=== PATIENT | female | born 1990 | race American Indian/Alaskan Native ===

== ENCOUNTER 2017-11-06 14:40 | Inpatient (IN) | payer OTHER ==
[2017-11-06 16:11] LABS: Hematocrit 41.1 % (30.3-42.9); Hemoglobin 13.6 gm/dl (10.1-14.3); Mean Corpuscular HGB Conc 33 % (30-34); Mean Corpuscular Hemoglobin 31 pg (28-32); Mean Corpuscular Volume 92 fl (79-97); Platelet Count 218 K/mm3 (140-440); Red Blood Count 4.45 M/mm3 (3.65-5.03); Red Cell Distribution Width 13.8 % (13.2-15.2)
[2017-11-06] MEDS ORDERED: MINERAL OIL PO PRN (16:30)
[2017-11-06] MEDS ORDERED: NARCAN 0.4 MG/1 ML IV PRN (16:30)
[2017-11-06] MEDS ORDERED: BRETHINE SUB-Q PRN (16:30)
[2017-11-06] MEDS ORDERED: XYLOCAINE 2% INFILTRATI ONE (16:30)
[2017-11-06] MEDS ORDERED: STADOL IV PRN (16:30)
[2017-11-06] MEDS ORDERED: ePHEDrine SULFATE IV PRN (16:30)
[2017-11-06] MEDS ORDERED: BRETHINE IVP PRN (16:30)
--- NOTE | 2017-11-06 16:38 | History and Physical Report ---
History of Present Illness Date of examination: 11/06/17 Date of admission: 11/06/17 14:40 Chief complaint: IOL secondary to elevated BP History of present illness: This is a 26 yo at 40+1 weeks admitted to labor and delivery with known BP 140-150/90s. patient was sent in by Dr. Lowe. She is late to care with hx of trich treated in this . 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 denies: smoking, alcohol abuse, prescription drug abuse - Obstetrical History Expected Date of Delivery: 11/05/17 Actual Gestation: 40 Week(s) 1 Day(s) : 3 Para: 2 Hx # Term Pregnancies: 2 Number of Pregnancies: 0 Spontaneous Abortions: 0 Induced : 0 Number of Living Children: 2 Medications and Allergies Allergies Allergy/AdvReac Type Severity Reaction Status Date / Time No Known Allergies Allergy Unverified 11/06/17 15:33 Active Meds: Active Medications Butorphanol Tartrate (Stadol) 2 mg IV Q2H PRN PRN Reason: Pain , Severe (7-10) Ephedrine Sulfate (Ephedrine Sulfate) 10 mg IV Q2M PRN PRN Reason: Hypotension Fentanyl (Sublimaze) 100 mcg IV Q2H PRN PRN Reason: Labor Pain Lactated Ringer's (Lactated Ringers) 1,000 mls @ 125 mls/hr IV DIRECT GERRY Lidocaine (Xylocaine 2%) 20 ml INFILTRATI ONCE ONE Stop: 11/06/17 16:31 Review of Systems All systems: negative - Vital Signs Vital signs: Vital Signs Temp Pulse Resp BP 98.1 F 103 H 16 122/66 11/06/17 15:31 11/06/17 15:31 11/06/17 15:31 11/06/17 15:31 Temp Pulse Resp BP Pulse Ox 98.1 F 103 H 16 122/66 11/06/17 15:31 11/06/17 15:31 11/06/17 15:31 11/06/17 15:31 - Physical Exam Breasts: Positive: normal Cardiovascular: Regular rate, Normal S1 Lungs: Positive: Clear to auscultation, Normal air movement Abdomen: Positive: normal appearance, soft, normal bowel sounds. Negative: distention, tenderness, guarding Genitourinary (Female): Positive: normal external genitalia, normal perenium Vulva: both: normal Uterus: Positive: normal size Anus/Rectum: Positive: normal perianal skin Deep Tendon Reflex Grade: Normal +2 - Obstetrical FHR: category 1 Cervical Dilatation: 1 Cervical Effacement Percentage: 60 station: -3 Uterine Contraction Pattern: Irregular Uterine Tone Measurement Phase: Contraction Results Result Diagrams: 11/06/17 16:00 All other labs normal. Assessment and Plan A/P IUP 40+1 weeks Gestational HTN Term elevated BP will add hydralazine BP>160/110 initiate with cervidil for ripening expect vaginal delivery
[2017-11-06 16:54] LABS: Alanine Aminotransferase 8 units/L (7-56); Uric Acid 4.2 mg/dL (3.5-7.6)
[2017-11-06] MEDS ORDERED: CERVIDIL VG PRN (17:00)
[2017-11-06] MEDS ORDERED: PITOCin/NS 30 UNIT/500ML 30 UNITS/500 ML BAG IV SCH (17:00)
[2017-11-06] MEDS ORDERED: PITOCin/NS 20 UNIT/1000ML DRIP 20 UNITS/1,000 ML BAG IV SCH (17:00)
[2017-11-06 19:24] LABS: Bilirubin,Urine NEG (Negative); Blood,Urine NEG (Negative); Color,Urine Yellow (Yellow); Mucus,Urine 3+ /HPF; Protein,Urine <15 mg/dL mg/dL (Negative)
[2017-11-06] MEDS ORDERED: TUCKS PAD TP PRN (19:48)
[2017-11-06] MEDS ORDERED: AMBIEN PO PRN (19:48)
[2017-11-07] MEDS: LACTATED RINGERS 1,000 ML IV SCH ×2 (05:51→07:57)
[2017-11-07] MEDS: SUBLIMAZE IV PRN ×2 (05:52→08:05)
[2017-11-07] MEDS: PITOCin/NS 30 UNIT/500ML 30 UNITS/500 ML BAG IV SCH ×3 (07:57→13:00)
--- NOTE | 2017-11-07 07:58 | Progress Note ---
Assessment and Plan O: VSS AF A: IUP at 40.3 weeks Induction Day 1.5 Latent Labor P: Active Guille't Pain guille't Subjective - Subjective Date of service: 11/07/17 Patient reports: new complaints (Pain with contractions), movement normal , contractions, other (Denies PIH S&S), no loss of fluid, no vaginal bleeding Objective - Vital Signs Vital Signs: Vital Signs - 12hr 11/07/17 11/07/17 11/07/17 00:24 04:00 05:52 Temperature 97.5 F L 97.6 F Pulse Rate 68 81 Respiratory 16 16 18 Rate Blood Pressure 117/60 110/72 [Left] O2 Sat by Pulse 98 98 Oximetry - Exam Abdomen: Present: normal appearance FHR: category 2 FHR comments: minimal variability Uterine Contraction Monitor Mode: External Cervical Dilatation: 2.5 Cervical Effacement Percentage: 90 station: -2 Uterine Contraction Frequency (min): 2 Uterine Contraction Duration: 60-90 Uterine Contraction Pattern: Regular Uterine Tone Measurement Phase: Resting Uterine Contraction Intensity: Strong/Firm - Labs Labs: Abnormal Labs 11/06/17 16:00 Creatinine 0.4 L Lactate Dehydrogenase 192 H Laboratory Results - last 24 hr 11/06/17 11/06/17 11/06/17 16:00 16:00 16:00 WBC 7.8 RBC 4.45 Hgb 13.6 Hct 41.1 MCV 92 MCH 31 MCHC 33 RDW 13.8 Plt Count 218 Creatinine 0.4 L Estimated GFR > 60 Uric Acid 4.2 AST 13 ALT 8 Lactate Dehydrogenase 192 H Urine Color Urine Turbidity Urine pH Ur Specific [place] Urine Protein Urine Glucose (UA) Urine Ketones Urine Blood Urine Nitrite Urine Bilirubin Urine Urobilinogen Ur Leukocyte Esterase Urine WBC (Auto) Urine RBC (Auto) U Epithel Cells (Auto) Urine Mucus Blood Type AB POSITIVE Antibody Screen Negative 11/06/17 Unknown WBC RBC Hgb Hct MCV MCH MCHC RDW Plt Count Creatinine Estimated GFR Uric Acid AST ALT Lactate Dehydrogenase Urine Color Yellow Urine Turbidity Clear Urine pH 5.0 Ur Specific [place] 1.027 Urine Protein <15 mg/dl Urine Glucose (UA) Neg Urine Ketones Neg Urine Blood Neg Urine Nitrite Neg Urine Bilirubin Neg Urine Urobilinogen 4.0 Ur Leukocyte Esterase Neg Urine WBC (Auto) 1.0 Urine RBC (Auto) 1.0 U Epithel Cells (Auto) 1.0 Urine Mucus 3+ Blood Type Antibody Screen
[2017-11-07] MEDS ORDERED: ePHEDrine SULFATE IV PRN (09:06)
[2017-11-07] MEDS ORDERED: NARCAN 2 MG/2 ML IV PRN (09:06)
--- NOTE | 2017-11-07 09:06 | Anesthesia Consultation ---
Anesthesia Consult and Med Hx Date of service: 11/07/17 - Airway Anesthetic Teeth Evaluation: Good ROM Head & Neck: Adequate Mental/Hyoid Distance: Adequate Mallampati Class: Class II Intubation Access Assessment: Probably Good - Pre-Operative Health Status ASA Pre-Surgery Classification: ASA2 Proposed Anesthetic Plan: Epidural, Spinal - Pulmonary Hx Asthma: No COPD: No Hx Pneumonia: No - Cardiovascular System Hx Hypertension: No - Central Nervous System Hx Seizures: No Hx Psychiatric Problems: No - Endocrine Hx Renal Disease: No Hx End Stage Renal Disease: No Hx Hypothyroidism: No Hx Hyperthyroidism: No - Hematic Hx Anemia: No Hx Sickle Cell Disease: No - Other Systems Hx Alcohol Use: No
[2017-11-07] MEDS ORDERED: fentaNYL-BUPIV 2 MCG/ML-0.125% 200 MCG/100 ML BAG EPIDURAL SCH (10:00)
[2017-11-07] MEDS ORDERED: XYLOCAINE 2% INFILTRATI ONE (12:04)
[2017-11-07] MEDS ORDERED: ZOFRAN ONE (13:04)
[2017-11-07] MEDS ORDERED: ZOFRAN IM ONE (13:11)
[2017-11-07] MEDS ORDERED: NACL 0.9% 1000 ML 1,000 ML ONE ×7 (14:19→17:38)
[2017-11-07] MEDS ORDERED: CYTOTEC ONE (14:42)
--- NOTE | 2017-11-07 14:47 | Consultation ---
History of Present Illness Consult date: 11/07/17 Requesting physician: AMIRA VELASQUEZ Reason for consult: other (Shock, hypoxia) History of present illness: This is a 26 yo at 40+1 weeks admitted to labor and delivery with known BP 140-150/90s. She was induced for hypertension and had anormal vaginal delivery. I was called for stat consult for desaturations, tachycardia and hypotension. The initial thought was that this could be a pulmonary embolism. On arrival to the ICU she was hypotensive, hypoxic with vaginal bleeding that was uncontrollable. She was seen and examined. Vitals, labs, medications, chart were reviewed. 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 denies: smoking, alcohol abuse, prescription drug abuse - Obstetrical History Expected Date of Delivery: 11/05/17 Actual Gestation: 40 Week(s) 1 Day(s) : 3 Para: 2 Hx # Term Pregnancies: 2 Number of Pregnancies: 0 Spontaneous Abortions: 0 Induced : 0 Number of Living Children: 2 Past History Social history: no significant social history, single. denies: smoking, alcohol abuse, prescription drug abuse Medications and Allergies Allergies Allergy/AdvReac Type Severity Reaction Status Date / Time No Known Allergies Allergy Unverified 11/06/17 15:33 Home Medications Medication Instructions Recorded Confirmed Last Taken Type Pnv No.95/Ferrous Fum/Folic AC 1 tab PO QDAY 11/06/17 11/06/17 11/05/17 History [ Vitamins Tablet] Active Meds: Active Medications Butorphanol Tartrate (Stadol) 2 mg IV Q2H PRN PRN Reason: Pain , Severe (7-10) Dinoprostone (Cervidil) 10 mg VG Q6H PRN PRN Reason: Cervical Ripening Last Admin: 11/06/17 18:15 Dose: 10 mg Ephedrine Sulfate (Ephedrine Sulfate) 10 mg IV Q2M PRN PRN Reason: Hypotension Ephedrine Sulfate (Ephedrine Sulfate) 10 mg IV Q2M PRN PRN Reason: Hypotension Fentanyl (Sublimaze) 100 mcg IV Q2H PRN PRN Reason: Labor Pain Last Admin: 11/07/17 08:05 Dose: 100 mcg Lactated Ringer's (Lactated Ringers) 1,000 mls @ 125 mls/hr IV DIRECT GERRY Last Admin: 11/07/17 07:57 Dose: 125 mls/hr Oxytocin/Sodium Chloride (Pitocin/Ns 20 Unit/1000ml Drip) 20 units in 1,000 mls @ 125 mls/hr IV DIRECT GERRY Oxytocin/Sodium Chloride (Pitocin/Ns 30 Unit/500ml) 30 units in 500 mls @ 0 mls /hr IV TITR GERRY; Protocol Last Admin: 11/07/17 13:00 Dose: 8 ml/hr, 8 mls/hr Oxytocin/Sodium Chloride (Pitocin/Ns 30 Unit/500ml) 30 units in 500 mls @ 1 mls /hr IV TITR GERRY; Protocol Fentanyl/Bupivacaine/Sodium Chlor (Fentanyl-Bupiv 2 Mcg/Ml-0.125%) 200 mcg in 100 mls @ 12 mls/hr EPIDURAL TITR GERRY; Protocol Last Admin: 11/07/17 09:37 Dose: 12 mls/hr Mineral Oil (Mineral Oil) 30 ml PO QHS PRN PRN Reason: Constipation Naloxone HCl (Narcan 0.4 Mg/1 Ml) 0.1 mg IV Q2MIN PRN PRN Reason: Res Rate </= 8 or 02 SAT < 92% Naloxone HCl (Narcan 2 Mg/2 Ml) 0.2 mg IV Q5M PRN PRN Reason: Respiratory sedation Terbutaline Sulfate (Brethine) 0.25 mg SUB-Q ONCE PRN PRN Reason: Hyperstimulation/Hypertonicity Terbutaline Sulfate (Brethine) 0.25 mg IVP ONCE PRN PRN Reason: Hyperstimulation/Hypertonicity Witch Yudelka/Glycerin (Tucks Pad) 1 each TP PRN PRN PRN Reason: Hemorrhoids Zolpidem Tartrate (Ambien) 10 mg PO QHS PRN PRN Reason: Insomnia Last Admin: 11/07/17 00:22 Dose: 10 mg Review of Systems All systems: negative (feeling cold) Constitutional: chills, fatigue, weakness, no weight loss, no weight gain, no fever Ears, nose, mouth and throat: deferred Breasts: normal Cardiovascular: lightheadedness, shortness of breath, no chest pain, no orthopnea, no palpitations Respiratory: shortness of breath, no cough, no hemoptysis Gastrointestinal: abdominal pain Genitourinary Female: other (vaginal bleeding) Integumentary: deferred Neurological: no paralysis, no weakness, no parathesias, no numbness Psychiatric: anxiety Hematologic/Lymphatic: no easy bruising, no easy bleeding Allergic/Immunologic: no urticaria, no allergic rhinitis Physical Examination Vital signs: Vital Signs Temp Pulse Resp BP 98.1 F 103 H 16 122/66 11/06/17 15:31 11/06/17 15:31 11/06/17 15:31 11/06/17 15:31 General appearance: other (tachypnic, ) Eyes: non-icteric ENT: oropharynx dry Neck: supple, no lymphadenopathy, no JVD Effort: mildly labored Ascultation: Bilateral: diminished breath sounds Cardiovascular: other (tachycardia, no murmurs, no gallops or rubs) Gastrointestinal: normoactive bowel sounds, soft, non-tender, other (uterus about 20 weeks , appears well contracted) Integumentary: normal Extremities: no cyanosis, no edema, pulses normal, no ischemia or petechiae, cool Musculoskeletal: no deformities non-focal exam, pupils equal and round anxious Results - Laboratory Findings CBC and BMP: 11/07/17 15:30 11/07/17 15:30 Abnormal lab findings: Abnormal Labs 11/06/17 16:00 Creatinine 0.4 L Lactate Dehydrogenase 192 H Assessment and Plan -Hemorrhagic shock -Post hemorrhage -IV access..femoral CVC placed -NIPPV for increased work of breathing -Volume resuscitate -Albumin -Massive transfusion protocol -Get stat CBC, PTT,INR, Fibrinogen, CMP -Place brewer catheter -Vasopressin IV, vasopressor support to keep MAP>65 -Electrolyte replacement for massive blood transfusion--replete calcium, monitor for hyperkalemia -Get IR for possible pelvic artery embolization Discussed with OBGYN..needs to go back to OR for examination under anesthesia to evacuate any retained products. She continues to bleed excessively -If we are unable to control the bleeding she may need a hysterectomy as a life saving measure. Critical care time in (mins) excluding proc time.: 65 Critical care attestation.: If time is entered above; I have spent that time in minutes in the direct care of this critically ill patient, excluding procedure time. Critical Care Time: Patient is critically ill with risk of from hemorrhagic shock, DIC and possible acute renal injury form prolonged hypotension
[2017-11-07] MEDS ORDERED: NACL 0.9% 500 ML 500 ML IV NR ×3 (14:49→15:00)
[2017-11-07] MEDS ORDERED: ALBUTEIN IV ONE (14:49)
[2017-11-07] MEDS ORDERED: Vasostrict 20 UNIT in NACL 0.9% 100 ML IV SCH (15:00)
--- NOTE | 2017-11-07 15:29 | Procedure Note ---
OB Delivery Note - Delivery Date of Delivery: 11/07/17 Surgeon: AMIRA VELASQUEZ Estimated blood loss: 1000cc - Vaginal Delivery presentation: vertex Delivery position: OA Intrapartum events: none Delivery induction: none Delivery augmentation: rupture of membranes, pitocin Delivery monitor: external FHT, external uterine Route of delivery: Indicators for instrumentation: nonreassuring FHR tracing Delivery placenta: spontaneous Delivery cord: 3 umbilical vessels Episiotomy: none Delivery laceration: none Anesthesia: none Delivery comments: I was contacted by the nurse for patient experiencing decels to the 90s. I came to room and noted anterior lip which i was easily able to reduce. patient commenced to pushing and vaccuum applied secondary to NRFHT. Patient delivered after pop off 2 x on her last push. She delivered a viable female in OA presentation at 1358. [facility] team present and clamped and cut cord and handed to peds staff. Cord blood sent and cord pH sent The placenta delivered intact with 3 vessel cord. EBL 400 cc. After placenta removed intact , patient began rolling eyes in head and havingdifficulty bleeding in which we called a code. Patient was evaluated and transferred to the ICU. At ICU patient was noted to be bleeding profusely and at that time I decided to proceed to OR for examination under anesthesia and any procedure that needed to be performed. Bleeding noted in the ICU 500cc and in OR 1000cc. Please see note for OR hysterectomy - Infant A Gender: Female (1,3,7 Apgars)
[2017-11-07] MEDS ORDERED: QUELICIN ONE (16:00)
[2017-11-07] MEDS ORDERED: CYTOTEC PR ONE (16:00)
[2017-11-07 16:02] LABS: Hemoglobin 6.1 gm/dl (10.1-14.3); Mean Corpuscular HGB Conc 34 % (30-34); Mean Corpuscular Hemoglobin 31 pg (28-32); Mean Corpuscular Volume 92 fl (79-97); Platelet Count 125 K/mm3 (140-440); Red Blood Count 1.96 M/mm3 (3.65-5.03)
--- NOTE | 2017-11-07 16:08 | Procedure Note ---
Date of procedure: 11/07/17 Pre-op diagnosis: Hemorrhagic shock Post-op diagnosis: same Procedure: Right femoral central venous catheter Consent obtained from the mother Patient was cleaned and draped in sterile fashion. [place] precautions addressed. Time out. Using ultrasound scan the femoral artery was identified. However it was difficult to visualize the vein. Femoral artery was palpated and the finder needle used to puncture and aspirate the femoral vein. Dark red blood was aspirated. Guidewire was passed without difficulty, a stab wound created and the vein dilated. A triple lumen 16cm CVC was passed.( no 20cm available) Guidewire was removed. Blood aspirated from all [address], sterile dressing placed. Patient tolerated the procedure and there was no immediate complications Anesthesia: local (had an epidural for delivery) Estimated blood loss: none Condition: critical
[2017-11-07 16:14] LABS: Alanine Aminotransferase 6 units/L (7-56); Albumin 1.9 g/dL (3.9-5); BUN/Creatinine Ratio 18; Blood Urea Nitrogen 11 mg/dL (7-17); Calcium 6.5 mg/dL (8.4-10.2); Hemolysis Index 68
[2017-11-07] MEDS ORDERED: GELFOAM TP ONE ×2 (16:15)
[2017-11-07 16:24] LABS: INR 7.01 (0.87-1.13); Partial Thromboplastin Time 126.6 Sec. (24.2-36.6)
[2017-11-07 16:47] LABS: Fibrinogen > 1500 mg/dl (211-480)
[2017-11-07] MEDS ORDERED: AMIDATE IV ONE (17:11)
[2017-11-07] MEDS ORDERED: ANCEF ONE ×2 (17:11)
[2017-11-07] MEDS ORDERED: ACD-A 500 ML IV ONE (17:13)
[2017-11-07] MEDS ORDERED: NEO SYNEPHRINE ONE (17:36)
[2017-11-07] MEDS ORDERED: NACL 0.9% 100 ML ONE ×2 (17:36→17:38)
[2017-11-07] MEDS ORDERED: CALCIUM GLUCONATE 1,000 MG in NACL 0.9% 100 ML IV ONE (18:00)
[2017-11-07] MEDS ORDERED: ARTIFICIAL TEARS OPHTH OINT OU PRN ×2 (18:49→19:25)
[2017-11-07] MEDS ORDERED: VASELINE LIP THERAPY TP PRN ×2 (18:49→19:25)
[2017-11-07] MEDS ORDERED: NACL 0.9% IR ONE (18:54)
[2017-11-07] MEDS ORDERED: ACD-A IV ONE (18:54)
[2017-11-07] MEDS ORDERED: fentaNYL DRIP Premix 2,000 MCG/100 ML BAG IV SCH (19:00)
[2017-11-07] MEDS ORDERED: DIPRIVAN 10 MG/ML 1,000 MG/100 ML BOTTLE IV SCH (19:00)
[2017-11-07] MEDS ORDERED: PHENERGAN PR PRN (19:05)
[2017-11-07] MEDS ORDERED: TYLENOL PO PRN (19:05)
[2017-11-07] MEDS ORDERED: BENADRYL PO PRN (19:05)
[2017-11-07] MEDS ORDERED: NORCO 5/325 PO PRN (19:05)
[2017-11-07] MEDS ORDERED: DULCOLAX PR PRN (19:05)
[2017-11-07] MEDS ORDERED: TORADOL IV PRN (19:05)
[2017-11-07] MEDS ORDERED: ZOFRAN IV PRN (19:05)
[2017-11-07] MEDS ORDERED: LANSINOH TP PRN (19:05)
[2017-11-07] MEDS ORDERED: TUCKS PAD TP PRN (19:05)
[2017-11-07] MEDS ORDERED: PERCOCET 5/325 PO PRN (19:05)
[2017-11-07] MEDS ORDERED: MILK OF MAGNESIA PO PRN (19:05)
[2017-11-07] MEDS ORDERED: PHENERGAN PO PRN (19:05)
--- NOTE | 2017-11-07 19:30 | Event Note ---
Date: 11/07/17 Back from OR, intubated. On vasopressor support Apparently had hysterectomy for control of bleeding VAP bundle addressed ABG Adjust minute ventilation once ABGs are available. Get CXR Agitation/Analgesia management
[2017-11-07 19:44] LABS: Eosinophils % (Auto) 0.2 % (0.0-4.3); Hemoglobin 6.5 gm/dl (10.1-14.3); Mean Corpuscular HGB Conc 33 % (30-34); Mean Corpuscular Hemoglobin 31 pg (28-32); Mean Corpuscular Volume 95 fl (79-97); Monocytes # (Auto) 2.5 K/mm3 (0.0-0.8); Monocytes % (Auto) 10.3 % (0.0-7.3); Platelet Count 112 K/mm3 (140-440); Red Cell Distribution Width 14.4 % (13.2-15.2)
[2017-11-07 19:45] LABS: INR 1.88 (0.87-1.13)
[2017-11-07 19:46] LABS: Partial Thromboplastin Time 52.9 Sec. (24.2-36.6)
[2017-11-07] MEDS ORDERED: [UNRECOGNIZED DRUG - REMARK] PO SCH (19:53)
[2017-11-07 19:57] LABS: BUN/Creatinine Ratio 13; Blood Urea Nitrogen 12 mg/dL (7-17); Hemolysis Index 12
[2017-11-07] MEDS ORDERED: SODIUM CHLORIDE FLUSH SYRINGE 10 ML IV SCH (20:00)
[2017-11-07] MEDS ORDERED: MOTRIN PO SCH (20:00)
[2017-11-07 20:01] LABS: Hematocrit 19.9 % (30.3-42.9)
[2017-11-07 20:03] LABS: Basophils % (Auto) 0.1 % (0.0-1.8); Lymphocytes % (Auto) 6.8 % (13.4-35.0)
[2017-11-07 20:04] LABS: Lymphocytes # (Auto) 1.6 K/mm3 (1.2-5.4)
[2017-11-07 20:06] LABS: Alanine Aminotransferase 7 units/L (7-56); Uric Acid 3.6 mg/dL (3.5-7.6)
[2017-11-07 20:10] LABS: Calcium 5.4 mg/dL (8.4-10.2)
[2017-11-07] MEDS ORDERED: CALCIUM GLUCONATE 2,000 MG in NACL 0.9% 100 ML IV ONE (20:22)
[2017-11-07] MEDS: LEVOPHED DRIP 4 MG/NS 250 ML 4 MG/250 ML BAG IV SCH ×2 (20:38→23:45)
--- NOTE | 2017-11-07 20:39 | Operative Report ---
Operative Report Operative Report: 11/07/17 PREOPERATIVE DIAGNOSES: 1. Uterine atony 2. hemorrhage 3. s/p 4.hypovolemic shock POSTOPERATIVE DIAGNOSES: 1-4 KVNG 5. Hematoma on the right posterior 6. Cervical laceration OPERATION: Supracervical hysterectomy and repair of cervical laceration ESTIMATED BLOOD LOSS: 2000ml URINE OUTPUT: 125 mL, red color OPERATION: Supracervical hysterectomy. OPERATION IN DETAIL: The patient was placed in the dorsal supine position after an adequate level of general anesthesia was obtained. The [place] was draining red bloody urine from the bladder. After the patient was prepped and draped in the usual sterile manner, a Pfannenstiel incision was made. Subcutaneous tissue was incised until the level of the rectus fascia was reached. A placido was made in the fascia. This was extended the length of the incision using Villa scissors. The recti muscles were . The peritoneum entered bluntly with fingers. The incision extended vertically up and down taking care to avoid the bladder at the lower pole. The uterus was globular and uniformly enlarged and very boggy. The ovaries were normal for age and so were the tubes. The fundus was delivered out of the incision. The right round ligament was clamped with two Xiomara clamps, cut with Metzenbaum scissors and suture ligated with #0 Vicryl. The anterior leaf of the broad ligament was cut using Metzenbaum scissors. The bladder that was adherent to the anterior aspect of the uterus was gently dissected using sharp and blunt dissection and it was gently pushed down with the sponge on a stick. Two fingers were inserted through the posterior leaf of the right broad ligament. The tissue was cut with Metzenbaum scissors and it was clamped using a straight Ambrocio clamp. Another clamp was placed medial to this. It was cut with Metzenbaum scissors. Sutures transfixed x2 using #0 Vicryl. The right uterine artery was then skeletonized, clamped at the level of the cervical os using a curved Ambrocio clamp. Another clamp was placed medial to this. It was cut with the Metzenbaum scissors and suture transfixed x2 using #0 Vicryl. Similar procedure was done on the opposite side. A superficial incision was made on the anterior pubovesical cervical fascia using the knife and using the sponge on the stick, the tissue was further advanced, trying to avoid trauma to the bladder and ureters. On the right cardinal ligament, a small bite of tissue was taken using straight Ambrocio clamp. It was cut with the knife and suture transfixed using #0 Vicryl. The cervix was preserved. A knife was taken and the fundus was amputated from the cervix and handed over to the scrub nurse to be sent to the lab. The cervix was approximated using interrupted sutures of #0 Vicryl . Adequate hemostasis was assured. Once appropriate hemostasis had been achieved and the lap and instruments counts were reported as correct, restocin and surgicell applied to area of oozing. I evaluated the cervix and noted that on the left lacceration noted with figure of 8 of pop off 0 vicryl used to repair and restocin and surgicel placed. The cervix was approximated using interrupted sutures of #0 Vicryl . A holland drain placed on the right of the patient. Adequate hemostasis was assured. Approximation of fascia using PDS #1 continuous stitch . The skin was approximated [place]. The patient tolerated the procedure well and returned to the ICU in stable condition. A vaginal packing placed in the cervix.
[2017-11-07] MEDS ORDERED: NACL 0.9% 500 ML 500 ML IV ONE ×2 (20:53→21:26)
--- NOTE | 2017-11-07 20:53 | XRay Report ---
FINAL REPORT PROCEDURE: XR CHEST 1V AP TECHNIQUE: Chest radiograph anteroposterior view. CPT 90603 HISTORY: ETT placement COMPARISON: No prior studies are available for comparison. FINDINGS: Heart: Normal. Mediastinum/Vessels: Normal. Lungs/Pleural space: Lungs are clear and expanded. There are no infiltrates.. Bony thorax: No acute osseous abnormality. Life support devices: ET tube is in the mid trachea is 2 centimeters above the wilner.. IMPRESSION: Heart size is normal.. Lungs are clear and expanded. There are no infiltrates.. ET tube is in the mid trachea is 2 centimeters above the wilner..
[2017-11-07] MEDS ORDERED: NACL 0.9% 1000 ML 1,000 ML IV ONE (21:10)
[2017-11-07] MEDS ORDERED: COLACE PO SCH (22:00)
[2017-11-07] MEDS ORDERED: NACL 0.9% 1000 ML 1,000 ML IV SCH (22:00)
[2017-11-07] MEDS ORDERED: ALBURX 25% (ALBUMIN) IV ONE (22:12)
[2017-11-07 22:33] LABS: Anisocytosis 1+; Basophils % (Manual) 0 % (0.0-1.8); Eosinophils % (Manual) 0.5 % (0.0-4.3); Monocytes % (Manual) 2.5 % (0.0-7.3); Platelet Estimate Consistent w Auto; Total Cells Counted 200
[2017-11-07] MEDS: ZOSYN/NS 4.5GM/100ML 4.5 GM/100 ML VIAL IV SCH ×2 (22:54→23:40)
[2017-11-07 23:32] LABS: Band Neutrophils # (Manual) 3.3 K/mm3; Basophils % (Manual) 0 % (0.0-1.8); Eosinophils % (Manual) 0 % (0.0-4.3); Total Cells Counted 200
[2017-11-07 23:33] LABS: Platelet Estimate Consistent w Auto
[2017-11-08] MEDS: LEVOPHED DRIP 4 MG/NS 250 ML 4 MG/250 ML BAG IV SCH (02:39)
--- NOTE | 2017-11-08 03:05 | XRay Report ---
FINAL REPORT PROCEDURE: XR CHEST 1V AP TECHNIQUE: Chest radiograph anteroposterior view. CPT 82920 HISTORY: follow up respiratory failure COMPARISON: No prior studies are available for comparison. FINDINGS: Heart: Normal. Mediastinum/Vessels: Normal. Lungs/Pleural space: Normal. Bony thorax: No acute osseous abnormality. Life support devices: The endotracheal tube is approximately 1 centimeter from the wilner.. IMPRESSION: No acute cardiopulmonary abnormality. The endotracheal tube is approximately 1 centimeter from the wilner..
[2017-11-08] MEDS ORDERED: NACL 0.9% 500 ML 500 ML ONE (05:17)
[2017-11-08] MEDS ORDERED: BOOSTRIX IM ONE (06:00)
[2017-11-08 07:01] LABS: Hematocrit 21.2 % (30.3-42.9); Mean Corpuscular HGB Conc 33 % (30-34); Mean Corpuscular Hemoglobin 31 pg (28-32); Mean Corpuscular Volume 94 fl (79-97); Red Blood Count 2.27 M/mm3 (3.65-5.03); Red Cell Distribution Width 14.3 % (13.2-15.2)
[2017-11-08 07:06] LABS: Platelet Count 73 K/mm3 (140-440)
[2017-11-08 07:21] LABS: Calcium 5.6 mg/dL (8.4-10.2)
[2017-11-08] MEDS: ZOSYN/NS 4.5GM/100ML 4.5 GM/100 ML VIAL IV SCH ×3 (07:40→22:27)
[2017-11-08] MEDS ORDERED: SODIUM BICARBONATE IV ONE (09:32)
--- NOTE | 2017-11-08 09:42 | Consultation ---
History of Present Illness - Reason for Consult Consult date: 11/08/17 acute renal failure, hyperkalemia, metabolic acidosis Requesting physician: BOO MCKEON - History of Present Illness This is a 26 yo AAF without significant PMhx, with at 40+1 weeks initially admitted to labor and delivery. Pt had anormal vaginal delivery. post-delivery course was complicated by heavy, uncontrollable bleeding secondary to cervical laceration, pt underwent emergent hysterectomy/repair of cervical laceration. Course was complicated by hemorrahgic shock, requring vasopressor support incl. vasopressin, levophed. pt was intubated, transferred to the ICU. labs showed worsening metabolic acidosis and hyperkalemia with K of 7 in the setting of renal failure. BUN/Cr elevated at 24/1.9mg/dl from 12/0.9mg/dl, pt is oliguric. Renal consult is requested for management of ELÍAS/hyperkalemia. Pt seen and examined at bedside, intubated, however not sedated, awake, alert, following commands. at bedside. Past History Past Medical History: No medical history Social history: no significant social history, single. denies: smoking, alcohol abuse, prescription drug abuse Family history: no significant family history Medications and Allergies Allergies Allergy/AdvReac Type Severity Reaction Status Date / Time No Known Allergies Allergy Unverified 11/06/17 15:33 Home Medications Medication Instructions Recorded Confirmed Last Taken Type Pnv No.95/Ferrous Fum/Folic AC 1 tab PO QDAY 11/06/17 11/06/17 11/05/17 History [ Vitamins Tablet] Active Meds: Active Medications Acetaminophen (Tylenol) 650 mg PO Q4H PRN PRN Reason: Pain MILD(1-3)/Fever >100.5/TANG Bisacodyl (Dulcolax) 10 mg MD BID PRN PRN Reason: Constipation Dextrose (D50w (25gm) Syringe) 50 ml IV ONCE ONE Stop: 11/08/17 10:01 Famotidine (Pepcid) 20 mg IV DAILY GERRY Hydrophilic Ointment (Vaseline Lip Therapy) 1 applic TP Q2HR PRN PRN Reason: Dry Lips Vasopressin 20 unit/ Sodium (Chloride) 101 mls @ 9.09 mls/hr IV TITR GERRY; Protocol Piperacillin Sod/Tazobactam Sod (Zosyn/Ns 4.5gm/100ml) 4.5 gm in 100 mls @ 200 mls/hr IV Q8HR GERRY; Protocol Last Admin: 11/08/17 07:40 Dose: 200 mls/hr Fentanyl Citrate (Fentanyl Drip Premix) 2,000 mcg in 100 mls @ 3.243 mls/hr IV TITR GERRY; Protocol Last Titration: 11/08/17 08:15 Dose: 0 mcg/kg/hr, 0 mls/hr Propofol (Diprivan 10 Mg/Ml) 1,000 mg in 100 mls @ 1.946 mls/hr IV TITR GERRY; Protocol Norepinephrine (Levophed Drip 4 Mg/Ns 250 Ml) 4 mg in 250 mls @ 7.5 mls/hr IV TITR GERRY; Protocol Last Titration: 11/08/17 07:02 Dose: Infused Sodium Chloride (Nacl 0.9% 1000 Ml) 1,000 mls @ 100 mls/hr IV DIRECT GERRY Last Admin: 11/07/17 22:43 Dose: 100 mls/hr Calcium Gluconate 2,000 mg/ (Sodium Chloride) 120 mls @ 660 mls/hr IV ONCE ONE Stop: 11/08/17 10:10 Sodium Bicarbonate 50 meq/ (Sodium Chloride) 1,050 mls @ 100 mls/hr IV DIRECT GERRY Insulin Human Regular (Humulin R) 5 units IV ONCE ONE Stop: 11/08/17 10:01 Multivitamins (Centrum Liq) 5 ml PO QDAY GERRY Ondansetron HCl (Zofran) 4 mg IV Q8H PRN PRN Reason: Nausea And Vomiting Sodium Chloride (Sodium Chloride Flush Syringe 10 Ml) 10 ml IV PRN GERRY Sodium Polystyrene Sulfonate (Kionex) 30 gm MD ONCE ONE Stop: 11/08/17 10:01 Review of Systems ROS unobtainable: due to endotracheal tube Exam - Vital Signs Vital signs: Vital Signs Temp Pulse Resp BP 98.1 F 103 H 16 122/66 11/06/17 15:31 11/06/17 15:31 11/06/17 15:31 11/06/17 15:31 - General Appearance General appearance: well-developed, well-nourished, appears stated age, intubated EENT: ATNC, PERRL, mucous membranes moist Neck: Present: neck supple Respiratory: Clear to Ascultation Heart: regular, S1S2 Gastrointestinal: Present: normoactive bowel sounds, tenderness Integumentary: no rash, other (no edema b/l LE ) Neurologic: no focal deficit, alert and oriented x3, strength 5/5, CN 3-12 intact Psychiatric: mood/affect appropriate, cooperative Results - Lab Results 11/08/17 06:30 11/08/17 06:30 Most recent lab results Calcium 5.6 mg/dL (8.4-10.2) L* 11/08/17 06:30 Laboratory Tests 11/06/17 11/06/17 11/07/17 17:30 Unknown 14:27 POC ABG pH 7.067 L POC ABG pCO2 70.3 H POC ABG pO2 24 L POC ABG HCO3 20.2 POC ABG Total CO2 22 POC ABG O2 Sat 24 POC ABG Base Excess -10 FiO2 21 Glucose Lactic Acid Uric Acid Calcium Total Bilirubin AST ALT Alkaline Phosphatase Lactate Dehydrogenase Total Protein Albumin Albumin/Globulin Ratio Urine Color Yellow Urine Turbidity Clear Urine pH 5.0 Ur Specific Alfred 1.027 Urine Protein <15 mg/dl Urine Glucose (UA) Neg Urine Ketones Neg Urine Blood Neg Urine Nitrite Neg Urine Bilirubin Neg Urine Urobilinogen 4.0 Ur Leukocyte Esterase Neg Urine WBC (Auto) 1.0 Urine RBC (Auto) 1.0 U Epithel Cells (Auto) 1.0 Urine Mucus 3+ RPR Nonreactive 11/07/17 11/07/17 11/07/17 15:30 19:23 19:23 POC ABG pH POC ABG pCO2 POC ABG pO2 POC ABG HCO3 POC ABG Total CO2 POC ABG O2 Sat POC ABG Base Excess FiO2 Glucose 106 H Lactic Acid 7.40 H* Uric Acid 3.6 Calcium 6.5 L Total Bilirubin 1.50 H AST 18 ALT 6 L Alkaline Phosphatase 93 Lactate Dehydrogenase 235 H Total Protein 3.2 L Albumin 1.9 L Albumin/Globulin Ratio 1.5 Urine Color Urine Turbidity Urine pH Ur Specific Alfred Urine Protein Urine Glucose (UA) Urine Ketones Urine Blood Urine Nitrite Urine Bilirubin Urine Urobilinogen Ur Leukocyte Esterase Urine WBC (Auto) Urine RBC (Auto) U Epithel Cells (Auto) Urine Mucus RPR 11/08/17 11/08/17 05:39 06:30 POC ABG pH 7.372 POC ABG pCO2 23.4 L POC ABG pO2 246 H POC ABG HCO3 13.6 POC ABG Total CO2 14 POC ABG O2 Sat 100 POC ABG Base Excess -12 FiO2 50 Glucose Lactic Acid Uric Acid Calcium 5.6 L* Total Bilirubin AST ALT Alkaline Phosphatase Lactate Dehydrogenase Total Protein Albumin Albumin/Globulin Ratio Urine Color Urine Turbidity Urine pH Ur Specific Alfred Urine Protein Urine Glucose (UA) Urine Ketones Urine Blood Urine Nitrite Urine Bilirubin Urine Urobilinogen Ur Leukocyte Esterase Urine WBC (Auto) Urine RBC (Auto) U Epithel Cells (Auto) Urine Mucus RPR Assessment and Plan - Patient Problems (1) Acute kidney failure with tubular necrosis Current Visit: Yes Status: Acute Plan to address problem: secondary to hemorrhagic shock. pt is currently oliguric, however BP is now stabilized s/p multiple blood products, on vasopressin/levophed, which is currently being titrated down. Will treat hyperkalemia/met acidosis medically as below, if refractory to medical treatment with worsening renal function will consider renal replacement therapy. cont supportive care for ELÍAS/ATN, avoid nephrotoxins, NSAIDs, cont vasopressor support to keep MAP < 65mmhg. D/w RN, ICU team, Dr Mckeon, pt's at bedside regarding renal care plan. Total CCM time spent 46min. (2) Hyperkalemia Current Visit: Yes Status: Acute Plan to address problem: medical treatment with D50, IV insulin, Sodium bicarb 50meq IVP, start bicarb gtt. once NGT placed will give kayexelate. if hyperkalemia is refractory to medical treatment will consider renal replacement therapy. (3) Metabolic acidosis Current Visit: Yes Status: Acute Plan to address problem: 1 amp of na bicarb 50meq, start bicarb gtt. (4) Hemorrhagic shock Current Visit: Yes Status: Acute Plan to address problem: s/p emergent hysterectomy (5) Acute blood loss anemia Current Visit: Yes Status: Acute Plan to address problem: s/p multiple blood porducts incl. 6PRBC, 4 FFPs. transfuse prn for Hb <7 (6) Acute respiratory failure with hypoxia Current Visit: Yes Status: Acute Plan to address problem: vent management as per Dr Mckeon
[2017-11-08] MEDS: PEPCID IV SCH (09:55)
[2017-11-08] MEDS ORDERED: PRENATAL VITAMIN PO SCH (10:00)
[2017-11-08] MEDS ORDERED: CALCIUM GLUCONATE 2,000 MG in NACL 0.9% 100 ML IV ONE (10:00)
[2017-11-08] MEDS ORDERED: HumuLIN R IV ONE (10:00)
[2017-11-08] MEDS ORDERED: KIONEX PR ONE (10:00)
[2017-11-08] MEDS ORDERED: D50W (25GM) Syringe IV ONE (10:00)
[2017-11-08] MEDS ORDERED: SODIUM BICARBONATE 50 MEQ in NACL 0.9% 1000 ML 1,000 ML IV SCH (10:00)
[2017-11-08] MEDS: SUBLIMAZE IV PRN ×4 (11:53→22:01)
[2017-11-08] MEDS ORDERED: FLAGYL 500 MG/100 ML 500 MG/100 ML BAG IV ONE (12:00)
[2017-11-08] MEDS ORDERED: SODIUM BICARBONATE 150 MEQ in D5W 1,000 ML IV ONE (12:00)
[2017-11-08] MEDS: FLAGYL 500 MG/100 ML 500 MG/100 ML BAG IV SCH ×2 (12:18→22:11)
[2017-11-08 12:22] LABS: INR 1.4 (0.87-1.13); Partial Thromboplastin Time 37.7 Sec. (24.2-36.6)
[2017-11-08 12:35] LABS: Albumin 1.8 g/dL (3.9-5); Calcium 6.4 mg/dL (8.4-10.2)
[2017-11-08] MEDS: Centrum Liq PO SCH (14:09)
--- NOTE | 2017-11-08 14:25 | Progress Note ---
Assessment and Plan Post operative hypoxemic resppiratory failure on MVS -Hemorrhagic shock -Massive blood transfusion -Metabolic acidosis -Acute kidney failure secondary to ATN -Sepsis -post hysterectomy -Post hemorrhage -DIC -Hyperkalemia -VAP bundle addresed -Plan to get SBT today and liberate from mechanical ventilatory support- -IV access..femoral CVC -Renal consult placed, discussed with cuffing machine operator -Give one dose of bicarbonate, medically treat hyperkalemia -Avoid nephrotoxics and adjust all medication dosing for GFR/CrCL -SCDs for VTE prophylaxis -Empiric antibiotics..Zosyn -Metronidazole for 24 hours only. No data to suggest double anaerobic coverage is needed. Follow up all cultures and monitor WCC -No further transfusions of blood products, get CBC and renal panel in 12 hours -Monitor epidural site for further bleeding -Supportive care -Electrolyte replacement for massive blood transfusion--replete calcium, monitor for hyperkalemia Discussed with OBGYN( Dr. Mai) Subjective Date of service: 11/08/17 Principal diagnosis: Hemrrohagic shock, DIC, Septic shock, DIC, post hemorrhage Interval history: Follow up for acute hypoxic respiratory failure( post operatively), hemorrhagic shock, DIC, septic shock Seen and examined. Vitals, labs, medications, chart reviewed. Events overnight noted Off vasopresor support Discussed in IDT rounds Objective Vital Signs - 12hr 11/08/17 11/08/17 11/08/17 02:24 02:31 02:45 Temperature 98.4 F Pulse Rate 111 H 106 H Respiratory 17 18 Rate Blood Pressure 108/73 131/85 O2 Sat by Pulse 100 100 Oximetry 11/08/17 11/08/17 11/08/17 03:00 03:15 03:30 Temperature Pulse Rate 100 H 102 H 101 H Respiratory 17 19 18 Rate Blood Pressure 121/92 121/73 119/83 O2 Sat by Pulse 100 100 100 Oximetry 11/08/17 11/08/17 11/08/17 03:45 04:00 04:01 Temperature 98.4 F Pulse Rate 100 H 101 H 108 H Respiratory 18 10 L Rate Blood Pressure 118/70 127/86 108/81 O2 Sat by Pulse 100 100 100 Oximetry 11/08/17 11/08/17 11/08/17 04:03 04:15 04:30 Temperature 98.4 F Pulse Rate 114 H 113 H Respiratory 15 16 Rate Blood Pressure 108/81 127/86 O2 Sat by Pulse 100 100 Oximetry 11/08/17 11/08/17 11/08/17 04:45 05:01 05:15 Temperature Pulse Rate 107 H 104 H 105 H Respiratory 17 17 17 Rate Blood Pressure 127/86 131/80 136/78 O2 Sat by Pulse 100 100 100 Oximetry 11/08/17 11/08/17 11/08/17 05:31 05:35 05:45 Temperature 98.5 F Pulse Rate 109 H 110 H Respiratory 16 13 Rate Blood Pressure 133/41 126/72 O2 Sat by Pulse 100 100 Oximetry 11/08/17 11/08/17 11/08/17 06:00 06:08 06:15 Temperature 98.5 F Pulse Rate 101 H 96 H Respiratory 18 19 Rate Blood Pressure 132/61 134/71 O2 Sat by Pulse 100 100 Oximetry 11/08/17 11/08/17 11/08/17 06:30 06:45 07:00 Temperature Pulse Rate 101 H 105 H 99 H Respiratory 20 17 17 Rate Blood Pressure 135/70 136/64 128/71 O2 Sat by Pulse 100 100 100 Oximetry 11/08/17 11/08/17 11/08/17 07:15 07:30 07:45 Temperature Pulse Rate 107 H 109 H 97 H Respiratory 15 13 19 Rate Blood Pressure 122/81 129/74 O2 Sat by Pulse 100 100 100 Oximetry 11/08/17 11/08/17 11/08/17 08:00 08:01 08:02 Temperature 98.7 F Pulse Rate 101 H 106 H Respiratory 17 Rate Blood Pressure 139/64 139/64 O2 Sat by Pulse 100 100 Oximetry 11/08/17 11/08/17 11/08/17 08:05 08:15 08:30 Temperature Pulse Rate 100 H 95 H 116 H Respiratory 10 L 9 L 11 L Rate Blood Pressure 139/94 127/69 116/55 O2 Sat by Pulse 100 100 100 Oximetry 11/08/17 11/08/17 11/08/17 08:45 09:00 09:14 Temperature 98.1 F Pulse Rate 120 H 114 H 114 H Respiratory 10 L 12 11 L Rate Blood Pressure 116/64 116/68 116/68 O2 Sat by Pulse 100 100 100 Oximetry 05/02/18 05/02/18 05/02/18 09:15 09:29 09:30 Temperature 97.9 F Pulse Rate 109 H 123 H 116 H Respiratory 10 L 13 10 L Rate Blood Pressure 118/62 118/62 120/68 O2 Sat by Pulse 100 100 100 Oximetry 11/08/17 11/08/17 11/08/17 09:45 09:59 10:00 Temperature 98.4 F Pulse Rate 115 H 113 H 115 H Respiratory 12 13 12 Rate Blood Pressure 109/60 108/67 108/67 O2 Sat by Pulse 100 100 100 Oximetry 11/08/17 11/08/17 11/08/17 10:15 10:30 10:45 Temperature Pulse Rate 152 H 133 H 134 H Respiratory 16 14 13 Rate Blood Pressure 103/72 124/64 128/68 O2 Sat by Pulse 100 100 100 Oximetry 11/08/17 11/08/17 11/08/17 11:00 11:15 11:30 Temperature Pulse Rate 118 H 114 H 141 H Respiratory 12 13 17 Rate Blood Pressure 123/62 119/66 129/75 O2 Sat by Pulse 100 100 100 Oximetry 11/08/17 11/08/17 11/08/17 11:31 11:46 11:53 Temperature Pulse Rate 155 H Respiratory 25 H 20 Rate Blood Pressure 129/75 O2 Sat by Pulse 100 100 Oximetry 11/08/17 11/08/17 11/08/17 12:00 12:01 12:16 Temperature 100.9 F H Pulse Rate 143 H 155 H Respiratory 14 21 Rate Blood Pressure 124/69 124/69 O2 Sat by Pulse 100 100 Oximetry 11/08/17 11/08/17 11/08/17 12:30 12:45 13:00 Temperature Pulse Rate 140 H 137 H 133 H Respiratory 20 18 19 Rate Blood Pressure 125/78 122/69 122/69 O2 Sat by Pulse 100 100 100 Oximetry 11/08/17 11/08/17 13:15 13:30 Temperature Pulse Rate 133 H 138 H Respiratory 13 20 Rate Blood Pressure 115/72 122/69 O2 Sat by Pulse 100 100 Oximetry Constitutional: other (orally intubated to mechanical ventilatory support) Eyes: non-icteric ENT: oropharynx dry Neck: supple, no lymphadenopathy, no JVD Effort: normal, mildly labored Ascultation: Bilateral: clear, diminished breath sounds Cardiovascular: other (tachycardia, no murmurs, no gallops or rubs) Gastrointestinal: normoactive bowel sounds, soft, non-tender, tender, other (ADRIEN drain in place, clean dry abdominal dressing) Integumentary: normal Extremities: no cyanosis, no edema, pulses normal, no ischemia or petechiae, cool Neurologic: non-focal exam, pupils equal and round Psychiatric: mood appropriate, affect normal, anxious CBC and BMP: 11/08/17 06:30 11/08/17 12:01 ABG, PT/INR, D-dimer: ABG POC ABG pH 7.372 (7.35-7.45) 11/08/17 05:39 POC ABG pCO2 23.4 (35-45) L 11/08/17 05:39 POC ABG pO2 246 (80-105) H 11/08/17 05:39 POC ABG HCO3 13.6 11/08/17 05:39 POC ABG Total CO2 14 11/08/17 05:39 POC ABG O2 Sat 100 11/08/17 05:39 PT/INR, D-dimer PT 18.0 Sec. (12.2-14.9) H 11/08/17 12:01 INR 1.40 (0.87-1.13) H 11/08/17 12:01 D-Dimer > 50409 ng/mlDDU (0-234) H 11/07/17 15:30 Abnormal lab findings: Abnormal Labs 11/06/17 11/06/17 11/07/17 16:00 16:00 14:27 WBC RBC Hgb Hct Plt Count Lymph % (Auto) Schleicher % (Auto) Schleicher # Seg Neutrophils % Seg Neuts % (Manual) Lymphocytes % (Manual) Seg Neutrophils # Seg Neutrophils # Man Lymphocytes # (Manual) PT INR APTT Fibrinogen D-Dimer POC ABG pH 7.067 L POC ABG pCO2 70.3 H POC ABG pO2 24 L Sodium Potassium Chloride Carbon Dioxide BUN Creatinine 0.4 L Glucose Lactic Acid Calcium Total Bilirubin AST ALT Lactate Dehydrogenase 192 H Total Protein Albumin Crossmatch See Detail 11/07/17 11/07/17 11/07/17 15:30 15:30 15:30 WBC 21.7 H RBC 1.96 L Hgb 6.1 L D Hct 18.0 L* D Plt Count 125 L Lymph % (Auto) Schleicher % (Auto) Schleicher # Seg Neutrophils % Seg Neuts % (Manual) 95.5 H Lymphocytes % (Manual) 1.5 L Seg Neutrophils # Seg Neutrophils # Man 20.7 H Lymphocytes # (Manual) 0.3 L PT 65.9 H INR 7.01 H* APTT 126.6 H* Fibrinogen > 1500 H D-Dimer > 53550 H POC ABG pH POC ABG pCO2 POC ABG pO2 Sodium Potassium Chloride 107.1 H Carbon Dioxide 18 L BUN Creatinine 0.6 L Glucose 106 H Lactic Acid Calcium 6.5 L Total Bilirubin 1.50 H AST ALT 6 L Lactate Dehydrogenase Total Protein 3.2 L Albumin 1.9 L Crossmatch 11/07/17 11/07/17 11/07/17 18:35 19:23 19:23 WBC 23.9 H RBC 2.10 L Hgb 6.5 L Hct 19.9 L* Plt Count 112 L Lymph % (Auto) 6.8 L Schleicher % (Auto) 10.3 H Schleicher # 2.5 H Seg Neutrophils % 82.0 H Seg Neuts % (Manual) 81.5 H Lymphocytes % (Manual) 2.5 L Seg Neutrophils # 19.6 H Seg Neutrophils # Man 19.5 H Lymphocytes # (Manual) 0.6 L PT 22.8 H INR 1.88 H APTT 52.9 H Fibrinogen D-Dimer POC ABG pH POC ABG pCO2 POC ABG pO2 Sodium Potassium Chloride Carbon Dioxide BUN Creatinine Glucose Lactic Acid Calcium Total Bilirubin AST ALT Lactate Dehydrogenase Total Protein Albumin Crossmatch See Detail 11/07/17 11/07/17 11/07/17 19:23 19:23 19:23 WBC RBC Hgb Hct Plt Count Lymph % (Auto) Schleicher % (Auto) Schleicher # Seg Neutrophils % Seg Neuts % (Manual) Lymphocytes % (Manual) Seg Neutrophils # Seg Neutrophils # Man Lymphocytes # (Manual) PT INR APTT Fibrinogen D-Dimer POC ABG pH POC ABG pCO2 POC ABG pO2 Sodium Potassium Chloride 109.3 H Carbon Dioxide 16 L BUN Creatinine Glucose 151 H Lactic Acid 7.40 H* Calcium 5.4 L* D Total Bilirubin AST ALT Lactate Dehydrogenase 235 H Total Protein Albumin Crossmatch 11/08/17 11/08/17 11/08/17 05:39 06:30 06:30 WBC 24.0 H RBC 2.27 L Hgb 7.0 L Hct 21.2 L Plt Count 73 L Lymph % (Auto) Schleicher % (Auto) Schleicher # Seg Neutrophils % Seg Neuts % (Manual) Lymphocytes % (Manual) Seg Neutrophils # Seg Neutrophils # Man Lymphocytes # (Manual) PT INR APTT Fibrinogen D-Dimer POC ABG pH POC ABG pCO2 23.4 L POC ABG pO2 246 H Sodium Potassium 7.0 H* D Chloride 113.5 H Carbon Dioxide 14 L BUN 24 H Creatinine 1.9 H D Glucose 139 H Lactic Acid Calcium 5.6 L* Total Bilirubin AST ALT Lactate Dehydrogenase Total Protein Albumin Crossmatch 11/08/17 11/08/17 12:01 12:01 WBC RBC Hgb Hct Plt Count Lymph % (Auto) Schleicher % (Auto) Schleicher # Seg Neutrophils % Seg Neuts % (Manual) Lymphocytes % (Manual) Seg Neutrophils # Seg Neutrophils # Man Lymphocytes # (Manual) PT 18.0 H INR 1.40 H APTT 37.7 H Fibrinogen D-Dimer POC ABG pH POC ABG pCO2 POC ABG pO2 Sodium 146 H Potassium Chloride 115.2 H Carbon Dioxide 16 L BUN 27 H Creatinine 2.2 H Glucose 101 H Lactic Acid Calcium 6.4 L Total Bilirubin AST 88 H ALT Lactate Dehydrogenase Total Protein 3.1 L Albumin 1.8 L Crossmatch Chest x-ray: image reviewed (ETT in place, low, no acute pulmonary infiltrates) Allied health notes reviewed: RT Critical care time in (mins) excluding proc time.: 35 Critical care attestation.: If time is entered above; I have spent that time in minutes in the direct care of this critically ill patient, excluding procedure time.
--- NOTE | 2017-11-08 17:07 | Progress Note ---
<ESTEFANIA LOWE - Last Filed: 11/09/17 08:49> Subjective - Subjective Date of service: 11/09/17 Interval history: Pt feels well this morning since being extubated. She reports some incisional pain. She has had two bowel movements yesterday. Patient reports: flatus, bowel movement, other (tolerating clear ) : doing well, in NICU Objective - Vital Signs Latest vital signs: Vital Signs Temp Pulse Resp BP Pulse Ox 11/09/17 08:15 102 H 21 108/67 97 11/09/17 08:00 98.0 F 104 H 23 108/65 97 11/09/17 07:46 109 H 16 97/63 96 11/09/17 07:44 95 11/09/17 07:30 98.4 F 105 H 20 97/63 97 11/09/17 07:15 113 H 21 107/64 95 11/09/17 07:00 110 H 21 106/59 95 11/09/17 06:45 115 H 17 104/61 94 11/09/17 06:30 117 H 17 98/60 96 11/09/17 06:15 117 H 18 102/61 94 11/09/17 06:09 98.7 F 11/09/17 06:00 117 H 19 107/56 96 11/09/17 05:45 116 H 19 97/55 96 11/09/17 05:39 98.7 F 11/09/17 05:30 116 H 17 101/58 94 11/09/17 05:16 127 H 14 100/57 99 11/09/17 05:00 98.5 F 118 H 16 100/57 99 11/09/17 04:45 120 H 18 102/59 100 11/09/17 04:30 99 F 122 H 18 100/56 99 11/09/17 04:15 122 H 19 102/58 98 11/09/17 04:00 122 H 18 99/60 93 11/09/17 03:45 132 H 14 116/63 94 11/09/17 03:30 130 H 21 107/62 95 11/09/17 03:15 130 H 16 109/54 94 11/09/17 03:10 97.7 F 11/09/17 03:00 123 H 16 100/61 92 11/09/17 02:45 123 H 18 98/58 93 11/09/17 02:30 126 H 16 102/59 98 050318 02:20 98.5 F 11/09/17 02:15 126 H 21 97/52 97 11/09/17 02:00 142 H 30 H 85/61 93 18 01:45 134 H 22 85/61 93 11/09/17 01:30 137 H 18 92/51 98 11/09/17 01:15 140 H 22 101/61 98 11/09/17 01:00 137 H 21 100/58 99 03 00:53 100.4 F H 11/09/17 00:45 140 H 22 99/55 99 11/09/17 00:36 19 99 11/09/17 00:30 131 H 19 92/49 99 11/09/17 00:23 100.2 F H 11/09/17 00:15 128 H 19 92/46 91 11/09/17 00:08 99.8 F H 11/09/17 00:06 131 H 20 95/48 90 11/09/17 00:00 128 H 19 95/48 92 02 23:46 100 F H 11/08/17 23:45 127 H 18 94/48 95 11/08/17 23:30 136 H 19 101/57 98 11/08/17 23:15 137 H 19 105/56 98 11/08/17 23:00 136 H 17 104/63 98 11/08/17 22:46 140 H 19 104/63 100 18 22:30 133 H 19 107/57 100 0218 22:15 135 H 18 98/58 100 0218 22:00 134 H 19 105/55 100 18 21:45 137 H 19 105/55 100 0502/18 21:30 133 H 20 97/54 100 0218 21:15 140 H 17 105/55 100 0218 21:00 133 H 16 96/54 100 0218 20:45 147 H 26 H 95/59 100 0218 20:30 135 H 18 100/53 100 0502/18 20:15 133 H 19 95/51 100 050218 20:00 131 H 22 101/46 100 05 19:45 135 H 20 98/52 100 0518 19:37 99.8 F H 05 19:30 140 H 20 104/61 100 11/08/17 19:16 148 H 26 H 104/64 95 0518 19:04 20 11/08/17 19:00 134 H 20 103/53 97 0518 18:45 144 H 25 H 102/45 94 050218 18:36 134 H 22 97/47 96 11/08/17 17:45 144 H 24 117/64 98 11/08/17 17:30 145 H 28 H 110/56 97 11/08/17 17:16 150 H 27 H 110/56 96 11/08/17 17:00 131 H 22 106/61 99 11/08/17 16:45 131 H 19 123/57 97 18 16:36 17 11/08/17 16:30 133 H 18 114/58 99 11/08/17 16:15 128 H 19 117/56 100 11/08/17 16:00 98.7 F 125 H 21 109/53 100 18 15:45 123 H 19 101/53 100 0218 15:30 125 H 19 103/53 100 11/08/17 15:15 133 H 18 108/61 99 11/08/17 15:00 130 H 17 112/61 100 18 14:45 128 H 20 115/50 100 0218 14:30 128 H 16 109/52 100 18 14:15 127 H 17 104/51 100 11/08/17 14:00 128 H 18 109/57 100 18 13:45 133 H 19 118/58 100 0218 13:30 138 H 20 122/69 100 05/02/18 13:15 133 H 13 115/72 100 05/0218 13:00 133 H 19 122/69 100 050218 12:45 137 H 18 122/69 100 050218 12:30 140 H 20 125/78 100 05/02/18 12:23 15 050218 12:16 155 H 21 124/69 100 05/0218 12:01 100.9 F H 02 12:00 143 H 14 124/69 100 11/08/17 11:53 20 11/08/17 11:46 155 H 25 H 129/75 100 11/08/17 11:31 100 11/08/17 11:30 141 H 17 129/75 100 11/08/17 11:15 114 H 13 119/66 100 11/08/17 11:00 118 H 12 123/62 100 11/08/17 10:45 134 H 13 128/68 100 11/08/17 10:30 133 H 14 124/64 100 11/08/17 10:15 152 H 16 103/72 100 11/08/17 10:00 115 H 12 108/67 100 11/08/17 09:59 98.4 F 113 H 13 108/67 100 11/08/17 09:45 115 H 12 109/60 100 11/08/17 09:30 116 H 10 L 120/68 100 11/08/17 09:29 97.9 F 123 H 13 118/62 100 11/08/17 09:15 109 H 10 L 118/62 100 11/08/17 09:14 98.1 F 114 H 11 L 116/68 100 11/08/17 09:00 114 H 12 116/68 100 Intake and Output 11/08/17 11/09/17 11/09/17 22:59 06:59 14:59 Intake Total 1022 840 250 Output Total 530 100 Balance 492 740 250 Intake: IV 300 100 FLAGYL 500 MG/100 ML 500 100 100 mg In 100 ml @ 100 mls/hr IV Q8H [facility]Y Rx#:[id number] ZOSYN/NS 4.5GM/100ML 4.5 200 gm In 100 ml @ 200 mls/hr IV Q8HR GERRY Rx#: [id number] Oral 482 240 Intake, Free Water 240 Blood Product 500 250 Leukoreduced Red Blood 250 Cells Unit [id number] Leukoreduced Red Blood 250 Cells Unit [id number] Leukoreduced Red Blood 0 250 Cells Unit [id number] Output: Drainage 100 50 Abdomen 100 50 Urine 430 50 Indwelling Catheter 330 50 Uretheral ([place]) 100 Other: Total, Intake Amount 482 240 Total, Output Amount 110 0 Voiding Method Indwelling Catheter # Bowel Movements 0 - Exam Breasts: Present: deferred Cardiovascular: Present: Regular rate (tachycardic) Lungs: Present: Clear to auscultation Abdomen: Present: soft, normal bowel sounds Extremities: Present: normal Incision: Present: dressed - Labs Labs: Abnormal lab results 11/06/17 11/07/17 11/08/17 Range/Units 16:00 18:35 12:01 WBC (4.5-11.0) K/mm3 RBC (3.65-5.03) M/mm3 Hgb (10.1-14.3) gm/dl Hct (30.3-42.9) % Plt Count (140-440) K/mm3 PT (12.2-14.9) Sec. INR (0.87-1.13) APTT (24.2-36.6) Sec. Sodium 146 H (137-145) mmol/L Chloride 115.2 H (98-107) mmol/L Carbon Dioxide 16 L (22-30) mmol/L BUN 27 H (7-17) mg/dL Creatinine 2.2 H (0.7-1.2) mg/dL Glucose 101 H (65-100) mg/dL Calcium 6.4 L (8.4-10.2) mg/dL AST 88 H (5-40) units/L Total Protein 3.1 L (6.3-8.2) g/dL Albumin 1.8 L (3.9-5) g/dL Crossmatch See Detail See Detail 11/08/17 11/08/17 Range/Units 12:01 21:09 WBC 15.9 H (4.5-11.0) K/mm3 RBC 1.26 L (3.65-5.03) M/mm3 Hgb 3.9 L* D (10.1-14.3) gm/dl Hct 11.6 L* D (30.3-42.9) % Plt Count 64 L (140-440) K/mm3 PT 18.0 H (12.2-14.9) Sec. INR 1.40 H (0.87-1.13) APTT 37.7 H (24.2-36.6) Sec. Sodium (137-145) mmol/L Chloride (98-107) mmol/L Carbon Dioxide (22-30) mmol/L BUN (7-17) mg/dL Creatinine (0.7-1.2) mg/dL Glucose (65-100) mg/dL Calcium (8.4-10.2) mg/dL AST (5-40) units/L Total Protein (6.3-8.2) g/dL Albumin (3.9-5) g/dL Crossmatch <AMIRA VLEASQUEZ M - Last Filed: 11/09/17 18:48> Assessment and Plan A/P PPD1 POD 1 /supracervical hysterectomy Post operative hypoxemic resppiratory failure on MVS -Hemorrhagic shock -Massive blood transfusion -Metabolic acidosis -Acute kidney failure secondary to ATN -Sepsis -post hysterectomy -Post hemorrhage -DIC -Hyperkalemia prbc cryo dressing change platelets <50 advance diet as tolerated await recommendations from renal , cook boat CT scan of brain possible ct angiogram Subjective - Subjective Date of service: 11/08/17 Principal diagnosis: Hemrrohagic shock, DIC, Septic shock, DIC, post hemorrhage Interval history: This is a 26 yo at 40+1 weeks admitted to labor and delivery with known BP 140-150/90s. patient was sent in by Dr. Lowe. She is late to care with hx of trich treated in this . Patient reports: appetite normal, pain well controlled [place]: doing well, in NICU Objective - Vital Signs Latest vital signs: Vital Signs Temp Pulse Resp BP Pulse Ox 11/08/17 16:36 17 11/08/17 16:15 128 H 19 117/56 100 11/08/17 16:00 125 H 20 109/53 100 11/08/17 15:45 123 H 19 101/53 100 11/08/17 15:30 125 H 19 103/53 100 11/08/17 15:15 133 H 18 108/61 99 11/08/17 15:00 130 H 17 112/61 100 11/08/17 14:45 128 H 20 115/50 100 11/08/17 14:30 128 H 16 109/52 100 11/08/17 14:15 127 H 17 104/51 100 11/08/17 14:00 128 H 18 109/57 100 11/08/17 13:45 133 H 19 118/58 100 11/08/17 13:30 138 H 20 122/69 100 11/08/17 13:15 133 H 13 115/72 100 05/08/27 13:00 133 H 19 122/69 100 /0218 12:45 137 H 18 122/69 100 /02 12:30 140 H 20 125/78 100 050218 12:23 15 05/0218 12:16 155 H 21 124/69 100 /0218 12:01 100.9 F H 02 12:00 143 H 14 124/69 100 /0218 11:53 20 11/08/17 11:46 155 H 25 H 129/75 100 05/02/18 11:31 100 02 11:30 141 H 17 129/75 100 02 11:15 114 H 13 119/66 100 11/08/17 11:00 118 H 12 123/62 100 11/08/17 10:45 134 H 13 128/68 100 /08/27 10:30 133 H 14 124/64 100 11/08/17 10:15 152 H 16 103/72 100 11/08/17 10:00 115 H 12 108/67 100 02 09:59 98.4 F 113 H 13 108/67 100 /02/18 09:45 115 H 12 109/60 100 02 09:30 116 H 10 L 120/68 100 /02 09:29 97.9 F 123 H 13 118/62 100 /02/18 09:15 109 H 10 L 118/62 100 /02/18 09:14 98.1 F 114 H 11 L 116/68 100 /02/18 09:00 114 H 12 116/68 100 05/02/18 08:45 120 H 10 L 116/64 100 /02/18 08:30 116 H 11 L 116/55 100 05/02/18 08:15 95 H 9 L 127/69 100 05/02/18 08:05 100 H 10 L 139/94 100 05/0218 08:02 106 H 139/64 100 05/02/18 08:01 98.7 F 11/08/17 08:00 101 H 17 139/64 100 05/02/18 07:45 97 H 19 129/74 100 05/02/18 07:30 109 H 13 100 0502/18 07:15 107 H 15 122/81 100 05/0218 07:00 99 H 17 128/71 100 0502/18 06:45 105 H 17 136/64 100 050218 06:30 101 H 20 135/70 100 050218 06:15 96 H 19 134/71 100 /0218 06:08 98.5 F 02 06:00 101 H 18 132/61 100 0502/18 05:45 110 H 13 126/72 100 050218 05:35 98.5 F 0502 05:31 109 H 16 133/41 100 05/02/18 05:15 105 H 17 136/78 100 02 05:01 104 H 17 131/80 100 02 04:45 107 H 17 127/86 100 0218 04:30 113 H 16 127/86 100 02 04:15 114 H 15 108/81 100 02 04:03 98.4 F 11/08/17 04:01 108 H 10 L 108/81 100 0218 04:00 98.4 F 101 H 127/86 100 02/18 03:45 100 H 18 118/70 100 /02/18 03:30 101 H 18 119/83 100 02/18 03:15 102 H 19 121/73 100 0502/18 03:00 100 H 17 121/92 100 02/18 02:45 106 H 18 131/85 100 0218 02:31 111 H 17 108/73 100 02/18 02:24 98.4 F 050218 02:15 115 H 17 121/77 100 05/02/18 02:01 98.4 F 0502/18 02:00 98.2 F 109 H 18 121/77 100 05/02/18 01:45 118 H 15 121/72 100 0502/18 01:30 110 H 17 119/68 100 05/02/18 01:15 107 H 17 123/67 100 /02/18 01:00 105 H 18 116/58 100 05/02/18 00:56 98.4 F 050218 00:45 119 H 16 106/59 100 0502/18 00:30 121 H 17 113/56 100 11/08/17 00:15 110 H 18 115/48 100 11/08/17 00:02 98.1 F 11/08/17 00:01 114 H 16 131/50 100 11/07/17 23:50 98.5 F 11/07/17 23:45 116 H 16 103/56 100 11/07/17 23:37 98.2 F 11/07/17 23:30 114 H 14 99/49 100 11/07/17 23:28 98.4 F 11/07/17 23:15 117 H 17 117/60 100 11/07/17 23:01 135 H 17 143/75 100 11/07/17 22:45 120 H 18 120/75 100 11/07/17 22:31 121 H 14 116/76 100 11/07/17 22:15 119 H 21 102/52 100 11/07/17 22:00 113 H 21 94/47 100 11/07/17 21:45 131 H 21 92/40 99 11/07/17 21:39 131 H 20 73/36 86 11/07/17 21:31 133 H 28 H 88/40 100 11/07/17 21:15 131 H 22 88/40 100 11/07/17 21:11 128 H 22 74/33 100 11/07/17 21:00 127 H 19 69/40 100 11/07/17 20:51 124 H 19 74/33 100 11/07/17 20:41 123 H 20 77/40 100 11/07/17 20:30 122 H 20 77/40 98 11/07/17 20:21 123 H 20 73/42 97 11/07/17 20:11 121 H 20 132/81 100 11/07/17 20:09 97.3 F L 11/07/17 20:01 149 H 17 120/57 100 11/07/17 20:00 152 H 148/116 100 11/07/17 19:51 158 H 26 H 132/81 100 11/07/17 19:41 153 H 19 118/80 100 11/07/17 19:31 154 H 26 H 118/80 100 11/07/17 19:21 157 H 25 H 114/99 11/07/17 19:11 155 H 25 H 120/91 100 11/07/17 19:00 143 H 22 114/47 100 11/07/17 18:50 157 H 24 138/58 100 11/07/17 18:40 154 H 21 71/33 100 11/07/17 18:38 71/33 100 Intake and Output 11/08/17 11/08/17 11/08/17 07:59 15:59 23:59 Intake Total 1050 526.486 Output Total 335 220 Balance 715 306.486 Intake: IV 500 104.486 LEVOPHED DRIP 4 MG/NS 250 500 ML 4 mg In 250 ml @ 2 MCG/MIN 7.5 mls/hr IV TITR [facility]Y Rx#:[id number] ZOSYN/NS 4.5GM/100ML 4.5 100 gm In 100 ml @ 200 mls/hr IV Q8HR [facility] Rx#: [id number] fentaNYL DRIP Premix 2, 0 4.486 000 mcg In 100 ml @ 1 MCG /KG/HR 3.243 mls/hr IV TITR GERRY Rx#:[id number] Blood Product 550 422 Cryoprecipitate Pooled 50 Unit [id number] Fresh Frozen Plasma 0 208 Thawed Unit [id number] Fresh Frozen Plasma 214 Thawed Unit [id number] Leukoreduced Red Blood 250 Cells Unit [id number] Leukoreduced Red Blood 250 Cells Unit [id number] Output: Drainage 160 50 Abdomen 160 50 Urine 175 170 Indwelling Catheter 175 170 Other: Total, Output Amount 335 80 Voiding Method Indwelling Catheter Indwelling Catheter Weight 64.864 kg Patient Weight 11/08/17 23:59 Weight 64.864 kg - Exam Breasts: Present: normal Cardiovascular: Present: Regular rate, Normal S1 Lungs: Present: Clear to auscultation, Normal air movement Abdomen: Present: normal appearance, soft, normal bowel sounds. Absent: distention, tenderness, guarding Vulva: both: normal Uterus: Present: firm Extremities: Present: normal Deep Tendon Reflex Grade: Normal +2 Incision: Present: normal - Labs Labs: Abnormal lab results 11/06/17 11/07/17 11/07/17 Range/Units 16:00 15:30 18:35 WBC (4.5-11.0) K/mm3 RBC (3.65-5.03) M/mm3 Hgb (10.1-14.3) gm/dl Hct (30.3-42.9) % Plt Count (140-440) K/mm3 Lymph % (Auto) (13.4-35.0) % [place] % (Auto) (0.0-7.3) % [place] # (0.0-0.8) K/mm3 Seg Neutrophils % (40.0-70.0) % Seg Neuts % (Manual) 95.5 H (40.0-70.0) % Lymphocytes % (Manual) 1.5 L (13.4-35.0) % Seg Neutrophils # (1.8-7.7) K/mm3 Seg Neutrophils # Man 20.7 H (1.8-7.7) K/mm3 Lymphocytes # (Manual) 0.3 L (1.2-5.4) K/mm3 PT (12.2-14.9) Sec. INR (0.87-1.13) APTT (24.2-36.6) Sec. POC ABG pCO2 (35-45) POC ABG pO2 (80-105) Sodium (137-145) mmol/L Potassium (3.6-5.0) mmol/L Chloride (98-107) mmol/L Carbon Dioxide (22-30) mmol/L BUN (7-17) mg/dL Creatinine (0.7-1.2) mg/dL Glucose (65-100) mg/dL Lactic Acid (0.7-2.0) mmol/L Calcium (8.4-10.2) mg/dL AST (5-40) units/L Lactate Dehydrogenase (91-180) units/L Total Protein (6.3-8.2) g/dL Albumin (3.9-5) g/dL Crossmatch See Detail See Detail 11/07/17 11/07/17 11/07/17 Range/Units 19:23 19:23 19:23 WBC 23.9 H (4.5-11.0) K/mm3 RBC 2.10 L (3.65-5.03) M/mm3 Hgb 6.5 L (10.1-14.3) gm/dl Hct 19.9 L* (30.3-42.9) % Plt Count 112 L (140-440) K/mm3 Lymph % (Auto) 6.8 L (13.4-35.0) % [place] % (Auto) 10.3 H (0.0-7.3) % [place] # 2.5 H (0.0-0.8) K/mm3 Seg Neutrophils % 82.0 H (40.0-70.0) % Seg Neuts % (Manual) 81.5 H (40.0-70.0) % Lymphocytes % (Manual) 2.5 L (13.4-35.0) % Seg Neutrophils # 19.6 H (1.8-7.7) K/mm3 Seg Neutrophils # Man 19.5 H (1.8-7.7) K/mm3 Lymphocytes # (Manual) 0.6 L (1.2-5.4) K/mm3 PT 22.8 H (12.2-14.9) Sec. INR 1.88 H (0.87-1.13) APTT 52.9 H (24.2-36.6) Sec. POC ABG pCO2 (35-45) POC ABG pO2 (80-105) Sodium (137-145) mmol/L Potassium (3.6-5.0) mmol/L Chloride 109.3 H (98-107) mmol/L Carbon Dioxide 16 L (22-30) mmol/L BUN (7-17) mg/dL Creatinine (0.7-1.2) mg/dL Glucose 151 H (65-100) mg/dL Lactic Acid (0.7-2.0) mmol/L Calcium 5.4 L* D (8.4-10.2) mg/dL AST (5-40) units/L Lactate Dehydrogenase (91-180) units/L Total Protein (6.3-8.2) g/dL Albumin (3.9-5) g/dL Crossmatch 11/07/17 11/07/17 11/08/17 Range/Units 19:23 19:23 05:39 WBC (4.5-11.0) K/mm3 RBC (3.65-5.03) M/mm3 Hgb (10.1-14.3) gm/dl Hct (30.3-42.9) % Plt Count (140-440) K/mm3 Lymph % (Auto) (13.4-35.0) % [place] % (Auto) (0.0-7.3) % [place] # (0.0-0.8) K/mm3 Seg Neutrophils % (40.0-70.0) % Seg Neuts % (Manual) (40.0-70.0) % Lymphocytes % (Manual) (13.4-35.0) % Seg Neutrophils # (1.8-7.7) K/mm3 Seg Neutrophils # Man (1.8-7.7) K/mm3 Lymphocytes # (Manual) (1.2-5.4) K/mm3 PT (12.2-14.9) Sec. INR (0.87-1.13) APTT (24.2-36.6) Sec. POC ABG pCO2 23.4 L (35-45) POC ABG pO2 246 H (80-105) Sodium (137-145) mmol/L Potassium (3.6-5.0) mmol/L Chloride (98-107) mmol/L Carbon Dioxide (22-30) mmol/L BUN (7-17) mg/dL Creatinine (0.7-1.2) mg/dL Glucose (65-100) mg/dL Lactic Acid 7.40 H* (0.7-2.0) mmol/L Calcium (8.4-10.2) mg/dL AST (5-40) units/L Lactate Dehydrogenase 235 H (91-180) units/L Total Protein (6.3-8.2) g/dL Albumin (3.9-5) g/dL Crossmatch 11/08/17 11/08/17 11/08/17 Range/Units 06:30 06:30 12:01 WBC 24.0 H (4.5-11.0) K/mm3 RBC 2.27 L (3.65-5.03) M/mm3 Hgb 7.0 L (10.1-14.3) gm/dl Hct 21.2 L (30.3-42.9) % Plt Count 73 L (140-440) K/mm3 Lymph % (Auto) (13.4-35.0) % [place] % (Auto) (0.0-7.3) % [place] # (0.0-0.8) K/mm3 Seg Neutrophils % (40.0-70.0) % Seg Neuts % (Manual) (40.0-70.0) % Lymphocytes % (Manual) (13.4-35.0) % Seg Neutrophils # (1.8-7.7) K/mm3 Seg Neutrophils # Man (1.8-7.7) K/mm3 Lymphocytes # (Manual) (1.2-5.4) K/mm3 PT (12.2-14.9) Sec. INR (0.87-1.13) APTT (24.2-36.6) Sec. POC ABG pCO2 (35-45) POC ABG pO2 (80-105) Sodium 146 H (137-145) mmol/L Potassium 7.0 H* D (3.6-5.0) mmol/L Chloride 113.5 H 115.2 H (98-107) mmol/L Carbon Dioxide 14 L 16 L (22-30) mmol/L BUN 24 H 27 H (7-17) mg/dL Creatinine 1.9 H D 2.2 H (0.7-1.2) mg/dL Glucose 139 H 101 H (65-100) mg/dL Lactic Acid (0.7-2.0) mmol/L Calcium 5.6 L* 6.4 L (8.4-10.2) mg/dL AST 88 H (5-40) units/L Lactate Dehydrogenase (91-180) units/L Total Protein 3.1 L (6.3-8.2) g/dL Albumin 1.8 L (3.9-5) g/dL Crossmatch 11/08/17 Range/Units 12:01 WBC (4.5-11.0) K/mm3 RBC (3.65-5.03) M/mm3 Hgb (10.1-14.3) gm/dl Hct (30.3-42.9) % Plt Count (140-440) K/mm3 Lymph % (Auto) (13.4-35.0) % [place] % (Auto) (0.0-7.3) % [place] # (0.0-0.8) K/mm3 Seg Neutrophils % (40.0-70.0) % Seg Neuts % (Manual) (40.0-70.0) % Lymphocytes % (Manual) (13.4-35.0) % Seg Neutrophils # (1.8-7.7) K/mm3 Seg Neutrophils # Man (1.8-7.7) K/mm3 Lymphocytes # (Manual) (1.2-5.4) K/mm3 PT 18.0 H (12.2-14.9) Sec. INR 1.40 H (0.87-1.13) APTT 37.7 H (24.2-36.6) Sec. POC ABG pCO2 (35-45) POC ABG pO2 (80-105) Sodium (137-145) mmol/L Potassium (3.6-5.0) mmol/L Chloride (98-107) mmol/L Carbon Dioxide (22-30) mmol/L BUN (7-17) mg/dL Creatinine (0.7-1.2) mg/dL Glucose (65-100) mg/dL Lactic Acid (0.7-2.0) mmol/L Calcium (8.4-10.2) mg/dL AST (5-40) units/L Lactate Dehydrogenase (91-180) units/L Total Protein (6.3-8.2) g/dL Albumin (3.9-5) g/dL Crossmatch
[2017-11-08] MEDS ORDERED: M-M-R II VACCINE SUB-Q ONE (19:05)
--- NOTE | 2017-11-08 19:09 | Cat Scan Report ---
FINAL REPORT PROCEDURE: CT head without contrast. TECHNIQUE: Computerized tomography of the head was performed without contrast material. HISTORY: Possible intracranial hemorrhage. COMPARISON: No prior studies are available for comparison. FINDINGS: The ventricles are normal in size. The garnett matter and white matter appear normal. There are no mass lesions. There is no intracranial hemorrhage. The calvarium appears intact. The mastoid air cells and visualized paranasal sinuses are well aerated. IMPRESSION: Normal study.
[2017-11-08 19:46] LABS: Hematocrit TNR % (30.3-42.9); Hemoglobin TNR gm/dl (10.1-14.3); Mean Corpuscular HGB Conc TNR % (30-34); Mean Corpuscular Hemoglobin TNR pg (28-32); Mean Corpuscular Volume TNR fl (79-97); Platelet Count TNR K/mm3 (140-440); Red Blood Count TNR M/mm3 (3.65-5.03); Red Cell Distribution Width TNR % (13.2-15.2)
[2017-11-08 21:47] LABS: Mean Corpuscular HGB Conc 33 % (30-34); Mean Corpuscular Hemoglobin 31 pg (28-32); Mean Corpuscular Volume 92 fl (79-97); Red Blood Count 1.26 M/mm3 (3.65-5.03); Red Cell Distribution Width 14.7 % (13.2-15.2)
[2017-11-08 21:51] LABS: Hematocrit 11.6 % (30.3-42.9); Hemoglobin 3.9 gm/dl (10.1-14.3); Platelet Count 64 K/mm3 (140-440)
[2017-11-08] MEDS ORDERED: NACL 0.9% 500 ML 500 ML IV ONE ×2 (22:44→22:48)
[2017-11-08] MEDS ORDERED: CALCIUM GLUCONATE 1,000 MG in NACL 0.9% 100 ML IV ONE (23:11)
[2017-11-09] MEDS: SUBLIMAZE IV PRN ×7 (01:36→22:12)
--- NOTE | 2017-11-09 04:05 | XRay Report ---
FINAL REPORT EXAM: XR CHEST 1V AP HISTORY: Follow-up respiratory failure. TECHNIQUE: A single frontal portable radiograph of the chest was obtained. Comparison is made with prior study 11/07/2017. FINDINGS: The cardiac silhouette and mediastinum are probably unchanged in appearance, accounting for patient rotation and semi-recumbent positioning. The endotracheal tube seen on prior exam has been removed in the interval. There are new moderate left perihilar and left basilar infiltrates, new compared to prior exam. There is a small left pleural effusion. Minimal patchy opacities are seen at the right lung base, which may represent additional infiltrate and/or atelectasis. There is no pneumothorax. There is a slight thoracic levoscoliosis. IMPRESSION: 1. New left perihilar and left basilar infiltrates. New small left pleural effusion. 2. Minimal patchy opacities at the right lung base, representing atelectasis and/or additional infiltrate.
[2017-11-09] MEDS: FLAGYL 500 MG/100 ML 500 MG/100 ML BAG IV SCH ×2 (05:04→12:30)
[2017-11-09] MEDS: ZOSYN/NS 4.5GM/100ML 4.5 GM/100 ML VIAL IV SCH (06:17)
--- NOTE | 2017-11-09 08:57 | Progress Note ---
Assessment and Plan A/P PPD2 POD 2 /supracervical hysterectomy Post operative hypoxemic resppiratory failure on MVS -Hemorrhagic shock -Massive blood transfusion -Metabolic acidosis -Acute kidney failure secondary to ATN -Sepsis -post hysterectomy -Post hemorrhage -DIC -Hyperkalemia P: Continue supportive care CTA angiogram per Dr Vickers Consult Hematology All consults much appreciated. Subjective - Subjective Date of service: 11/09/17 Principal diagnosis: Hemrrohagic shock, DIC, Septic shock, DIC, post hemorrhage Interval history: Pt feels well this morning since being extubated. She reports some incisional pain. She has had two bowel movements yesterday. Patient reports: appetite normal, pain well controlled, bowel movement, no voiding normally (brewer in place ) : in NICU Objective - Vital Signs Latest vital signs: Vital Signs Temp Pulse Resp BP Pulse Ox 11/09/17 08:15 102 H 21 108/67 97 11/09/17 08:00 98.0 F 104 H 23 108/65 97 11/09/17 07:46 109 H 16 97/63 96 11/09/17 07:44 95 11/09/17 07:30 98.4 F 105 H 20 97/63 97 11/09/17 07:15 113 H 21 107/64 95 11/09/17 07:00 110 H 21 106/59 95 11/09/17 06:45 115 H 17 104/61 94 11/09/17 06:30 117 H 17 98/60 96 11/09/17 06:15 117 H 18 102/61 94 11/09/17 06:09 98.7 F 11/09/17 06:00 117 H 19 107/56 96 11/09/17 05:45 116 H 19 97/55 96 11/09/17 05:39 98.7 F 11/09/17 05:30 116 H 17 101/58 94 11/09/17 05:16 127 H 14 100/57 99 11/09/17 05:00 98.5 F 118 H 16 100/57 99 11/09/17 04:45 120 H 18 102/59 100 11/09/17 04:30 99 F 122 H 18 100/56 99 11/09/17 04:15 122 H 19 102/58 98 11/09/17 04:00 122 H 18 99/60 93 11/09/17 03:45 132 H 14 116/63 94 [id number] 03:30 130 H 21 107/62 95 0518 03:15 130 H 16 109/54 94 11/09/17 03:10 97.7 F 11/09/17 03:00 123 H 16 100/61 92 18 02:45 123 H 18 98/58 93 11/09/17 02:30 126 H 16 102/59 98 11/09/17 02:20 98.5 F 11/09/17 02:15 126 H 21 97/52 97 11/09/17 02:00 142 H 30 H 85/61 93 11/09/17 01:45 134 H 22 85/61 93 11/09/17 01:30 137 H 18 92/51 98 11/09/17 01:15 140 H 22 101/61 98 11/09/17 01:00 137 H 21 100/58 99 11/09/17 00:53 100.4 F H 11/09/17 00:45 140 H 22 99/55 99 03 00:36 19 99 11/09/17 00:30 131 H 19 92/49 99 03/18 00:23 100.2 F H 11/09/17 00:15 128 H 19 92/46 91 11/09/17 00:08 99.8 F H 11/09/17 00:06 131 H 20 95/48 90 11/09/17 00:00 128 H 19 95/48 92 11/08/17 23:46 100 F H 11/08/17 23:45 127 H 18 94/48 95 02 23:30 136 H 19 101/57 98 0218 23:15 137 H 19 105/56 98 0502/18 23:00 136 H 17 104/63 98 0218 22:46 140 H 19 104/63 100 18 22:30 133 H 19 107/57 100 050218 22:15 135 H 18 98/58 100 18 22:00 134 H 19 105/55 100 0502/18 21:45 137 H 19 105/55 100 050218 21:30 133 H 20 97/54 100 02/18 21:15 140 H 17 105/55 100 11/08/17 21:00 133 H 16 96/54 100 11/08/17 20:45 147 H 26 H 95/59 100 11/08/17 20:30 135 H 18 100/53 100 11/08/17 20:15 133 H 19 95/51 100 11/08/17 20:00 131 H 22 101/46 100 11/08/17 19:45 135 H 20 98/52 100 11/08/17 19:37 99.8 F H 11/08/17 19:30 140 H 20 104/61 100 11/08/17 19:16 148 H 26 H 104/64 95 11/08/17 19:04 20 11/08/17 19:00 134 H 20 103/53 97 11/08/17 18:45 144 H 25 H 102/45 94 11/08/17 18:36 134 H 22 97/47 96 11/08/17 17:45 144 H 24 117/64 98 11/08/17 17:30 145 H 28 H 110/56 97 11/08/17 17:16 150 H 27 H 110/56 96 11/08/17 17:00 131 H 22 106/61 99 11/08/17 16:45 131 H 19 123/57 97 11/08/17 16:36 17 11/08/17 16:30 133 H 18 114/58 99 11/08/17 16:15 128 H 19 117/56 100 11/08/17 16:00 98.7 F 125 H 21 109/53 100 11/08/17 15:45 123 H 19 101/53 100 11/08/17 15:30 125 H 19 103/53 100 18 15:15 133 H 18 108/61 99 11/08/17 15:00 130 H 17 112/61 100 18 14:45 128 H 20 115/50 100 18 14:30 128 H 16 109/52 100 11/08/17 14:15 127 H 17 104/51 100 18 14:00 128 H 18 109/57 100 11/08/17 13:45 133 H 19 118/58 100 11/08/17 13:30 138 H 20 122/69 100 11/08/17 13:15 133 H 13 115/72 100 11/08/17 13:00 133 H 19 122/69 100 11/08/17 12:45 137 H 18 122/69 100 11/08/17 12:30 140 H 20 125/78 100 11/08/17 12:23 15 11/08/17 12:16 155 H 21 124/69 100 11/08/17 12:01 100.9 F H 11/08/17 12:00 143 H 14 124/69 100 11/08/17 11:53 20 11/08/17 11:46 155 H 25 H 129/75 100 11/08/17 11:31 100 11/08/17 11:30 141 H 17 129/75 100 11/08/17 11:15 114 H 13 119/66 100 11/08/17 11:00 118 H 12 123/62 100 11/08/17 10:45 134 H 13 128/68 100 11/08/17 10:30 133 H 14 124/64 100 11/08/17 10:15 152 H 16 103/72 100 11/08/17 10:00 115 H 12 108/67 100 11/08/17 09:59 98.4 F 113 H 13 108/67 100 11/08/17 09:45 115 H 12 109/60 100 11/08/17 09:30 116 H 10 L 120/68 100 11/08/17 09:29 97.9 F 123 H 13 118/62 100 11/08/17 09:15 109 H 10 L 118/62 100 11/08/17 09:14 98.1 F 114 H 11 L 116/68 100 11/08/17 09:00 114 H 12 116/68 100 Intake and Output 11/08/17 11/09/17 11/09/17 22:59 06:59 14:59 Intake Total 1022 840 250 Output Total 530 100 Balance 492 740 250 Intake: IV 300 100 FLAGYL 500 MG/100 ML 500 100 100 mg In 100 ml @ 100 mls/hr IV Q8H GERRY Rx#:[id number] ZOSYN/NS 4.5GM/100ML 4.5 200 gm In 100 ml @ 200 mls/hr IV Q8HR GERRY Rx#: [id number] Oral 482 240 Intake, Free Water 240 Blood Product 500 250 Leukoreduced Red Blood 250 Cells Unit [id number] Leukoreduced Red Blood 250 Cells Unit [id number] Leukoreduced Red Blood 0 250 Cells Unit [id number] Output: Drainage 100 50 Abdomen 100 50 Urine 430 50 Indwelling Catheter 330 50 Uretheral (Brewer) 100 Other: Total, Intake Amount 482 240 Total, Output Amount 110 0 Voiding Method Indwelling Catheter # Bowel Movements 0 - Exam Breasts: Present: deferred Cardiovascular: Present: Regular rate Lungs: Present: Clear to auscultation Abdomen: Present: soft, normal bowel sounds, other (SCDs in place ) Extremities: Present: normal (SCDs ) Incision: Present: dressed - Labs Labs: Abnormal lab results 11/06/17 11/07/17 11/08/17 Range/Units 16:00 18:35 12:01 WBC (4.5-11.0) K/mm3 RBC (3.65-5.03) M/mm3 Hgb (10.1-14.3) gm/dl Hct (30.3-42.9) % Plt Count (140-440) K/mm3 PT (12.2-14.9) Sec. INR (0.87-1.13) APTT (24.2-36.6) Sec. Sodium 146 H (137-145) mmol/L Chloride 115.2 H (98-107) mmol/L Carbon Dioxide 16 L (22-30) mmol/L BUN 27 H (7-17) mg/dL Creatinine 2.2 H (0.7-1.2) mg/dL Glucose 101 H (65-100) mg/dL Calcium 6.4 L (8.4-10.2) mg/dL AST 88 H (5-40) units/L Total Protein 3.1 L (6.3-8.2) g/dL Albumin 1.8 L (3.9-5) g/dL Crossmatch See Detail See Detail 11/08/17 11/08/17 Range/Units 12:01 21:09 WBC 15.9 H (4.5-11.0) K/mm3 RBC 1.26 L (3.65-5.03) M/mm3 Hgb 3.9 L* D (10.1-14.3) gm/dl Hct 11.6 L* D (30.3-42.9) % Plt Count 64 L (140-440) K/mm3 PT 18.0 H (12.2-14.9) Sec. INR 1.40 H (0.87-1.13) APTT 37.7 H (24.2-36.6) Sec. Sodium (137-145) mmol/L Chloride (98-107) mmol/L Carbon Dioxide (22-30) mmol/L BUN (7-17) mg/dL Creatinine (0.7-1.2) mg/dL Glucose (65-100) mg/dL Calcium (8.4-10.2) mg/dL AST (5-40) units/L Total Protein (6.3-8.2) g/dL Albumin (3.9-5) g/dL Crossmatch
[2017-11-09 09:49] LABS: Basophils % (Auto) 0.1 % (0.0-1.8); Eosinophils % (Auto) 0.1 % (0.0-4.3); Hematocrit 20.3 % (30.3-42.9); Hemoglobin 6.8 gm/dl (10.1-14.3); Lymphocytes # (Auto) 1.2 K/mm3 (1.2-5.4); Lymphocytes % (Auto) 7.7 % (13.4-35.0); Mean Corpuscular HGB Conc 33 % (30-34); Mean Corpuscular Hemoglobin 30 pg (28-32); Mean Corpuscular Volume 91 fl (79-97); Monocytes % (Auto) 6.6 % (0.0-7.3); Red Blood Count 2.24 M/mm3 (3.65-5.03); Red Cell Distribution Width 14.4 % (13.2-15.2)
--- NOTE | 2017-11-09 09:55 | Progress Note ---
Assessment and Plan Acute Hypoxemic Respiratory Failure s/p MVS < 96 hours Aspiration Pneumonia (HCAP) vs Pulmonary Edema Hemorrhagic shock Post hemorrhage - repeat PT/INR and fibrinogen then address - transfuse 2 units PRBC's for Hb of 6.8 due to persistent bleeding - NIPPV for increased work of breathing - reduce volume resuscitation re: developing infiltrates - get 2D ECHO re; infiltrates (? chris-opartum CMOP) - Massive transfusion protocol followed (repleted calcium, monitor for hyperkalemia) - continue brewer catheter and address daily - place PICC line vs 2 large bore peripherals and pull femoral CVL - vasopressors for MAP < 60 mmHg - consider IR for possible pelvic artery embolization if bleeding persist's s/p hysterectomy - continue to watch closely in the ICU ..... 30' CCT Subjective Date of service: 11/09/17 Principal diagnosis: Hemrrohagic shock; DIC; post hemorrhage Interval history: Patient is seen today for: Hemrrohagic shock; DIC; post hemorrhage Seen and examined at bedside; 24hour events reviewed; nursing and respiratory care staff consulted; no adverse overnight events reported to me; doing better; more hemodynamically stable; A&C X 3; family visiting; denies acute chest pains or increased SOB; still with some bleeding from ADRIEN drains Objective Vital Signs - 12hr 11/08/17 11/08/17 11/08/17 22:00 22:15 22:30 Temperature Pulse Rate 134 H 135 H 133 H Respiratory 19 18 19 Rate Blood Pressure 105/55 98/58 107/57 O2 Sat by Pulse 100 100 100 Oximetry 11/08/17 11/08/17 11/08/17 22:46 23:00 23:15 Temperature Pulse Rate 140 H 136 H 137 H Respiratory 19 17 19 Rate Blood Pressure 104/63 104/63 105/56 O2 Sat by Pulse 100 98 98 Oximetry 11/08/17 11/08/17 11/08/17 23:30 23:45 23:46 Temperature 100 F H Pulse Rate 136 H 127 H Respiratory 19 18 Rate Blood Pressure 101/57 94/48 O2 Sat by Pulse 98 95 Oximetry 11/09/17 11/09/17 11/09/17 00:00 00:06 00:08 Temperature 99.8 F H Pulse Rate 128 H 131 H Respiratory 22 20 Rate Blood Pressure 95/48 95/48 O2 Sat by Pulse 92 90 Oximetry 11/09/17 11/09/17 11/09/17 00:15 00:23 00:30 Temperature 100.2 F H Pulse Rate 128 H 131 H Respiratory 19 19 Rate Blood Pressure 92/46 92/49 O2 Sat by Pulse 91 99 Oximetry 11/09/17 11/09/17 11/09/17 00:36 00:45 00:53 Temperature 100.4 F H Pulse Rate 140 H Respiratory 19 22 Rate Blood Pressure 99/55 O2 Sat by Pulse 99 99 Oximetry 11/09/17 11/09/17 11/09/17 01:00 01:15 01:30 Temperature Pulse Rate 137 H 140 H 137 H Respiratory 21 22 18 Rate Blood Pressure 100/58 101/61 92/51 O2 Sat by Pulse 99 98 98 Oximetry 11/09/17 11/09/17 11/09/17 01:45 02:00 02:15 Temperature Pulse Rate 134 H 142 H 126 H Respiratory 22 30 H 21 Rate Blood Pressure 85/61 85/61 97/52 O2 Sat by Pulse 93 93 97 Oximetry 11/09/17 11/09/17 11/09/17 02:20 02:30 02:45 Temperature 98.5 F Pulse Rate 126 H 123 H Respiratory 16 18 Rate Blood Pressure 102/59 98/58 O2 Sat by Pulse 98 93 Oximetry 11/09/17 11/09/17 11/09/17 03:00 03:10 03:15 Temperature 97.7 F Pulse Rate 123 H 130 H Respiratory 16 16 Rate Blood Pressure 100/61 109/54 O2 Sat by Pulse 92 94 Oximetry 11/09/17 11/09/17 11/09/17 03:30 03:45 04:00 Temperature Pulse Rate 130 H 132 H 122 H Respiratory 21 14 22 Rate Blood Pressure 107/62 116/63 99/60 O2 Sat by Pulse 95 94 93 Oximetry 11/09/17 11/09/17 11/09/17 04:15 04:30 04:45 Temperature 99 F Pulse Rate 122 H 122 H 120 H Respiratory 19 18 18 Rate Blood Pressure 102/58 100/56 102/59 O2 Sat by Pulse 98 99 100 Oximetry 11/09/17 11/09/17 11/09/17 05:00 05:16 05:30 Temperature 98.5 F Pulse Rate 118 H 127 H 116 H Respiratory 16 14 17 Rate Blood Pressure 100/57 100/57 101/58 O2 Sat by Pulse 99 99 94 Oximetry 11/09/17 11/09/17 11/09/17 05:39 05:45 06:00 Temperature 98.7 F Pulse Rate 116 H 117 H Respiratory 19 19 Rate Blood Pressure 97/55 107/56 O2 Sat by Pulse 96 96 Oximetry 11/09/17 11/09/17 11/09/17 06:09 06:15 06:30 Temperature 98.7 F Pulse Rate 117 H 117 H Respiratory 18 17 Rate Blood Pressure 102/61 98/60 O2 Sat by Pulse 94 96 Oximetry 11/09/17 11/09/17 11/09/17 06:45 07:00 07:15 Temperature Pulse Rate 115 H 110 H 113 H Respiratory 17 21 21 Rate Blood Pressure 104/61 106/59 107/64 O2 Sat by Pulse 94 95 95 Oximetry 11/09/17 11/09/17 11/09/17 07:30 07:44 07:46 Temperature 98.4 F Pulse Rate 105 H 109 H Respiratory 20 16 Rate Blood Pressure 97/63 97/63 O2 Sat by Pulse 97 95 96 Oximetry 11/09/17 11/09/17 11/09/17 08:00 08:15 08:30 Temperature 98.0 F Pulse Rate 104 H 102 H 113 H Respiratory 23 21 20 Rate Blood Pressure 108/65 108/67 108/67 O2 Sat by Pulse 97 97 96 Oximetry 11/09/17 08:46 Temperature Pulse Rate 112 H Respiratory 17 Rate Blood Pressure 108/67 O2 Sat by Pulse 98 Oximetry Constitutional: no acute distress, alert Eyes: non-icteric ENT: oropharynx moist, other (extubated) Neck: supple, no lymphadenopathy, no JVD, other (no thyromegaly) Effort: mildly labored Ascultation: Bilateral: clear, diminished breath sounds Percussion: Bilateral: not dull Cardiovascular: regular rate and rhythm, other (no murmurs, no gallops or rubs) Gastrointestinal: normoactive bowel sounds, soft, non-tender, tender, other (ADRIEN drain in place, clean dry abdominal dressing) Integumentary: normal Extremities: no cyanosis, no edema, pulses normal, no ischemia or petechiae Neurologic: normal mental status, non-focal exam, pupils equal and round, motor strength normal and Psychiatric: mood appropriate, affect normal CBC and BMP: 11/10/17 05:23 11/10/17 05:23 ABG, PT/INR, D-dimer: ABG POC ABG pH 7.372 (7.35-7.45) 11/08/17 05:39 POC ABG pCO2 23.4 (35-45) L 11/08/17 05:39 POC ABG pO2 246 (80-105) H 11/08/17 05:39 POC ABG HCO3 13.6 11/08/17 05:39 POC ABG Total CO2 14 11/08/17 05:39 POC ABG O2 Sat 100 11/08/17 05:39 PT/INR, D-dimer PT 18.0 Sec. (12.2-14.9) H 11/08/17 12:01 INR 1.40 (0.87-1.13) H 11/08/17 12:01 D-Dimer > 04084 ng/mlDDU (0-234) H 11/07/17 15:30 Abnormal lab findings: Abnormal Labs 11/06/17 11/06/17 11/07/17 16:00 16:00 14:27 WBC RBC Hgb Hct Plt Count Lymph % (Auto) [place] % (Auto) [place] # Seg Neutrophils % Seg Neuts % (Manual) Lymphocytes % (Manual) Seg Neutrophils # Seg Neutrophils # Man Lymphocytes # (Manual) PT INR APTT Fibrinogen D-Dimer POC ABG pH 7.067 L POC ABG pCO2 70.3 H POC ABG pO2 24 L Sodium Potassium Chloride Carbon Dioxide BUN Creatinine 0.4 L Glucose Lactic Acid Calcium Total Bilirubin AST ALT Lactate Dehydrogenase 192 H Total Protein Albumin Crossmatch See Detail 11/07/17 11/07/17 11/07/17 15:30 15:30 15:30 WBC 21.7 H RBC 1.96 L Hgb 6.1 L D Hct 18.0 L* D Plt Count 125 L Lymph % (Auto) [place] % (Auto) [place] # Seg Neutrophils % Seg Neuts % (Manual) 95.5 H Lymphocytes % (Manual) 1.5 L Seg Neutrophils # Seg Neutrophils # Man 20.7 H Lymphocytes # (Manual) 0.3 L PT 65.9 H INR 7.01 H* APTT 126.6 H* Fibrinogen > 1500 H D-Dimer > 24732 H POC ABG pH POC ABG pCO2 POC ABG pO2 Sodium Potassium Chloride 107.1 H Carbon Dioxide 18 L BUN Creatinine 0.6 L Glucose 106 H Lactic Acid Calcium 6.5 L Total Bilirubin 1.50 H AST ALT 6 L Lactate Dehydrogenase Total Protein 3.2 L Albumin 1.9 L Crossmatch 11/07/17 11/07/17 11/07/17 18:35 19:23 19:23 WBC 23.9 H RBC 2.10 L Hgb 6.5 L Hct 19.9 L* Plt Count 112 L Lymph % (Auto) 6.8 L [place] % (Auto) 10.3 H [place] # 2.5 H Seg Neutrophils % 82.0 H Seg Neuts % (Manual) 81.5 H Lymphocytes % (Manual) 2.5 L Seg Neutrophils # 19.6 H Seg Neutrophils # Man 19.5 H Lymphocytes # (Manual) 0.6 L PT 22.8 H INR 1.88 H APTT 52.9 H Fibrinogen D-Dimer POC ABG pH POC ABG pCO2 POC ABG pO2 Sodium Potassium Chloride Carbon Dioxide BUN Creatinine Glucose Lactic Acid Calcium Total Bilirubin AST ALT Lactate Dehydrogenase Total Protein Albumin Crossmatch See Detail 11/07/17 11/07/17 11/07/17 19:23 19:23 19:23 WBC RBC Hgb Hct Plt Count Lymph % (Auto) [place] % (Auto) [place] # Seg Neutrophils % Seg Neuts % (Manual) Lymphocytes % (Manual) Seg Neutrophils # Seg Neutrophils # Man Lymphocytes # (Manual) PT INR APTT Fibrinogen D-Dimer POC ABG pH POC ABG pCO2 POC ABG pO2 Sodium Potassium Chloride 109.3 H Carbon Dioxide 16 L BUN Creatinine Glucose 151 H Lactic Acid 7.40 H* Calcium 5.4 L* D Total Bilirubin AST ALT Lactate Dehydrogenase 235 H Total Protein Albumin Crossmatch 11/08/17 11/08/17 11/08/17 05:39 06:30 06:30 WBC 24.0 H RBC 2.27 L Hgb 7.0 L Hct 21.2 L Plt Count 73 L Lymph % (Auto) [place] % (Auto) [place] # Seg Neutrophils % Seg Neuts % (Manual) Lymphocytes % (Manual) Seg Neutrophils # Seg Neutrophils # Man Lymphocytes # (Manual) PT INR APTT Fibrinogen D-Dimer POC ABG pH POC ABG pCO2 23.4 L POC ABG pO2 246 H Sodium Potassium 7.0 H* D Chloride 113.5 H Carbon Dioxide 14 L BUN 24 H Creatinine 1.9 H D Glucose 139 H Lactic Acid Calcium 5.6 L* Total Bilirubin AST ALT Lactate Dehydrogenase Total Protein Albumin Crossmatch 11/08/17 11/08/17 11/08/17 12:01 12:01 21:09 WBC 15.9 H RBC 1.26 L Hgb 3.9 L* D Hct 11.6 L* D Plt Count 64 L Lymph % (Auto) [place] % (Auto) [place] # Seg Neutrophils % Seg Neuts % (Manual) Lymphocytes % (Manual) Seg Neutrophils # Seg Neutrophils # Man Lymphocytes # (Manual) PT 18.0 H INR 1.40 H APTT 37.7 H Fibrinogen D-Dimer POC ABG pH POC ABG pCO2 POC ABG pO2 Sodium 146 H Potassium Chloride 115.2 H Carbon Dioxide 16 L BUN 27 H Creatinine 2.2 H Glucose 101 H Lactic Acid Calcium 6.4 L Total Bilirubin AST 88 H ALT Lactate Dehydrogenase Total Protein 3.1 L Albumin 1.8 L Crossmatch Chest x-ray: image reviewed (developing chris-hilar infiltrates and small left effusion) Allied health notes reviewed: nursing
[2017-11-09 10:03] LABS: Platelet Count 57 K/mm3 (140-440)
[2017-11-09 10:06] LABS: Calcium 6.2 mg/dL (8.4-10.2)
[2017-11-09] MEDS: Centrum Liq PO SCH (11:21)
[2017-11-09] MEDS: PEPCID IV SCH (11:21)
[2017-11-09 11:26] LABS: INR 1.22 (0.87-1.13)
[2017-11-09] MEDS: ZOSYN/NS 2.25 GM/50ML 2.25 GM/50 ML BAG IV SCH (12:35)
--- NOTE | 2017-11-09 13:08 | Progress Note ---
Assessment and Plan - Patient Problems (1) Acute kidney failure with tubular necrosis Current Visit: Yes Status: Acute Plan to address problem: secondary to hemorrhagic shock, BP is now stabilized s/p multiple blood products , off vasopressors currently. Azotemia worsening, however pt with increased urine output. hyperkalemia/met acidosis improved with medical treatment. cont supportive care for ELÍAS/ATN, avoid nephrotoxins, NSAIDs, cont vasopressor support to keep MAP < 65mmhg. D/w RN, ICU team, and family at bedside. (2) Hyperkalemia Current Visit: Yes Status: Acute Plan to address problem: resolved (3) Metabolic acidosis Current Visit: Yes Status: Acute Plan to address problem: improved, will d/c D5W and switch IVF to IV NS (4) Hemorrhagic shock Current Visit: Yes Status: Acute Plan to address problem: s/p emergent hysterectomy, blood transfusion with PRBC ongoing for hb < 7 (5) Acute blood loss anemia Current Visit: Yes Status: Acute Plan to address problem: s/p multiple blood porducts incl. transfuse prn for Hb <7 (6) Acute respiratory failure with hypoxia Current Visit: Yes Status: Acute Plan to address problem: s/p extubation Subjective Date of service: 11/09/17 Principal diagnosis: Hemrrohagic shock, DIC, Septic shock, DIC, post hemorrhage Interval history: Pt awake alert, s/p extubation, in no acute respiratory distress. Remains non- oliguric. Objective - Vital Signs Vital signs: Vital Signs - 12hr 11/09/17 11/09/17 11/09/17 01:15 01:30 01:45 Temperature Pulse Rate 140 H 137 H 134 H Respiratory 22 18 22 Rate Blood Pressure 101/61 92/51 85/61 O2 Sat by Pulse 98 98 93 Oximetry 11/09/17 11/09/17 11/09/17 02:00 02:15 02:20 Temperature 98.5 F Pulse Rate 142 H 126 H Respiratory 30 H 21 Rate Blood Pressure 85/61 97/52 O2 Sat by Pulse 93 97 Oximetry 11/09/17 11/09/17 11/09/17 02:30 02:45 03:00 Temperature Pulse Rate 126 H 123 H 123 H Respiratory 16 18 16 Rate Blood Pressure 102/59 98/58 100/61 O2 Sat by Pulse 98 93 92 Oximetry 11/09/17 11/09/17 11/09/17 03:10 03:15 03:30 Temperature 97.7 F Pulse Rate 130 H 130 H Respiratory 16 21 Rate Blood Pressure 109/54 107/62 O2 Sat by Pulse 94 95 Oximetry 11/09/17 11/09/17 11/09/17 03:45 04:00 04:15 Temperature Pulse Rate 132 H 122 H 122 H Respiratory 14 22 19 Rate Blood Pressure 116/63 99/60 102/58 O2 Sat by Pulse 94 93 98 Oximetry 11/09/17 11/09/17 11/09/17 04:30 04:45 05:00 Temperature 99 F 98.5 F Pulse Rate 122 H 120 H 118 H Respiratory 18 18 16 Rate Blood Pressure 100/56 102/59 100/57 O2 Sat by Pulse 99 100 99 Oximetry 11/09/17 11/09/17 11/09/17 05:16 05:30 05:39 Temperature 98.7 F Pulse Rate 127 H 116 H Respiratory 14 17 Rate Blood Pressure 100/57 101/58 O2 Sat by Pulse 99 94 Oximetry 11/09/17 11/09/17 11/09/17 05:45 06:00 06:09 Temperature 98.7 F Pulse Rate 116 H 117 H Respiratory 19 19 Rate Blood Pressure 97/55 107/56 O2 Sat by Pulse 96 96 Oximetry 11/09/17 11/09/17 11/09/17 06:15 06:30 06:45 Temperature Pulse Rate 117 H 117 H 115 H Respiratory 18 17 17 Rate Blood Pressure 102/61 98/60 104/61 O2 Sat by Pulse 94 96 94 Oximetry 11/09/17 11/09/17 11/09/17 07:00 07:15 07:30 Temperature 98.4 F Pulse Rate 110 H 113 H 105 H Respiratory 21 21 20 Rate Blood Pressure 106/59 107/64 97/63 O2 Sat by Pulse 95 95 97 Oximetry 11/09/17 11/09/17 11/09/17 07:44 07:46 08:00 Temperature 98.0 F Pulse Rate 109 H 104 H Respiratory 16 23 Rate Blood Pressure 97/63 108/65 O2 Sat by Pulse 95 96 97 Oximetry 11/09/17 11/09/17 11/09/17 08:15 08:30 08:46 Temperature Pulse Rate 102 H 113 H 112 H Respiratory 21 20 17 Rate Blood Pressure 108/67 108/67 108/67 O2 Sat by Pulse 97 96 98 Oximetry 11/09/17 11/09/17 11/09/17 12:00 12:11 12:26 Temperature 98.1 F 98.1 F 98.8 F Pulse Rate 99 H 98 H Respiratory 18 19 Rate Blood Pressure 109/71 105/73 O2 Sat by Pulse 98 99 Oximetry - General Appearance General appearance: well-developed, well-nourished, appears stated age EENT: ATNC, PERRL, mucous membranes moist Neck: no JVD Respiratory: Present: Clear to Ascultation Cardiology: regular, S1S2 Gastrointestinal: normoactive bowel sounds Integumentary: no rash, other (+ edema b/l LE ) Neurologic: no focal deficit, alert and oriented x3, strength 5/5, CN 3-12 intact Psychiatric: mood/affect appropriate, cooperative - Lab 11/09/17 09:36 11/09/17 09:36 Most recent lab results Calcium 6.2 mg/dL (8.4-10.2) L 11/09/17 09:36
[2017-11-09] MEDS ORDERED: NACL 0.9% 500 ML 500 ML IV ONE (14:50)
--- NOTE | 2017-11-09 14:54 | Hem/Onc Consultation ---
History of Present Illness - Reason for Consult Consult date: 11/09/17 - History of Present Illness Patient admitted with post bleeding and day 2 agter surgery to stop bleeding. Awake today. States feels better overall. Met with mother. Past History Past Medical History: No medical history Social history: no significant social history, single. denies: smoking, alcohol abuse, prescription drug abuse Family history: no significant family history Medications and Allergies Allergies Allergy/AdvReac Type Severity Reaction Status Date / Time No Known Allergies Allergy Unverified 11/06/17 15:33 Home Medications Medication Instructions Recorded Confirmed Last Taken Type Pnv No.95/Ferrous Fum/Folic AC 1 tab PO QDAY 11/06/17 11/06/17 11/05/17 History [ Vitamins Tablet] Active Meds: Active Medications Acetaminophen (Tylenol) 650 mg PO Q4H PRN PRN Reason: Pain MILD(1-3)/Fever >100.5/TANG Last Admin: 11/08/17 22:01 Dose: 650 mg Bisacodyl (Dulcolax) 10 mg CO BID PRN PRN Reason: Constipation Famotidine (Pepcid) 20 mg IV DAILY GERRY Last Admin: 11/09/17 11:21 Dose: 20 mg Fentanyl (Sublimaze) 50 mcg IV Q2H PRN PRN Reason: Pain , Severe (7-10) Last Admin: 11/09/17 14:29 Dose: 50 mcg Hydrophilic Ointment (Vaseline Lip Therapy) 1 applic TP Q2HR PRN PRN Reason: Dry Lips Vasopressin 20 unit/ Sodium (Chloride) 101 mls @ 9.09 mls/hr IV TITR GERRY; Protocol Propofol (Diprivan 10 Mg/Ml) 1,000 mg in 100 mls @ 1.946 mls/hr IV TITR GERRY; Protocol Norepinephrine (Levophed Drip 4 Mg/Ns 250 Ml) 4 mg in 250 mls @ 7.5 mls/hr IV TITR GERRY; Protocol Last Titration: 11/08/17 07:02 Dose: Infused Piperacillin Sod/Tazobactam Sod (Zosyn/Ns 2.25 Gm/50ml) 2.25 gm in 50 mls @ 100 mls/hr IV Q6HR GERRY Sodium Chloride (Nacl 0.9% 1000 Ml) 1,000 mls @ 75 mls/hr IV DIRECT GERRY Sodium Chloride (Nacl 0.9% 500 Ml) 500 mls @ 0 mls/hr IV ONCE ONE Stop: 11/09/17 14:51 Multivitamins (Centrum Liq) 5 ml PO QDAY GERRY Last Admin: 11/09/17 11:21 Dose: 5 ml Ondansetron HCl (Zofran) 4 mg IV Q8H PRN PRN Reason: Nausea And Vomiting Sodium Chloride (Sodium Chloride Flush Syringe 10 Ml) 10 ml IV PRN [facility] Review of Systems All systems: negative (weakness) Exam - Constitutional Vitals: Last Vital Signs Temp 98.4 F 11/09/17 14:35 Pulse 95 H 11/09/17 14:35 Resp 18 11/09/17 14:35 BP 110/72 11/09/17 14:35 Pulse Ox 97 11/09/17 14:35 Pain Intensity (0-10): denies any pain - EENT Eyes: PERRL ENT: hearing intact Lymph node exam: negative cervical - Neck Neck: supple - Respiratory Respiratory effort: Positive: normal Respiratory: bilateral: CTA - Cardiovascular Rhythm: regular Results - Labs lab Results: Laboratory Results - last 24 hr 11/06/17 11/07/17 11/08/17 16:00 18:35 19:08 WBC TNR RBC TNR Hgb TNR Hct TNR MCV TNR MCH TNR MCHC TNR RDW TNR Plt Count TNR Lymph % (Auto) [place] % (Auto) Eos % (Auto) Baso % (Auto) Lymph # [place] # Eos # Baso # Seg Neutrophils % Seg Neutrophils # PT INR Fibrinogen Sodium Potassium Chloride Carbon Dioxide Anion Gap BUN Creatinine Estimated GFR BUN/Creatinine Ratio Glucose Lactic Acid Calcium Blood Type AB POSITIVE Antibody Screen Negative Crossmatch See Detail See Detail 11/08/17 11/09/17 11/09/17 21:09 09:36 09:36 WBC 15.9 H 15.7 H RBC 1.26 L 2.24 L Hgb 3.9 L* D 6.8 L Hct 11.6 L* D 20.3 L D MCV 92 91 MCH 31 30 MCHC 33 33 RDW 14.7 14.4 Plt Count 64 L 57 L Lymph % (Auto) 7.7 L [place] % (Auto) 6.6 Eos % (Auto) 0.1 Baso % (Auto) 0.1 Lymph # 1.2 [place] # 1.0 H Eos # 0.0 Baso # 0.0 Seg Neutrophils % 85.5 H Seg Neutrophils # 13.4 H PT INR Fibrinogen Sodium 142 Potassium 4.0 Chloride 107.9 H Carbon Dioxide 19 L Anion Gap 19 BUN 37 H Creatinine 3.7 H D Estimated GFR 18 BUN/Creatinine Ratio 10 Glucose 110 H Lactic Acid Calcium 6.2 L Blood Type Antibody Screen Crossmatch 11/09/17 11/09/17 10:43 10:43 WBC RBC Hgb Hct MCV MCH MCHC RDW Plt Count Lymph % (Auto) [place] % (Auto) Eos % (Auto) Baso % (Auto) Lymph # [place] # Eos # Baso # Seg Neutrophils % Seg Neutrophils # PT 16.1 H INR 1.22 H Fibrinogen 407 Sodium Potassium Chloride Carbon Dioxide Anion Gap BUN Creatinine Estimated GFR BUN/Creatinine Ratio Glucose Lactic Acid 1.70 Calcium Blood Type Antibody Screen Crossmatch Assessment and Plan - Patient Problems (1) Acute blood loss anemia Current Visit: Yes Status: Acute Plan to address problem: Transfuse 2 units of PRBC. Coags are better. Monitor counts . Platelets if < 50K and bleeding.
--- NOTE | 2017-11-09 17:33 | Cat Scan Report ---
FINAL REPORT PROCEDURE: CT abdomen and pelvis with contrast. TECHNIQUE: Computerized axial tomography of the abdomen and pelvis was performed after the IV injection of iodinated nonionic contrast. HISTORY: Bleeding. COMPARISON: No prior studies are available for comparison. FINDINGS: I was provided no other history then bleeding. There are transversely oriented skin [place] in the lower pelvis. I wonder if the patient may have had a recent Caesarean section or possibly hysterectomy. Clinical correlation is necessary. Intravenous contrast was injected through a right femoral vein catheter. This accounts for the intense enhancement of the inferior vena cava. There are small bilateral pleural effusions. There is some subsegmental atelectasis in the dependent portions of both lower lobes. The heart size is normal. The liver, pancreas and spleen are grossly normal. The gallbladder is present. The adrenal glands are not enlarged. Both kidneys appear normal in size and configuration. The abdominal aorta has a normal caliber. There is no retroperitoneal adenopathy. The unopacified gastrointestinal tract is unremarkable. There is no definite hemoperitoneum. There is a surgical drain that enters the pelvis just cephalad to the skin staple line. This passes through the left rectus abdominus muscle. The right rectus abdominus muscle is fairly prominent. It is possible that there is some intramuscular hemorrhage in the right rectus abdominus muscle. This is not certain however. There is no definite fluid adjacent to the surgical drain. There is a small collection of air located anterior to the drain on image 142 of series 2. I think that this may be some air within the bladder. There is a [place] catheter present. There is a large amount of surgical packing material within the vagina. The uterus is poorly defined. There is some lower attenuation material with a few bubbles of gas located anterior to this packing material. This could represent a poorly defined hematoma or possibly hemorrhage within the uterus. This poorly defined collection measures approximately 6.5 centimeters x 5.5 centimeters in cross-section. It is seen on image 139 of series 2. There is a tiny amount of gas within the subcutaneous tissues near the incision line. This is not unusual. The regional skeleton appears intact. There is a moderate lumbar scoliosis. IMPRESSION: Recent pelvic surgery of uncertain etiology. Clinical correlation recommended. Small bilateral pleural effusions with subsegmental atelectasis in both lower lobes. Possible small amount of intramuscular hemorrhage within the right rectus abdominus muscle. Poorly defined collection located anterior to pelvic surgical packing material. This could represent a pelvic hematoma or possibly hemorrhage within the uterus if it is still present.
[2017-11-09] MEDS ORDERED: CITRATE OF MAGNESIA PO ONE (18:45)
[2017-11-09] MEDS ORDERED: CHLORASEPTIC MM PRN (21:22)
[2017-11-09] MEDS: MYLICON PO PRN (21:46)
[2017-11-10] MEDS: ZOSYN/NS 2.25 GM/50ML 2.25 GM/50 ML BAG IV SCH ×6 (00:27→22:19)
[2017-11-10] MEDS: SUBLIMAZE IV PRN ×3 (03:44→11:14)
[2017-11-10] MEDS: NACL 0.9% 1000 ML 1,000 ML IV SCH ×2 (03:46→13:48)
[2017-11-10 05:43] LABS: Basophils % (Auto) 0.1 % (0.0-1.8); Eosinophils # (Auto) 0.2 K/mm3 (0.0-0.4); Eosinophils % (Auto) 1.2 % (0.0-4.3); Hematocrit 25.8 % (30.3-42.9); Hemoglobin 9.1 gm/dl (10.1-14.3); Lymphocytes # (Auto) 1.2 K/mm3 (1.2-5.4); Lymphocytes % (Auto) 6.9 % (13.4-35.0); Mean Corpuscular HGB Conc 35 % (30-34); Mean Corpuscular Hemoglobin 31 pg (28-32); Mean Corpuscular Volume 88 fl (79-97); Monocytes # (Auto) 0.8 K/mm3 (0.0-0.8); Monocytes % (Auto) 4.5 % (0.0-7.3); Red Blood Count 2.93 M/mm3 (3.65-5.03); Red Cell Distribution Width 14.3 % (13.2-15.2)
[2017-11-10 06:19] LABS: Platelet Count 60 K/mm3 (140-440)
[2017-11-10 06:26] LABS: Calcium 6.2 mg/dL (8.4-10.2)
--- NOTE | 2017-11-10 08:55 | Progress Note ---
Assessment and Plan A/P PPD1 POD 3 /supracervical hysterectomy Post operative hypoxemic respiratory failure on MVS -Hemorrhagic shock -Massive blood transfusion -Metabolic acidosis -Acute kidney failure secondary to ATN -Sepsis -post hysterectomy -Post hemorrhage -DIC -Hyperkalemia s/p prbc hemoglobin 9.1 follow recommnedations from renal, hematology, pipe connector platelets 60s advance diet as tolerated CT scan of brain neg await recommendations from Dr. Vickers concerning ct angiogram requested uop improving Subjective - Subjective Date of service: 11/10/17 Principal diagnosis: Hemrrohagic shock, DIC, Septic shock, DIC, post hemorrhage Interval history: This is a 26 yo at 40+1 weeks admitted to labor and delivery with known BP 140-150/90s. patient was sent in by Dr. Lowe. She is late to care with hx of trich treated in this . Patient reports: appetite normal, voiding normally, pain well controlled [place]: doing well Objective - Vital Signs Latest vital signs: Vital Signs Temp Pulse Pulse Resp BP Pulse Ox 11/10/17 08:00 97.3 F L 11/10/17 06:15 91 H 17 116/74 92 11/10/17 06:00 96 H 24 116/74 93 11/10/17 05:45 101 H 19 120/82 96 11/10/17 05:31 81 17 120/82 99 11/10/17 05:15 84 19 120/82 100 11/10/17 05:00 76 22 120/82 100 11/10/17 04:45 84 19 117/78 99 11/10/17 04:31 90 19 117/78 99 11/10/17 04:15 88 19 117/78 99 11/10/17 04:00 98.1 F 82 76 20 117/78 99 11/10/17 03:45 89 16 121/85 98 11/10/17 03:44 19 11/10/17 03:31 85 16 121/85 97 11/10/17 03:15 81 17 121/85 98 11/10/17 03:00 76 17 121/85 100 11/10/17 02:45 91 H 28 H 119/80 99 11/10/17 02:31 86 19 119/80 99 11/10/17 02:15 83 19 119/80 99 05/04/18 02:00 83 19 119/80 100 05/04/18 01:55 78 22 05/04/18 01:45 83 18 118/83 100 05/04/18 01:31 91 H 17 118/83 99 05/04/18 01:15 83 17 118/83 98 05/04/18 01:00 78 16 118/83 99 05/04/18 00:45 83 19 117/84 98 05/04/18 00:31 80 21 117/84 99 05/04/18 00:27 83 24 117/84 99 05/04/18 00:15 98.4 F 80 19 122/80 99 05/04/18 00:00 98.4 F 79 21 121/83 99 05/03/18 23:45 98.3 F 87 20 112/72 100 05/03/18 23:30 98.1 F 93 H 18 109/68 99 05/03/18 23:15 89 15 120/80 99 05/03/18 23:01 98.3 F 05/03/18 23:00 94 H 18 112/74 99 05/03/18 22:45 90 17 112/70 99 05/03/18 22:30 99 H 22 106/70 99 05/03/18 22:15 94 H 18 111/70 99 05/03/18 22:05 98.5 F 05/03/18 22:00 91 H 78 22 110/75 99 05/03/18 21:50 98.3 F 05/03/18 21:45 92 H 21 108/73 100 05/03/18 21:30 96 H 20 108/73 98 05/03/18 21:15 88 20 116/72 99 05/03/18 21:01 100 H 22 116/72 99 05/03/18 20:45 89 21 113/76 99 05/03/18 20:30 93 H 23 113/76 98 05/03/18 20:15 97 H 21 114/71 98 05/03/18 20:00 98.8 F 100 H 19 109/65 97 05/03/18 19:48 96 05/03/18 19:45 99 H 20 114/71 99 05/03/18 19:31 101 H 19 114/71 99 05/03/18 19:15 102 H 20 124/71 99 05/03/18 19:00 102 H 21 124/71 99 05/03/18 18:45 97 H 24 123/64 99 05/03/18 18:30 101 H 14 123/64 100 05/03/18 18:15 98.5 F 99 H 19 117/77 100 05/03/18 18:00 98 H 20 117/77 99 05/03/18 17:53 98.5 F 108 H 30 H 118/79 96 05/03/18 17:45 108 H 30 H 118/79 96 05/03/18 17:30 100 H 20 116/79 98 05/03/18 17:23 98.3 F 89 22 120/81 99 05/03/18 17:15 89 22 120/81 99 05/03/18 17:00 101 H 14 120/81 99 05/03/18 16:54 98 H 05/03/18 16:53 98.5 F 100 H 18 118/79 98 05/03/18 16:45 120 H 20 113/89 97 05/03/18 16:38 98.1 F 95 H 22 113/77 98 05/03/18 16:30 97 H 22 113/77 99 05/03/18 16:15 104 H 22 113/89 98 05/03/18 16:01 114 H 20 113/89 99 05/03/18 16:00 98.1 F 05/03/18 15:46 87 21 110/72 99 05/03/18 15:36 92 H 21 05/03/18 14:35 98.4 F 95 H 18 110/72 97 05/03/18 14:30 91 H 17 110/72 97 05/03/18 14:16 84 17 107/75 97 05/03/18 14:00 86 18 107/75 97 05/03/18 13:56 98.4 F 90 18 107/75 98 05/03/18 13:46 93 H 16 104/71 98 05/03/18 13:30 91 H 18 104/71 98 05/03/18 13:26 98.3 F 91 H 17 105/72 99 05/03/18 13:16 91 H 20 101/72 98 05/03/18 13:00 103 H 13 101/72 99 05/03/18 12:56 98.3 F 95 H 18 101/72 98 05/03/18 12:46 102 H 24 107/71 99 11/09/17 12:30 101 H 19 107/71 98 11/09/17 12:26 98.8 F 98 H 19 105/73 99 11/09/17 12:16 100 H 19 109/71 99 11/09/17 12:11 98.1 F 99 H 18 109/71 98 11/09/17 12:00 98.1 F 100 H 21 109/71 99 11/09/17 11:46 102 H 18 104/63 100 11/09/17 11:30 98 H 18 104/63 99 11/09/17 11:16 102 H 19 104/63 99 11/09/17 11:00 102 H 18 104/63 99 11/09/17 10:46 103 H 16 121/71 98 11/09/17 10:30 102 H 22 121/71 98 11/09/17 10:16 98 H 17 121/71 99 11/09/17 10:00 110 H 15 118/79 98 11/09/17 09:46 110 H 21 118/79 98 11/09/17 09:30 107 H 17 118/79 98 11/09/17 09:16 109 H 19 118/79 100 11/09/17 09:00 115 H 14 118/79 98 Intake and Output 11/09/17 11/10/17 11/10/17 23:59 07:59 15:59 Intake Total 1977 650 Output Total 400 1150 Balance 1577 -500 Intake: IV 50 ZOSYN/NS 2.25 GM/50ML 2. 50 25 gm In 50 ml @ 100 mls/ hr IV Q6HR [facility] Rx#: [id number] Oral 1680 240 Intake, Free Water 240 Tube Feeding 120 Blood Product 297 0 Fresh Frozen Plasma 297 Thawed Unit [id number] Leukoreduced Red Blood 0 0 Cells Unit [id number] Platelet Pheresis Unit 0 [id number] Output: Drainage 50 350 Abdomen 50 350 Urine 350 800 Indwelling Catheter 350 800 Other: Total, Intake Amount 120 120 Total, Output Amount 150 1150 Voiding Method Indwelling Catheter Indwelling Catheter - Exam Breasts: Present: normal Cardiovascular: Present: Regular rate, Normal S1 Lungs: Present: Clear to auscultation, Normal air movement Abdomen: Present: normal appearance, soft, tenderness, normal bowel sounds. Absent: guarding Vulva: both: normal (swollen) Deep Tendon Reflex Grade: Normal +2 Incision: Present: dressed - Labs Labs: Abnormal lab results 11/06/17 11/07/17 11/09/17 Range/Units 16:00 18:35 09:36 WBC 15.7 H (4.5-11.0) K/mm3 RBC 2.24 L (3.65-5.03) M/mm3 Hgb 6.8 L (10.1-14.3) gm/dl Hct 20.3 L D (30.3-42.9) % MCHC (30-34) % Plt Count 57 L (140-440) K/mm3 Lymph % (Auto) 7.7 L (13.4-35.0) % [place] # 1.0 H (0.0-0.8) K/mm3 Seg Neutrophils % 85.5 H (40.0-70.0) % Seg Neutrophils # 13.4 H (1.8-7.7) K/mm3 PT (12.2-14.9) Sec. INR (0.87-1.13) Chloride (98-107) mmol/L Carbon Dioxide (22-30) mmol/L BUN (7-17) mg/dL Creatinine (0.7-1.2) mg/dL Glucose (65-100) mg/dL Calcium (8.4-10.2) mg/dL Crossmatch See Detail See Detail 11/09/17 11/09/17 11/10/17 Range/Units 09:36 10:43 05:23 WBC 17.4 H (4.5-11.0) K/mm3 RBC 2.93 L (3.65-5.03) M/mm3 Hgb 9.1 L (10.1-14.3) gm/dl Hct 25.8 L (30.3-42.9) % MCHC 35 H (30-34) % Plt Count 60 L (140-440) K/mm3 Lymph % (Auto) 6.9 L (13.4-35.0) % [place] # (0.0-0.8) K/mm3 Seg Neutrophils % 87.3 H (40.0-70.0) % Seg Neutrophils # 15.2 H (1.8-7.7) K/mm3 PT 16.1 H (12.2-14.9) Sec. INR 1.22 H (0.87-1.13) Chloride 107.9 H (98-107) mmol/L Carbon Dioxide 19 L (22-30) mmol/L BUN 37 H (7-17) mg/dL Creatinine 3.7 H D (0.7-1.2) mg/dL Glucose 110 H (65-100) mg/dL Calcium 6.2 L (8.4-10.2) mg/dL Crossmatch 11/10/17 Range/Units 05:23 WBC (4.5-11.0) K/mm3 RBC (3.65-5.03) M/mm3 Hgb (10.1-14.3) gm/dl Hct (30.3-42.9) % MCHC (30-34) % Plt Count (140-440) K/mm3 Lymph % (Auto) (13.4-35.0) % [place] # (0.0-0.8) K/mm3 Seg Neutrophils % (40.0-70.0) % Seg Neutrophils # (1.8-7.7) K/mm3 PT (12.2-14.9) Sec. INR (0.87-1.13) Chloride (98-107) mmol/L Carbon Dioxide 19 L (22-30) mmol/L BUN 37 H (7-17) mg/dL Creatinine 4.1 H (0.7-1.2) mg/dL Glucose 101 H (65-100) mg/dL Calcium 6.2 L (8.4-10.2) mg/dL Crossmatch
--- NOTE | 2017-11-10 09:17 | Hem/Onc Progress Note ---
Assessment and Plan CBC stable. Continue to monitor. If hemoglobin or platelet drop or if there is bleeding, we will be transfusing her again. Renal insufficiency secondary to hypotensive shock. Nephrology on board Subjective Date of service: 11/10/17 Interval history: Patient feels fair. Still quite tired. Complains of right leg being heavy. Objective - Constitutional Vitals: Last Vital Signs Temp 97.3 F L 11/10/17 08:00 Pulse 91 H 11/10/17 06:15 Resp 17 11/10/17 06:15 BP 116/74 11/10/17 06:15 Pulse Ox 92 11/10/17 06:15 General appearance: no acute distress Performance status: 4-completely disabled - Respiratory Respiratory effort: Positive: normal Respiratory: bilateral: diminished - Cardiovascular Rhythm: regular Extremities: abnormal (SCDs) - Labs Lab Results: Laboratory Results - last 24 hr 11/06/17 11/07/17 11/09/17 16:00 18:35 09:36 WBC 15.7 H RBC 2.24 L Hgb 6.8 L Hct 20.3 L D MCV 91 MCH 30 MCHC 33 RDW 14.4 Plt Count 57 L Lymph % (Auto) 7.7 L [place] % (Auto) 6.6 Eos % (Auto) 0.1 Baso % (Auto) 0.1 Lymph # 1.2 [place] # 1.0 H Eos # 0.0 Baso # 0.0 Seg Neutrophils % 85.5 H Seg Neutrophils # 13.4 H PT INR Fibrinogen Sodium Potassium Chloride Carbon Dioxide Anion Gap BUN Creatinine Estimated GFR BUN/Creatinine Ratio Glucose Lactic Acid Calcium Blood Type AB POSITIVE Antibody Screen Negative Crossmatch See Detail See Detail 11/09/17 11/09/17 11/09/17 09:36 10:43 10:43 WBC RBC Hgb Hct MCV MCH MCHC RDW Plt Count Lymph % (Auto) [place] % (Auto) Eos % (Auto) Baso % (Auto) Lymph # [place] # Eos # Baso # Seg Neutrophils % Seg Neutrophils # PT 16.1 H INR 1.22 H Fibrinogen 407 Sodium 142 Potassium 4.0 Chloride 107.9 H Carbon Dioxide 19 L Anion Gap 19 BUN 37 H Creatinine 3.7 H D Estimated GFR 18 BUN/Creatinine Ratio 10 Glucose 110 H Lactic Acid 1.70 Calcium 6.2 L Blood Type Antibody Screen Crossmatch 11/10/17 11/10/17 05:23 05:23 WBC 17.4 H RBC 2.93 L Hgb 9.1 L Hct 25.8 L MCV 88 MCH 31 MCHC 35 H RDW 14.3 Plt Count 60 L Lymph % (Auto) 6.9 L [place] % (Auto) 4.5 Eos % (Auto) 1.2 Baso % (Auto) 0.1 Lymph # 1.2 [place] # 0.8 Eos # 0.2 Baso # 0.0 Seg Neutrophils % 87.3 H Seg Neutrophils # 15.2 H PT INR Fibrinogen Sodium 140 Potassium 4.1 Chloride 106.6 Carbon Dioxide 19 L Anion Gap 19 BUN 37 H Creatinine 4.1 H Estimated GFR 16 BUN/Creatinine Ratio 9 Glucose 101 H Lactic Acid Calcium 6.2 L Blood Type Antibody Screen Crossmatch
[2017-11-10] MEDS: MYLICON PO PRN (11:05)
[2017-11-10] MEDS: PEPCID PO SCH (11:06)
[2017-11-10] MEDS: Centrum Liq PO SCH (11:07)
--- NOTE | 2017-11-10 11:44 | Progress Note ---
Assessment and Plan Acute Hypoxemic Respiratory Failure s/p MVS < 96 hours Aspiration Pneumonia (HCAP) vs Pulmonary Edema Hemorrhagic shock Post hemorrhage Leucocytosis Pulmonary Edema vs Aspiration pneumonia - follow 2D ECHO to r/o significant chris- cardiomyopathy - get 2 sets of blood cultures re: persistent leucocytosis - prn NIPPV for increased work of breathing - conservative volume management at this point - Massive transfusion protocol followed (repleted calcium, monitor for hyperkalemia) - discontinue brewer catheter if OK with attending - discontinued femoral CVL - consider IR for possible pelvic artery embolization if bleeding persist's s/p hysterectomy - continue other care per attending / other consultants - ok to transfer out of ICU ..... 35' Subjective Date of service: 11/10/17 Principal diagnosis: Hemrrohagic shock; DIC; post hemorrhage Interval history: Patient is seen today for: Hemrrohagic shock; DIC; post hemorrhage Seen and examined at bedside; 24hour events reviewed; nursing and respiratory care staff consulted; no adverse overnight events reported to me; doing better; remains on supplemental oxygen; CXR with volume overload pattern; No N/V/F/C Objective Vital Signs - 12hr 11/09/17 11/10/17 11/10/17 23:45 00:00 00:15 Temperature 98.3 F 98.4 F 98.4 F Pulse Rate 87 79 80 Pulse Rate [ Right Dorsalis Pedis] Respiratory 20 21 19 Rate Blood Pressure 112/72 121/83 122/80 O2 Sat by Pulse 100 99 99 Oximetry 11/10/17 11/10/17 11/10/17 00:27 00:31 00:45 Temperature Pulse Rate 83 80 83 Pulse Rate [ Right Dorsalis Pedis] Respiratory 24 21 19 Rate Blood Pressure 117/84 117/84 117/84 O2 Sat by Pulse 99 99 98 Oximetry 11/10/17 11/10/17 11/10/17 01:00 01:15 01:31 Temperature Pulse Rate 78 83 91 H Pulse Rate [ Right Dorsalis Pedis] Respiratory 16 17 17 Rate Blood Pressure 118/83 118/83 118/83 O2 Sat by Pulse 99 98 99 Oximetry 11/10/17 11/10/17 11/10/17 01:45 01:55 02:00 Temperature Pulse Rate 83 83 Pulse Rate [ 78 Right Dorsalis Pedis] Respiratory 18 22 19 Rate Blood Pressure 118/83 119/80 O2 Sat by Pulse 100 100 Oximetry 11/10/17 11/10/17 11/10/17 02:15 02:31 02:45 Temperature Pulse Rate 83 86 91 H Pulse Rate [ Right Dorsalis Pedis] Respiratory 19 19 28 H Rate Blood Pressure 119/80 119/80 119/80 O2 Sat by Pulse 99 99 99 Oximetry 11/10/17 11/10/17 11/10/17 03:00 03:15 03:31 Temperature Pulse Rate 76 81 85 Pulse Rate [ Right Dorsalis Pedis] Respiratory 17 17 16 Rate Blood Pressure 121/85 121/85 121/85 O2 Sat by Pulse 100 98 97 Oximetry 11/10/17 11/10/17 11/10/17 03:44 03:45 04:00 Temperature 98.1 F Pulse Rate 89 82 Pulse Rate [ 76 Right Dorsalis Pedis] Respiratory 19 16 20 Rate Blood Pressure 121/85 117/78 O2 Sat by Pulse 98 99 Oximetry 11/10/17 11/10/17 11/10/17 04:15 04:31 04:45 Temperature Pulse Rate 88 90 84 Pulse Rate [ Right Dorsalis Pedis] Respiratory 19 19 19 Rate Blood Pressure 117/78 117/78 117/78 O2 Sat by Pulse 99 99 99 Oximetry 11/10/17 11/10/17 11/10/17 05:00 05:15 05:31 Temperature Pulse Rate 76 84 81 Pulse Rate [ Right Dorsalis Pedis] Respiratory 22 19 17 Rate Blood Pressure 120/82 120/82 120/82 O2 Sat by Pulse 100 100 99 Oximetry 11/10/17 11/10/17 11/10/17 05:45 06:00 06:15 Temperature Pulse Rate 101 H 96 H 91 H Pulse Rate [ Right Dorsalis Pedis] Respiratory 19 24 17 Rate Blood Pressure 120/82 116/74 116/74 O2 Sat by Pulse 96 93 92 Oximetry 11/10/17 08:00 Temperature 97.3 F L Pulse Rate Pulse Rate [ Right Dorsalis Pedis] Respiratory Rate Blood Pressure O2 Sat by Pulse Oximetry Constitutional: no acute distress, alert Eyes: non-icteric ENT: oropharynx moist, other (extubated) Neck: supple, no lymphadenopathy, no JVD, other (no thyromegaly) Effort: mildly labored Ascultation: Bilateral: diminished breath sounds, rales (bases) Percussion: Bilateral: not dull Cardiovascular: regular rate and rhythm, other (no murmurs, no gallops or rubs) Gastrointestinal: normoactive bowel sounds, soft, non-tender, tender, other (ADRIEN drain in place, clean dry abdominal dressing) Integumentary: normal Extremities: no cyanosis, no edema, pulses normal, no ischemia or petechiae Neurologic: normal mental status, non-focal exam, pupils equal and round, motor strength normal and Psychiatric: mood appropriate, affect normal CBC and BMP: 11/11/17 04:25 11/11/17 16:44 ABG, PT/INR, D-dimer: ABG POC ABG pH 7.372 (7.35-7.45) 11/08/17 05:39 POC ABG pCO2 23.4 (35-45) L 11/08/17 05:39 POC ABG pO2 246 (80-105) H 11/08/17 05:39 POC ABG HCO3 13.6 11/08/17 05:39 POC ABG Total CO2 14 11/08/17 05:39 POC ABG O2 Sat 100 11/08/17 05:39 PT/INR, D-dimer PT 16.1 Sec. (12.2-14.9) H 11/09/17 10:43 INR 1.22 (0.87-1.13) H 11/09/17 10:43 D-Dimer > 78808 ng/mlDDU (0-234) H 11/07/17 15:30 Abnormal lab findings: Abnormal Labs 11/06/17 11/06/17 11/07/17 16:00 16:00 14:27 WBC RBC Hgb Hct MCHC Plt Count Lymph % (Auto) [place] % (Auto) [place] # Seg Neutrophils % Seg Neuts % (Manual) Lymphocytes % (Manual) Seg Neutrophils # Seg Neutrophils # Man Lymphocytes # (Manual) PT INR APTT Fibrinogen D-Dimer POC ABG pH 7.067 L POC ABG pCO2 70.3 H POC ABG pO2 24 L Sodium Potassium Chloride Carbon Dioxide BUN Creatinine 0.4 L Glucose Lactic Acid Calcium Total Bilirubin AST ALT Lactate Dehydrogenase 192 H C-Reactive Protein Total Protein Albumin Crossmatch See Detail 11/07/17 11/07/17 11/07/17 15:30 15:30 15:30 WBC 21.7 H RBC 1.96 L Hgb 6.1 L D Hct 18.0 L* D MCHC Plt Count 125 L Lymph % (Auto) [place] % (Auto) [place] # Seg Neutrophils % Seg Neuts % (Manual) 95.5 H Lymphocytes % (Manual) 1.5 L Seg Neutrophils # Seg Neutrophils # Man 20.7 H Lymphocytes # (Manual) 0.3 L PT 65.9 H INR 7.01 H* APTT 126.6 H* Fibrinogen > 1500 H D-Dimer > 79980 H POC ABG pH POC ABG pCO2 POC ABG pO2 Sodium Potassium Chloride 107.1 H Carbon Dioxide 18 L BUN Creatinine 0.6 L Glucose 106 H Lactic Acid Calcium 6.5 L Total Bilirubin 1.50 H AST ALT 6 L Lactate Dehydrogenase C-Reactive Protein Total Protein 3.2 L Albumin 1.9 L Crossmatch 11/07/17 11/07/17 11/07/17 18:35 19:23 19:23 WBC 23.9 H RBC 2.10 L Hgb 6.5 L Hct 19.9 L* MCHC Plt Count 112 L Lymph % (Auto) 6.8 L [place] % (Auto) 10.3 H [place] # 2.5 H Seg Neutrophils % 82.0 H Seg Neuts % (Manual) 81.5 H Lymphocytes % (Manual) 2.5 L Seg Neutrophils # 19.6 H Seg Neutrophils # Man 19.5 H Lymphocytes # (Manual) 0.6 L PT 22.8 H INR 1.88 H APTT 52.9 H Fibrinogen D-Dimer POC ABG pH POC ABG pCO2 POC ABG pO2 Sodium Potassium Chloride Carbon Dioxide BUN Creatinine Glucose Lactic Acid Calcium Total Bilirubin AST ALT Lactate Dehydrogenase C-Reactive Protein Total Protein Albumin Crossmatch See Detail 11/07/17 11/07/17 11/07/17 19:23 19:23 19:23 WBC RBC Hgb Hct MCHC Plt Count Lymph % (Auto) [place] % (Auto) [place] # Seg Neutrophils % Seg Neuts % (Manual) Lymphocytes % (Manual) Seg Neutrophils # Seg Neutrophils # Man Lymphocytes # (Manual) PT INR APTT Fibrinogen D-Dimer POC ABG pH POC ABG pCO2 POC ABG pO2 Sodium Potassium Chloride 109.3 H Carbon Dioxide 16 L BUN Creatinine Glucose 151 H Lactic Acid 7.40 H* Calcium 5.4 L* D Total Bilirubin AST ALT Lactate Dehydrogenase 235 H C-Reactive Protein Total Protein Albumin Crossmatch 11/08/17 11/08/17 11/08/17 05:39 06:30 06:30 WBC 24.0 H RBC 2.27 L Hgb 7.0 L Hct 21.2 L MCHC Plt Count 73 L Lymph % (Auto) [place] % (Auto) [place] # Seg Neutrophils % Seg Neuts % (Manual) Lymphocytes % (Manual) Seg Neutrophils # Seg Neutrophils # Man Lymphocytes # (Manual) PT INR APTT Fibrinogen D-Dimer POC ABG pH POC ABG pCO2 23.4 L POC ABG pO2 246 H Sodium Potassium 7.0 H* D Chloride 113.5 H Carbon Dioxide 14 L BUN 24 H Creatinine 1.9 H D Glucose 139 H Lactic Acid Calcium 5.6 L* Total Bilirubin AST ALT Lactate Dehydrogenase C-Reactive Protein Total Protein Albumin Crossmatch 11/08/17 11/08/17 11/08/17 12:01 12:01 21:09 WBC 15.9 H RBC 1.26 L Hgb 3.9 L* D Hct 11.6 L* D MCHC Plt Count 64 L Lymph % (Auto) [place] % (Auto) [place] # Seg Neutrophils % Seg Neuts % (Manual) Lymphocytes % (Manual) Seg Neutrophils # Seg Neutrophils # Man Lymphocytes # (Manual) PT 18.0 H INR 1.40 H APTT 37.7 H Fibrinogen D-Dimer POC ABG pH POC ABG pCO2 POC ABG pO2 Sodium 146 H Potassium Chloride 115.2 H Carbon Dioxide 16 L BUN 27 H Creatinine 2.2 H Glucose 101 H Lactic Acid Calcium 6.4 L Total Bilirubin AST 88 H ALT Lactate Dehydrogenase C-Reactive Protein Total Protein 3.1 L Albumin 1.8 L Crossmatch 11/09/17 11/09/17 11/09/17 09:36 09:36 10:43 WBC 15.7 H RBC 2.24 L Hgb 6.8 L Hct 20.3 L D MCHC Plt Count 57 L Lymph % (Auto) 7.7 L [place] % (Auto) [place] # 1.0 H Seg Neutrophils % 85.5 H Seg Neuts % (Manual) Lymphocytes % (Manual) Seg Neutrophils # 13.4 H Seg Neutrophils # Man Lymphocytes # (Manual) PT 16.1 H INR 1.22 H APTT Fibrinogen D-Dimer POC ABG pH POC ABG pCO2 POC ABG pO2 Sodium Potassium Chloride 107.9 H Carbon Dioxide 19 L BUN 37 H Creatinine 3.7 H D Glucose 110 H Lactic Acid Calcium 6.2 L Total Bilirubin AST ALT Lactate Dehydrogenase C-Reactive Protein Total Protein Albumin Crossmatch 11/10/17 11/10/17 11/10/17 05:23 05:23 05:23 WBC 17.4 H RBC 2.93 L Hgb 9.1 L Hct 25.8 L MCHC 35 H Plt Count 60 L Lymph % (Auto) 6.9 L [place] % (Auto) [place] # Seg Neutrophils % 87.3 H Seg Neuts % (Manual) Lymphocytes % (Manual) Seg Neutrophils # 15.2 H Seg Neutrophils # Man Lymphocytes # (Manual) PT INR APTT Fibrinogen D-Dimer POC ABG pH POC ABG pCO2 POC ABG pO2 Sodium Potassium Chloride Carbon Dioxide 19 L BUN 37 H Creatinine 4.1 H Glucose 101 H Lactic Acid Calcium 6.2 L Total Bilirubin AST ALT Lactate Dehydrogenase C-Reactive Protein 4.70 H Total Protein Albumin Crossmatch Chest x-ray: image reviewed (mild CHF pattern ) Allied health notes reviewed: nursing
--- NOTE | 2017-11-10 13:11 | Progress Note ---
Assessment and Plan - Patient Problems (1) Acute kidney failure with tubular necrosis Current Visit: Yes Status: Acute Plan to address problem: secondary to hemorrhagic shock, BP is now stabilized s/p multiple blood products , now off vasopressors. Azotemia worsening, however pt with increased urine output, no acute indication for renal replacement therapy at present. Cont supportive care for ELÍAS/ATN, avoid nephrotoxins, NSAIDs. D/w RN, ICU team, and family at bedside. (2) Hyperkalemia Current Visit: Yes Status: Acute Plan to address problem: resolved (3) Metabolic acidosis Current Visit: Yes Status: Acute Plan to address problem: improved (4) Hemorrhagic shock Current Visit: Yes Status: Acute Plan to address problem: s/p emergent hysterectomy, s/p multiple PRBC transfusions (5) Acute blood loss anemia Current Visit: Yes Status: Acute Plan to address problem: s/p multiple blood products, Hb stable at 9.1 Subjective Date of service: 11/10/17 Principal diagnosis: Hemrrohagic shock; DIC; post hemorrhage Interval history: Pt awake alert, in no acute distress Objective - Vital Signs Vital signs: Vital Signs - 12hr 11/10/17 11/10/17 11/10/17 01:15 01:31 01:45 Temperature Pulse Rate 83 91 H 83 Pulse Rate [ Right Dorsalis Pedis] Respiratory 17 17 18 Rate Blood Pressure 118/83 118/83 118/83 O2 Sat by Pulse 98 99 100 Oximetry 11/10/17 11/10/17 11/10/17 01:55 02:00 02:15 Temperature Pulse Rate 83 83 Pulse Rate [ 78 Right Dorsalis Pedis] Respiratory 22 19 19 Rate Blood Pressure 119/80 119/80 O2 Sat by Pulse 100 99 Oximetry 11/10/17 11/10/17 11/10/17 02:31 02:45 03:00 Temperature Pulse Rate 86 91 H 76 Pulse Rate [ Right Dorsalis Pedis] Respiratory 19 28 H 17 Rate Blood Pressure 119/80 119/80 121/85 O2 Sat by Pulse 99 99 100 Oximetry 11/10/17 11/10/17 11/10/17 03:15 03:31 03:44 Temperature Pulse Rate 81 85 Pulse Rate [ Right Dorsalis Pedis] Respiratory 17 16 19 Rate Blood Pressure 121/85 121/85 O2 Sat by Pulse 98 97 Oximetry 11/10/17 11/10/1718 03:45 04:00 04:15 Temperature 98.1 F Pulse Rate 89 82 88 Pulse Rate [ 76 Right Dorsalis Pedis] Respiratory 16 20 19 Rate Blood Pressure 121/85 117/78 117/78 O2 Sat by Pulse 98 99 99 Oximetry 11/10/17 11/10/17 11/10/17 04:31 04:45 05:00 Temperature Pulse Rate 90 84 76 Pulse Rate [ Right Dorsalis Pedis] Respiratory 19 19 22 Rate Blood Pressure 117/78 117/78 120/82 O2 Sat by Pulse 99 99 100 Oximetry 11/10/17 11/10/17 11/10/17 05:15 05:31 05:45 Temperature Pulse Rate 84 81 101 H Pulse Rate [ Right Dorsalis Pedis] Respiratory 19 17 19 Rate Blood Pressure 120/82 120/82 120/82 O2 Sat by Pulse 100 99 96 Oximetry 11/10/17 11/10/17 11/10/17 06:00 06:15 08:00 Temperature 97.3 F L Pulse Rate 96 H 91 H Pulse Rate [ Right Dorsalis Pedis] Respiratory 24 17 Rate Blood Pressure 116/74 116/74 O2 Sat by Pulse 93 92 Oximetry - General Appearance General appearance: well-developed, well-nourished, appears stated age EENT: ATNC, PERRL, mucous membranes moist Neck: no JVD Respiratory: Present: Clear to Ascultation Cardiology: regular, S1S2 Gastrointestinal: normoactive bowel sounds Integumentary: no rash, other (no edema ) Neurologic: no focal deficit, alert and oriented x3, strength 5/5, CN 3-12 intact Psychiatric: mood/affect appropriate, cooperative - Lab 11/10/17 05:23 11/10/17 05:23 Most recent lab results Calcium 6.2 mg/dL (8.4-10.2) L 11/10/17 05:23
[2017-11-10] MEDS: PERCOCET 5/325 PO PRN ×2 (13:16→18:33)
[2017-11-10] MEDS ORDERED: CITRATE OF MAGNESIA PO ONE (17:35)
[2017-11-11] MEDS: PERCOCET 5/325 PO PRN ×3 (00:04→22:04)
[2017-11-11 04:59] LABS: Basophils % (Auto) 0.1 % (0.0-1.8); Eosinophils # (Auto) 0.4 K/mm3 (0.0-0.4); Eosinophils % (Auto) 3.2 % (0.0-4.3); Hematocrit 28.5 % (30.3-42.9); Hemoglobin 9.5 gm/dl (10.1-14.3); Lymphocytes # (Auto) 1.5 K/mm3 (1.2-5.4); Lymphocytes % (Auto) 11.4 % (13.4-35.0); Mean Corpuscular HGB Conc 33 % (30-34); Mean Corpuscular Hemoglobin 31 pg (28-32); Mean Corpuscular Volume 91 fl (79-97); Monocytes # (Auto) 0.8 K/mm3 (0.0-0.8); Monocytes % (Auto) 5.9 % (0.0-7.3); Red Blood Count 3.13 M/mm3 (3.65-5.03); Red Cell Distribution Width 14.3 % (13.2-15.2)
[2017-11-11 05:02] LABS: Platelet Count 85 K/mm3 (140-440)
[2017-11-11] MEDS: ZOSYN/NS 2.25 GM/50ML 2.25 GM/50 ML BAG IV SCH ×3 (05:14→21:56)
[2017-11-11] MEDS: MYLICON PO PRN ×2 (09:09→16:08)
[2017-11-11] MEDS: PEPCID PO SCH (09:09)
[2017-11-11] MEDS: Centrum Liq PO SCH (09:09)
[2017-11-11] MEDS: SUBLIMAZE IV PRN ×2 (11:23→16:59)
[2017-11-11] MEDS ORDERED: TUCKS PAD TP PRN (11:38)
[2017-11-11] MEDS ORDERED: NORCO 5/325 PO PRN (11:38)
[2017-11-11] MEDS ORDERED: TYLENOL PO PRN (11:38)
[2017-11-11] MEDS ORDERED: DULCOLAX PR PRN (11:38)
[2017-11-11] MEDS ORDERED: PHENERGAN PR PRN (11:38)
[2017-11-11] MEDS ORDERED: BENADRYL PO PRN (11:38)
[2017-11-11] MEDS ORDERED: ZOFRAN IV PRN (11:38)
[2017-11-11] MEDS ORDERED: PHENERGAN PO PRN (11:38)
[2017-11-11] MEDS ORDERED: LANSINOH TP PRN (11:38)
[2017-11-11] MEDS ORDERED: SUBLIMAZE IV ONE (11:49)
--- NOTE | 2017-11-11 11:49 | Progress Note ---
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 patient was sent in by Dr. Lowe. She is late to care with hx of trich treated in this . Patient reports: appetite normal, voiding normally, pain well controlled, flatus , bowel movement : doing well Objective - Vital Signs Latest vital signs: Vital Signs Temp Pulse Pulse Pulse Resp BP Pulse Ox 11/11/17 11:00 98 H 20 125/91 92 11/11/17 10:46 90 21 126/82 93 11/11/17 10:30 81 16 126/82 98 11/11/17 10:16 84 14 126/82 94 11/11/17 10:00 85 15 126/82 97 11/11/17 09:46 81 14 133/101 96 11/11/17 09:30 80 15 133/101 97 11/11/17 09:16 103 H 24 133/101 88 11/11/17 09:00 82 14 133/101 94 11/11/17 08:46 87 16 124/84 94 11/11/17 08:30 82 14 124/84 94 11/11/17 08:16 82 15 124/84 96 11/11/17 08:00 97.9 F 82 16 124/84 97 11/11/17 07:51 94 11/11/17 07:46 82 15 118/79 96 11/11/17 07:30 100 H 13 118/79 98 11/11/17 07:16 85 13 118/79 99 05/05/18 07:00 102 H 13 118/79 99 05/05/18 06:46 82 16 113/80 100 05/05/18 06:30 80 15 113/80 100 05/05/18 06:16 70 15 100 05/05/18 06:02 83 11 L 99 05/05/18 05:52 68 72 05/05/18 05:45 77 12 114/82 99 05/05/18 05:31 84 13 114/82 99 05/05/18 05:15 81 12 114/82 99 05/05/18 05:01 82 17 124/81 95 05/05/18 04:45 84 20 124/81 93 05/05/18 04:31 84 14 124/81 93 05/05/18 04:15 96 H 19 124/81 92 05/05/18 04:00 68 12 124/81 100 05/05/18 03:52 68 68 05/05/18 03:51 76 05/05/18 03:45 77 12 119/74 99 05/05/18 03:31 77 11 L 119/74 99 05/05/18 03:15 78 12 119/74 99 05/05/18 03:00 92 H 21 119/74 99 05/05/18 02:45 80 18 117/68 99 05/05/18 02:31 81 11 L 117/68 99 05/05/18 02:15 74 11 L 117/68 100 05/05/18 02:00 77 68 68 12 117/68 99 05/05/18 01:45 77 16 121/75 100 05/05/18 01:31 81 14 121/75 100 05/05/18 01:15 78 12 121/75 100 05/05/18 01:00 78 14 121/75 100 05/05/18 00:45 81 14 105/74 99 05/05/18 00:31 81 14 105/74 99 05/05/18 00:19 79 14 105/74 99 05/05/18 00:15 80 16 105/74 99 05/05/18 00:04 15 05/05/18 00:00 73 75 78 15 105/74 100 05/04/18 23:45 82 14 118/72 99 05/04/18 23:42 89 20 118/72 98 05/04/18 23:31 85 21 118/72 98 05/04/18 23:15 91 H 15 118/72 99 05/04/18 23:00 80 13 118/72 100 05/04/18 22:45 85 12 123/81 98 05/04/18 22:31 84 17 123/81 99 05/04/18 22:15 88 16 123/81 98 05/04/18 22:00 87 14 123/81 99 05/04/18 21:45 84 16 115/88 98 05/04/18 21:31 88 17 115/88 99 05/04/18 21:15 89 16 115/88 97 05/04/18 21:00 88 16 115/88 97 05/04/18 20:45 85 17 118/82 98 05/04/18 20:31 84 14 118/82 98 05/04/18 20:15 91 H 19 118/82 98 05/04/18 20:00 98.3 F 83 78 78 18 118/82 98 05/04/18 19:45 88 15 121/83 99 05/04/18 19:34 98 05/04/18 19:31 89 16 121/83 99 05/04/18 19:15 86 20 121/83 97 05/04/18 19:01 94 H 23 119/80 95 05/04/18 18:45 103 H 14 119/80 92 05/04/18 18:31 103 H 22 119/80 90 05/04/18 18:15 90 18 119/80 91 05/04/18 18:00 80 18 119/80 98 05/04/18 17:45 91 H 12 131/79 96 05/04/18 17:31 78 16 131/79 99 05/04/18 17:15 98 H 18 131/79 97 05/04/18 17:00 83 19 131/79 99 05/04/18 16:45 88 22 126/92 98 05/04/18 16:31 97 H 18 126/92 98 05/04/18 16:15 94 H 21 126/92 97 05/04/18 16:01 89 20 118/82 98 05/04/18 16:00 77 87 2 L 05/04/18 15:45 89 17 118/82 98 05/04/18 15:31 86 16 118/82 99 05/04/18 15:15 95 H 16 118/82 99 11/10/17 15:00 86 20 118/82 98 11/10/17 14:45 82 17 134/88 99 11/10/17 14:31 83 19 134/88 100 11/10/17 14:15 82 17 134/88 98 11/10/17 14:00 82 21 134/88 98 11/10/17 13:45 75 22 130/89 99 11/10/17 13:31 76 19 130/89 99 11/10/17 13:15 91 H 24 130/89 97 11/10/17 13:00 76 21 129/85 99 11/10/17 12:45 73 17 130/89 100 11/10/17 12:31 80 19 130/89 99 11/10/17 12:15 79 20 130/89 99 11/10/17 12:00 78 17 130/89 99 11/10/17 11:55 98.3 F Intake and Output 11/10/17 11/11/17 11/11/17 23:59 07:59 15:59 Intake Total 950 1520 0 Output Total 1665 1001 200 Balance -715 519 -200 Intake: IV 50 ZOSYN/NS 2.25 GM/50ML 2. 50 25 gm In 50 ml @ 100 mls/ hr IV Q8HR [facility] Rx#: [id number] Oral 580 240 Intake, Free Water 120 1243 0 Tube Feeding 200 37 Output: Drainage 200 Abdomen 200 Urine 1665 800 200 Indwelling Catheter 1665 800 200 Stool 1 Other: Total, Intake Amount 100 0 Total, Output Amount 200 1001 200 Voiding Method Indwelling Catheter Indwelling Catheter # Bowel Movements 1 - Exam Breasts: Present: normal Cardiovascular: Present: Regular rate, Normal S1 Lungs: Present: Clear to auscultation, Normal air movement Abdomen: Present: normal appearance, soft, normal bowel sounds. Absent: distention, tenderness, guarding Vulva: both: normal Uterus: Present: other (absent) Extremities: Present: normal Deep Tendon Reflex Grade: Normal +2 Incision: Present: normal, intact - Labs Labs: Abnormal lab results 11/11/17 Range/Units 04:25 WBC 13.4 H (4.5-11.0) K/mm3 RBC 3.13 L (3.65-5.03) M/mm3 Hgb 9.5 L (10.1-14.3) gm/dl Hct 28.5 L (30.3-42.9) % Plt Count 85 L (140-440) K/mm3 Lymph % (Auto) 11.4 L (13.4-35.0) % Seg Neutrophils % 79.4 H (40.0-70.0) % Seg Neutrophils # 10.6 H (1.8-7.7) K/mm3
[2017-11-11] MEDS ORDERED: SODIUM CHLORIDE FLUSH SYRINGE 10 ML IV NR (12:00)
[2017-11-11] MEDS ORDERED: MOTRIN PO SCH (12:00)
[2017-11-11 13:35] LABS: Bacteria,Urine 1+ /HPF (Negative); Bilirubin,Urine NEG (Negative); Blood,Urine MOD (Negative); Color,Urine Yellow (Yellow); Protein,Urine <15 mg/dL mg/dL (Negative); Urobilinogen,Urine < 2.0 mg/dL (<2.0)
--- NOTE | 2017-11-11 14:00 | Hem/Onc Progress Note ---
Assessment and Plan CBC stable. No need for transfusions today. Continue supportive care. Subjective Date of service: 11/11/17 Interval history: Patient feels fair. Still quite tired. Sitting up. No obvious bleeding Objective - Constitutional Vitals: Last Vital Signs Temp 98.2 F 11/11/17 12:21 Pulse 84 11/11/17 13:16 Resp 17 11/11/17 13:16 BP 125/95 11/11/17 13:16 Pulse Ox 94 11/11/17 13:16 Pain Intensity (0-10): denies any pain General appearance: no acute distress Performance status: 3-limited selfcare - Neck Neck: supple - Respiratory Respiratory effort: Positive: normal Respiratory: bilateral: CTA - Cardiovascular Rhythm: regular - Labs Lab Results: Laboratory Results - last 24 hr 11/10/17 11/11/17 13:14 04:25 WBC 13.4 H RBC 3.13 L Hgb 9.5 L Hct 28.5 L MCV 91 MCH 31 MCHC 33 RDW 14.3 Plt Count 85 L Lymph % (Auto) 11.4 L [place] % (Auto) 5.9 Eos % (Auto) 3.2 Baso % (Auto) 0.1 Lymph # 1.5 [place] # 0.8 Eos # 0.4 Baso # 0.0 Seg Neutrophils % 79.4 H Seg Neutrophils # 10.6 H Urine Color Yellow Urine Turbidity Clear Urine pH 6.0 Ur Specific [place] 1.010 Urine Protein <15 mg/dl Urine Glucose (UA) Neg Urine Ketones Neg Urine Blood Mod Urine Nitrite Neg Urine Bilirubin Neg Urine Urobilinogen < 2.0 Ur Leukocyte Esterase Sm Urine WBC (Auto) 7.0 H Urine RBC (Auto) 5.0 Urine Bacteria (Auto) 1+
[2017-11-11 14:09] LABS: Creatinine,Urine 29.2 mg/dL (0.1-20.0)
--- NOTE | 2017-11-11 14:48 | Progress Note ---
Assessment and Plan - Patient Problems (1) Acute kidney failure with tubular necrosis Current Visit: Yes Status: Acute Plan to address problem: Ischemic Acute tubular necrosis secondary to hypotension. No labs drawn today. Improving urine output. Follow-up electrolytes and renal function. (2) Acute blood loss anemia Current Visit: Yes Status: Acute Plan to address problem: Follow-up hemoglobin (3) Acute respiratory failure with hypoxia Current Visit: Yes Status: Acute Plan to address problem: Resolved (4) Hyperkalemia Current Visit: Yes Status: Acute Plan to address problem: Improved (5) Metabolic acidosis Current Visit: Yes Status: Acute Plan to address problem: Improving Subjective Date of service: 11/11/17 Principal diagnosis: Hemrrohagic shock; DIC; post hemorrhage Interval history: Patient seen sitting in a chair. She is about to be wheeled to the mother-baby unit. She has no complaints. No shortness of breath at rest. No nausea or vomiting. Objective - Exam Narrative Exam: Young -[place] female sitting in wheelchair in no acute distress HEENT: NCAT, pale oral mucous membrane Neck: Supple, no venous distention CVS: S1S2 RRR with no murmur, rub or gallop Chest: Clear to auscultation but breath sounds diminished in lower zones Abdomen: Protuberant, soft, Extremities: Mild edema Skin no rash, warm and dry Neuro: Awake, looks dull, no focal deficits - Vital Signs Vital signs: Vital Signs - 12hr 11/11/17 11/11/17 11/11/17 02:45 03:00 03:15 Temperature Pulse Rate 80 92 H 78 Pulse Rate [ Right Dorsalis Pedis] Pulse Rate [ Right Radial] Respiratory 18 21 12 Rate Blood Pressure 117/68 119/74 119/74 O2 Sat by Pulse 99 99 99 Oximetry 11/11/17 11/11/17 11/11/17 03:31 03:45 03:51 Temperature Pulse Rate 77 77 76 Pulse Rate [ Right Dorsalis Pedis] Pulse Rate [ Right Radial] Respiratory 11 L 12 Rate Blood Pressure 119/74 119/74 O2 Sat by Pulse 99 99 Oximetry 11/11/17 11/11/17 11/11/17 03:52 04:00 04:15 Temperature Pulse Rate 68 96 H Pulse Rate [ 68 Right Dorsalis Pedis] Pulse Rate [ 68 Right Radial] Respiratory 12 19 Rate Blood Pressure 124/81 124/81 O2 Sat by Pulse 100 92 Oximetry 11/11/17 11/11/17 11/11/17 04:31 04:45 05:01 Temperature Pulse Rate 84 84 82 Pulse Rate [ Right Dorsalis Pedis] Pulse Rate [ Right Radial] Respiratory 14 20 17 Rate Blood Pressure 124/81 124/81 124/81 O2 Sat by Pulse 93 93 95 Oximetry 11/11/17 11/11/17 11/11/17 05:15 05:31 05:45 Temperature Pulse Rate 81 84 77 Pulse Rate [ Right Dorsalis Pedis] Pulse Rate [ Right Radial] Respiratory 12 13 12 Rate Blood Pressure 114/82 114/82 114/82 O2 Sat by Pulse 99 99 99 Oximetry 11/11/17 11/11/17 11/11/17 05:52 06:02 06:16 Temperature Pulse Rate 83 70 Pulse Rate [ 68 Right Dorsalis Pedis] Pulse Rate [ 72 Right Radial] Respiratory 11 L 15 Rate Blood Pressure O2 Sat by Pulse 99 100 Oximetry 11/11/17 11/11/17 11/11/17 06:30 06:46 07:00 Temperature Pulse Rate 80 82 102 H Pulse Rate [ Right Dorsalis Pedis] Pulse Rate [ Right Radial] Respiratory 15 16 13 Rate Blood Pressure 113/80 113/80 118/79 O2 Sat by Pulse 100 100 99 Oximetry 11/11/17 11/11/17 11/11/17 07:16 07:30 07:46 Temperature Pulse Rate 85 100 H 82 Pulse Rate [ Right Dorsalis Pedis] Pulse Rate [ Right Radial] Respiratory 13 13 15 Rate Blood Pressure 118/79 118/79 118/79 O2 Sat by Pulse 99 98 96 Oximetry 11/11/17 11/11/17 11/11/17 07:51 08:00 08:16 Temperature 97.9 F Pulse Rate 82 82 Pulse Rate [ Right Dorsalis Pedis] Pulse Rate [ Right Radial] Respiratory 16 15 Rate Blood Pressure 124/84 124/84 O2 Sat by Pulse 94 97 96 Oximetry 11/11/17 11/11/17 11/11/17 08:30 08:46 09:00 Temperature Pulse Rate 82 87 82 Pulse Rate [ Right Dorsalis Pedis] Pulse Rate [ Right Radial] Respiratory 14 16 14 Rate Blood Pressure 124/84 124/84 133/101 O2 Sat by Pulse 94 94 94 Oximetry 11/11/17 11/11/1718 09:16 09:30 09:46 Temperature Pulse Rate 103 H 80 81 Pulse Rate [ Right Dorsalis Pedis] Pulse Rate [ Right Radial] Respiratory 24 15 14 Rate Blood Pressure 133/101 133/101 133/101 O2 Sat by Pulse 88 97 96 Oximetry 11/11/17 11/11/17 11/11/17 10:00 10:16 10:30 Temperature Pulse Rate 85 84 81 Pulse Rate [ Right Dorsalis Pedis] Pulse Rate [ Right Radial] Respiratory 18 14 16 Rate Blood Pressure 126/82 126/82 126/82 O2 Sat by Pulse 97 94 98 Oximetry 11/11/17 11/11/17 11/11/17 10:46 11:00 11:16 Temperature Pulse Rate 90 98 H 87 Pulse Rate [ Right Dorsalis Pedis] Pulse Rate [ Right Radial] Respiratory 21 20 19 Rate Blood Pressure 126/82 125/91 125/91 O2 Sat by Pulse 93 92 97 Oximetry 11/11/17 11/11/17 11/11/17 11:30 11:46 12:00 Temperature Pulse Rate 79 78 96 H Pulse Rate [ Right Dorsalis Pedis] Pulse Rate [ Right Radial] Respiratory 15 16 14 Rate Blood Pressure 125/91 125/91 125/95 O2 Sat by Pulse 98 99 96 Oximetry 11/11/17 11/11/17 11/11/17 12:16 12:21 12:30 Temperature 98.2 F Pulse Rate 99 H 86 Pulse Rate [ Right Dorsalis Pedis] Pulse Rate [ Right Radial] Respiratory 18 19 Rate Blood Pressure 125/95 125/95 O2 Sat by Pulse 94 93 Oximetry 11/11/17 11/11/17 11/11/17 12:46 13:00 13:16 Temperature Pulse Rate 85 93 H 84 Pulse Rate [ Right Dorsalis Pedis] Pulse Rate [ Right Radial] Respiratory 16 16 17 Rate Blood Pressure 125/95 125/95 125/95 O2 Sat by Pulse 93 94 94 Oximetry - Lab 11/11/17 04:25 11/10/17 05:23 Most recent lab results Calcium 6.2 mg/dL (8.4-10.2) L 11/10/17 05:23 Urine Creatinine 29.2 mg/dL (0.1-20.0) H 11/10/17 13:14 Urine Total Protein 10 mg/dL (5-11.8) 11/10/17 13:14
[2017-11-11 17:24] LABS: Calcium 6.7 mg/dL (8.4-10.2)
--- NOTE | 2017-11-11 18:54 | Progress Note ---
Assessment and Plan Acute Hypoxemic Respiratory Failure s/p MVS < 96 hours Aspiration Pneumonia (HCAP) vs Pulmonary Edema Hemorrhagic shock Post hemorrhage Leucocytosis Pulmonary Edema vs Aspiration pneumonia - follow 2D ECHO to r/o significant chris- cardiomyopathy - get 2 sets of blood cultures re: persistent leucocytosis - prn NIPPV for increased work of breathing - conservative volume management at this point - Massive transfusion protocol followed (repleted calcium, monitor for hyperkalemia) - discontinue brewer catheter if OK with attending - discontinued femoral CVL - consider IR for possible pelvic artery embolization if bleeding persist's s/p hysterectomy - continue other care per attending / other consultants - ok to transfer out of ICU ..... 35' Subjective Date of service: 11/11/17 Principal diagnosis: Hemrrohagic shock; DIC; post hemorrhage Interval history: Patient is seen today for: Hemrrohagic shock; DIC; post hemorrhage Seen and examined at bedside; 24hour events reviewed; nursing and respiratory care staff consulted; no adverse overnight events reported to me; doing better; Objective Vital Signs - 12hr 11/11/17 11/11/17 11/11/17 07:00 07:16 07:30 Temperature Pulse Rate 102 H 85 100 H Respiratory 13 13 13 Rate Blood Pressure 118/79 118/79 118/79 Blood Pressure [Left] O2 Sat by Pulse 99 99 98 Oximetry 11/11/17 11/11/17 11/11/17 07:46 07:51 08:00 Temperature 97.9 F Pulse Rate 82 82 Respiratory 15 16 Rate Blood Pressure 118/79 124/84 Blood Pressure [Left] O2 Sat by Pulse 96 94 97 Oximetry 11/11/17 11/11/17 11/11/17 08:16 08:30 08:46 Temperature Pulse Rate 82 82 87 Respiratory 15 14 16 Rate Blood Pressure 124/84 124/84 124/84 Blood Pressure [Left] O2 Sat by Pulse 96 94 94 Oximetry 11/11/17 11/11/17 11/11/17 09:00 09:16 09:30 Temperature Pulse Rate 82 103 H 80 Respiratory 14 24 15 Rate Blood Pressure 133/101 133/101 133/101 Blood Pressure [Left] O2 Sat by Pulse 94 88 97 Oximetry 11/11/17 11/11/17 11/11/17 09:46 10:00 10:16 Temperature Pulse Rate 81 85 84 Respiratory 14 18 14 Rate Blood Pressure 133/101 126/82 126/82 Blood Pressure [Left] O2 Sat by Pulse 96 97 94 Oximetry 11/11/17 11/11/17 11/11/17 10:30 10:46 11:00 Temperature Pulse Rate 81 90 98 H Respiratory 16 21 20 Rate Blood Pressure 126/82 126/82 125/91 Blood Pressure [Left] O2 Sat by Pulse 98 93 92 Oximetry 11/11/17 11/11/17 11/11/17 11:16 11:30 11:46 Temperature Pulse Rate 87 79 78 Respiratory 19 15 16 Rate Blood Pressure 125/91 125/91 125/91 Blood Pressure [Left] O2 Sat by Pulse 97 98 99 Oximetry 11/11/17 11/11/17 11/11/17 12:00 12:16 12:21 Temperature 98.2 F Pulse Rate 96 H 99 H Respiratory 14 18 Rate Blood Pressure 125/95 125/95 Blood Pressure [Left] O2 Sat by Pulse 96 94 Oximetry 11/11/17 11/11/17 11/11/17 12:30 12:46 13:00 Temperature Pulse Rate 86 85 93 H Respiratory 19 16 16 Rate Blood Pressure 125/95 125/95 125/95 Blood Pressure [Left] O2 Sat by Pulse 93 93 94 Oximetry 11/11/17 11/11/17 11/11/17 13:16 13:30 13:46 Temperature Pulse Rate 84 90 105 H Respiratory 17 16 22 Rate Blood Pressure 125/95 125/95 125/95 Blood Pressure [Left] O2 Sat by Pulse 94 95 93 Oximetry 11/11/17 11/11/17 11/11/17 14:00 14:16 14:30 Temperature Pulse Rate 88 91 H 84 Respiratory 13 17 14 Rate Blood Pressure 137/97 137/97 137/97 Blood Pressure [Left] O2 Sat by Pulse 93 92 Oximetry 11/11/17 15:15 Temperature 98.3 F Pulse Rate 86 Respiratory 20 Rate Blood Pressure Blood Pressure 121/81 [Left] O2 Sat by Pulse 91 Oximetry Constitutional: no acute distress, alert Eyes: non-icteric ENT: oropharynx moist, other (extubated) Neck: supple, no lymphadenopathy, no JVD, other (no thyromegaly) Effort: mildly labored Ascultation: Bilateral: clear, diminished breath sounds, rales (bases) Percussion: Bilateral: not dull Cardiovascular: regular rate and rhythm, other (no murmurs, no gallops or rubs) Gastrointestinal: normoactive bowel sounds, soft, non-tender, tender, other (ADRIEN drain in place, clean dry abdominal dressing) Integumentary: normal Extremities: no cyanosis, no edema, pulses normal, no ischemia or petechiae Neurologic: normal mental status, non-focal exam, pupils equal and round, motor strength normal and Psychiatric: mood appropriate, affect normal CBC and BMP: 11/11/17 04:25 11/11/17 16:44 ABG, PT/INR, D-dimer: ABG POC ABG pH 7.372 (7.35-7.45) 11/08/17 05:39 POC ABG pCO2 23.4 (35-45) L 11/08/17 05:39 POC ABG pO2 246 (80-105) H 11/08/17 05:39 POC ABG HCO3 13.6 11/08/17 05:39 POC ABG Total CO2 14 11/08/17 05:39 POC ABG O2 Sat 100 11/08/17 05:39 PT/INR, D-dimer PT 16.1 Sec. (12.2-14.9) H 11/09/17 10:43 INR 1.22 (0.87-1.13) H 11/09/17 10:43 D-Dimer > 33342 ng/mlDDU (0-234) H 11/07/17 15:30 Abnormal lab findings: Abnormal Labs 11/06/17 11/06/17 11/07/17 16:00 16:00 14:27 WBC RBC Hgb Hct MCHC Plt Count Lymph % (Auto) Morrow % (Auto) Morrow # Seg Neutrophils % Seg Neuts % (Manual) Lymphocytes % (Manual) Seg Neutrophils # Seg Neutrophils # Man Lymphocytes # (Manual) PT INR APTT Fibrinogen D-Dimer POC ABG pH 7.067 L POC ABG pCO2 70.3 H POC ABG pO2 24 L Sodium Potassium Chloride Carbon Dioxide BUN Creatinine 0.4 L Glucose Lactic Acid Calcium Total Bilirubin AST ALT Lactate Dehydrogenase 192 H C-Reactive Protein Total Protein Albumin Urine WBC (Auto) Urine Creatinine Crossmatch See Detail 11/07/17 11/07/17 11/07/17 15:30 15:30 15:30 WBC 21.7 H RBC 1.96 L Hgb 6.1 L D Hct 18.0 L* D MCHC Plt Count 125 L Lymph % (Auto) Morrow % (Auto) Morrow # Seg Neutrophils % Seg Neuts % (Manual) 95.5 H Lymphocytes % (Manual) 1.5 L Seg Neutrophils # Seg Neutrophils # Man 20.7 H Lymphocytes # (Manual) 0.3 L PT 65.9 H INR 7.01 H* APTT 126.6 H* Fibrinogen > 1500 H D-Dimer > 44206 H POC ABG pH POC ABG pCO2 POC ABG pO2 Sodium Potassium Chloride 107.1 H Carbon Dioxide 18 L BUN Creatinine 0.6 L Glucose 106 H Lactic Acid Calcium 6.5 L Total Bilirubin 1.50 H AST ALT 6 L Lactate Dehydrogenase C-Reactive Protein Total Protein 3.2 L Albumin 1.9 L Urine WBC (Auto) Urine Creatinine Crossmatch 11/07/17 11/07/17 11/07/17 18:35 19:23 19:23 WBC 23.9 H RBC 2.10 L Hgb 6.5 L Hct 19.9 L* MCHC Plt Count 112 L Lymph % (Auto) 6.8 L [place]row % (Auto) 10.3 H [place]row # 2.5 H Seg Neutrophils % 82.0 H Seg Neuts % (Manual) 81.5 H Lymphocytes % (Manual) 2.5 L Seg Neutrophils # 19.6 H Seg Neutrophils # Man 19.5 H Lymphocytes # (Manual) 0.6 L PT 22.8 H INR 1.88 H APTT 52.9 H Fibrinogen D-Dimer POC ABG pH POC ABG pCO2 POC ABG pO2 Sodium Potassium Chloride Carbon Dioxide BUN Creatinine Glucose Lactic Acid Calcium Total Bilirubin AST ALT Lactate Dehydrogenase C-Reactive Protein Total Protein Albumin Urine WBC (Auto) Urine Creatinine Crossmatch See Detail 11/07/17 11/07/17 11/07/17 19:23 19:23 19:23 WBC RBC Hgb Hct MCHC Plt Count Lymph % (Auto) Morrow % (Auto) [place]row # Seg Neutrophils % Seg Neuts % (Manual) Lymphocytes % (Manual) Seg Neutrophils # Seg Neutrophils # Man Lymphocytes # (Manual) PT INR APTT Fibrinogen D-Dimer POC ABG pH POC ABG pCO2 POC ABG pO2 Sodium Potassium Chloride 109.3 H Carbon Dioxide 16 L BUN Creatinine Glucose 151 H Lactic Acid 7.40 H* Calcium 5.4 L* D Total Bilirubin AST ALT Lactate Dehydrogenase 235 H C-Reactive Protein Total Protein Albumin Urine WBC (Auto) Urine Creatinine Crossmatch 11/08/17 11/08/17 11/08/17 05:39 06:30 06:30 WBC 24.0 H RBC 2.27 L Hgb 7.0 L Hct 21.2 L MCHC Plt Count 73 L Lymph % (Auto) Morrow % (Auto) Morrow # Seg Neutrophils % Seg Neuts % (Manual) Lymphocytes % (Manual) Seg Neutrophils # Seg Neutrophils # Man Lymphocytes # (Manual) PT INR APTT Fibrinogen D-Dimer POC ABG pH POC ABG pCO2 23.4 L POC ABG pO2 246 H Sodium Potassium 7.0 H* D Chloride 113.5 H Carbon Dioxide 14 L BUN 24 H Creatinine 1.9 H D Glucose 139 H Lactic Acid Calcium 5.6 L* Total Bilirubin AST ALT Lactate Dehydrogenase C-Reactive Protein Total Protein Albumin Urine WBC (Auto) Urine Creatinine Crossmatch 11/08/17 11/08/17 11/08/17 12:01 12:01 21:09 WBC 15.9 H RBC 1.26 L Hgb 3.9 L* D Hct 11.6 L* D MCHC Plt Count 64 L Lymph % (Auto) Morrow % (Auto) Morrow # Seg Neutrophils % Seg Neuts % (Manual) Lymphocytes % (Manual) Seg Neutrophils # Seg Neutrophils # Man Lymphocytes # (Manual) PT 18.0 H INR 1.40 H APTT 37.7 H Fibrinogen D-Dimer POC ABG pH POC ABG pCO2 POC ABG pO2 Sodium 146 H Potassium Chloride 115.2 H Carbon Dioxide 16 L BUN 27 H Creatinine 2.2 H Glucose 101 H Lactic Acid Calcium 6.4 L Total Bilirubin AST 88 H ALT Lactate Dehydrogenase C-Reactive Protein Total Protein 3.1 L Albumin 1.8 L Urine WBC (Auto) Urine Creatinine Crossmatch 11/09/17 11/09/17 11/09/17 09:36 09:36 10:43 WBC 15.7 H RBC 2.24 L Hgb 6.8 L Hct 20.3 L D MCHC Plt Count 57 L Lymph % (Auto) 7.7 L Morrow % (Auto) Morrow # 1.0 H Seg Neutrophils % 85.5 H Seg Neuts % (Manual) Lymphocytes % (Manual) Seg Neutrophils # 13.4 H Seg Neutrophils # Man Lymphocytes # (Manual) PT 16.1 H INR 1.22 H APTT Fibrinogen D-Dimer POC ABG pH POC ABG pCO2 POC ABG pO2 Sodium Potassium Chloride 107.9 H Carbon Dioxide 19 L BUN 37 H Creatinine 3.7 H D Glucose 110 H Lactic Acid Calcium 6.2 L Total Bilirubin AST ALT Lactate Dehydrogenase C-Reactive Protein Total Protein Albumin Urine WBC (Auto) Urine Creatinine Crossmatch 11/10/17 11/10/17 11/10/17 05:23 05:23 05:23 WBC 17.4 H RBC 2.93 L Hgb 9.1 L Hct 25.8 L MCHC 35 H Plt Count 60 L Lymph % (Auto) 6.9 L Morrow % (Auto) Morrow # Seg Neutrophils % 87.3 H Seg Neuts % (Manual) Lymphocytes % (Manual) Seg Neutrophils # 15.2 H Seg Neutrophils # Man Lymphocytes # (Manual) PT INR APTT Fibrinogen D-Dimer POC ABG pH POC ABG pCO2 POC ABG pO2 Sodium Potassium Chloride Carbon Dioxide 19 L BUN 37 H Creatinine 4.1 H Glucose 101 H Lactic Acid Calcium 6.2 L Total Bilirubin AST ALT Lactate Dehydrogenase C-Reactive Protein 4.70 H Total Protein Albumin Urine WBC (Auto) Urine Creatinine Crossmatch 11/10/17 11/10/17 11/11/17 13:14 13:14 04:25 WBC 13.4 H RBC 3.13 L Hgb 9.5 L Hct 28.5 L MCHC Plt Count 85 L Lymph % (Auto) 11.4 L Morrow % (Auto) Morrow # Seg Neutrophils % 79.4 H Seg Neuts % (Manual) Lymphocytes % (Manual) Seg Neutrophils # 10.6 H Seg Neutrophils # Man Lymphocytes # (Manual) PT INR APTT Fibrinogen D-Dimer POC ABG pH POC ABG pCO2 POC ABG pO2 Sodium Potassium Chloride Carbon Dioxide BUN Creatinine Glucose Lactic Acid Calcium Total Bilirubin AST ALT Lactate Dehydrogenase C-Reactive Protein Total Protein Albumin Urine WBC (Auto) 7.0 H Urine Creatinine 29.2 H Crossmatch 11/11/17 16:44 WBC RBC Hgb Hct MCHC Plt Count Lymph % (Auto) Morrow % (Auto) Morrow # Seg Neutrophils % Seg Neuts % (Manual) Lymphocytes % (Manual) Seg Neutrophils # Seg Neutrophils # Man Lymphocytes # (Manual) PT INR APTT Fibrinogen D-Dimer POC ABG pH POC ABG pCO2 POC ABG pO2 Sodium Potassium Chloride Carbon Dioxide 19 L BUN 35 H Creatinine 4.4 H Glucose Lactic Acid Calcium 6.7 L Total Bilirubin AST ALT Lactate Dehydrogenase C-Reactive Protein Total Protein Albumin Urine WBC (Auto) Urine Creatinine Crossmatch Allied health notes reviewed: nursing
[2017-11-11] MEDS ORDERED: MILK OF MAGNESIA PO PRN (22:00)
[2017-11-12 00:10] LABS: Hematocrit 27.2 % (30.3-42.9); Hemoglobin 9.2 gm/dl (10.1-14.3)
[2017-11-12] MEDS: NACL 0.9% 1000 ML 1,000 ML IV SCH ×2 (00:25→16:58)
[2017-11-12] MEDS: PERCOCET 5/325 PO PRN ×2 (02:47→09:37)
[2017-11-12] MEDS: ZOSYN/NS 2.25 GM/50ML 2.25 GM/50 ML BAG IV SCH ×3 (06:08→22:20)
--- NOTE | 2017-11-12 08:31 | XRay Report ---
FINAL REPORT EXAM: XR CHEST 1V AP HISTORY: pulmonary edema TECHNIQUE: AP portable view(s) of the chest obtained. PRIORS: 11/09/[address] abdomen and pelvis FINDINGS: No mediastinal shift. Cardiac silhouette is not enlarged. No pneumothorax. Trace pleural effusions. Ill-defined bibasilar opacities. No acute skeletal finding. IMPRESSION: Trace pleural effusions with bibasilar atelectasis.
[2017-11-12] MEDS: PEPCID PO SCH (09:37)
[2017-11-12 10:30] LABS: Basophils % (Auto) 0.1 % (0.0-1.8); Eosinophils # (Auto) 0.4 K/mm3 (0.0-0.4); Eosinophils % (Auto) 2.8 % (0.0-4.3); Hematocrit 30.7 % (30.3-42.9); Hemoglobin 10.6 gm/dl (10.1-14.3); Lymphocytes # (Auto) 1.1 K/mm3 (1.2-5.4); Lymphocytes % (Auto) 8.8 % (13.4-35.0); Mean Corpuscular HGB Conc 35 % (30-34); Mean Corpuscular Hemoglobin 31 pg (28-32); Mean Corpuscular Volume 91 fl (79-97); Monocytes # (Auto) 0.8 K/mm3 (0.0-0.8); Monocytes % (Auto) 6.3 % (0.0-7.3); Platelet Count 133 K/mm3 (140-440); Red Blood Count 3.39 M/mm3 (3.65-5.03); Red Cell Distribution Width 14.4 % (13.2-15.2)
[2017-11-12 10:51] LABS: Calcium 6.7 mg/dL (8.4-10.2)
[2017-11-12] MEDS ORDERED: BOOSTRIX IM ONE (11:38)
[2017-11-12] MEDS ORDERED: M-M-R II VACCINE SUB-Q ONE (11:38)
[2017-11-12] MEDS: SUBLIMAZE IV PRN ×5 (12:01→22:42)
[2017-11-12] MEDS: Centrum Liq PO SCH (12:03)
--- NOTE | 2017-11-12 14:36 | Progress Note ---
Assessment and Plan - Patient Problems (1) Acute kidney failure with tubular necrosis Current Visit: Yes Status: Acute Plan to address problem: Ischemic Acute tubular necrosis secondary to hypotension. Improving urine output but really indices still worsening. We'll get 24-hour urine for creatinine clearance. Follow-up electrolytes and renal function. If continues to worsen, unfortunately may need dialysis. Hopefully creatinine peaks and starts improving in next 24-48 hours. Discussed with patient and Dr. Mai at the bedside (2) Acute blood loss anemia Current Visit: Yes Status: Acute Plan to address problem: Follow-up hemoglobin (3) Acute respiratory failure with hypoxia Current Visit: Yes Status: Acute Plan to address problem: Resolved (4) Hyperkalemia Current Visit: Yes Status: Acute Plan to address problem: Improved (5) Metabolic acidosis Current Visit: Yes Status: Acute Plan to address problem: Improving (6) Hypocalcemia Current Visit: Yes Status: Acute Plan to address problem: Secondary to massive transfusion. Albumin is also low. Check ionized calcium in the morning. Subjective Date of service: 11/12/17 Principal diagnosis: Hemrrohagic shock; DIC; post hemorrhage Interval history: Patient seen lying in bed in Mother baby unit. Plate Keeper Dr. Mai in the room. Patient has no complaints. No chest pain or shortness of breath. No nausea or vomiting. Ambulating with PT. Objective - Exam Narrative Exam: Young -[place] female lying in bed in no acute distress HEENT: NCAT, pale oral mucous membrane Neck: Supple, no venous distention CVS: S1S2 RRR with no murmur, rub or gallop Chest: Clear to auscultation but breath sounds diminished in lower zones Abdomen: Protuberant, soft, Extremities: Mild edema Skin no rash, warm and dry Neuro: Awake, no focal deficits - Vital Signs Vital signs: Vital Signs - 12hr 11/12/17 11/12/17 11/12/17 04:00 06:06 08:21 Temperature 98.0 F 98.2 F 98.1 F Pulse Rate 89 80 85 Respiratory 20 20 20 Rate Blood Pressure 134/89 Blood Pressure 127/86 127/86 [Left] O2 Sat by Pulse 96 98 99 Oximetry 11/12/17 11:27 Temperature 98.5 F Pulse Rate 85 Respiratory 20 Rate Blood Pressure 126/88 Blood Pressure [Left] O2 Sat by Pulse 100 Oximetry - Lab 11/12/17 Unknown 11/12/17 09:23 Most recent lab results Calcium 6.7 mg/dL (8.4-10.2) L 11/12/17 09:23 Urine Creatinine 29.2 mg/dL (0.1-20.0) H 11/10/17 13:14 Urine Total Protein 10 mg/dL (5-11.8) 11/10/17 13:14
--- NOTE | 2017-11-12 20:19 | Progress Note ---
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 patient was sent in by Dr. Lowe. She is late to care with hx of trich treated in this . Patient reports: appetite normal, voiding normally, pain well controlled, ambulating normally : doing well Objective - Vital Signs Latest vital signs: Vital Signs Temp Pulse Resp BP BP Pulse Ox 11/12/17 16:45 98.9 F 89 20 120/84 100 11/12/17 11:27 98.5 F 85 20 126/88 100 11/12/17 08:21 98.1 F 85 20 134/89 99 11/12/17 06:06 98.2 F 80 20 127/86 98 11/12/17 04:00 98.0 F 89 20 127/86 96 11/12/17 02:10 98.4 F 76 20 136/84 98 11/12/17 00:00 98.6 F 86 20 128/86 93 11/11/17 22:00 98.9 F 91 H 20 122/87 95 Intake and Output 11/12/17 11/12/17 11/12/17 07:59 15:59 23:59 Intake Total 290 1240 200 Output Total 201 1850 1100 Balance 28 -720 -900 Intake: IV 50 1000 NaCl 0.9% 1000 ml 1,000 1000 ml @ 75 mls/hr IV DIRECT GERRY Rx#:[id number] ZOSYN/NS 2.25 GM/50ML 2. 50 25 gm In 50 ml @ 100 mls/ hr IV Q8HR [facility] Rx#: [id number] Oral 240 200 Intake, Free Water 240 Output: Urine 200 1850 1100 Indwelling Catheter 200 1850 1100 Stool 1 Other: Total, Intake Amount 240 200 Total, Output Amount 200 1150 100 - Exam Breasts: Present: normal Cardiovascular: Present: Regular rate, Normal S1 Lungs: Present: Clear to auscultation, Normal air movement Abdomen: Present: normal appearance, soft, normal bowel sounds. Absent: distention, tenderness, guarding Vulva: both: normal Extremities: Present: normal Deep Tendon Reflex Grade: Normal +2 Incision: Present: normal, dry, intact - Labs Labs: Abnormal lab results 11/12/17 11/12/17 11/12/17 Range/Units 09:23 09:28 Unknown WBC 12.8 H (4.5-11.0) K/mm3 RBC 3.39 L (3.65-5.03) M/mm3 Hgb 9.2 L (10.1-14.3) gm/dl Hct 27.2 L (30.3-42.9) % MCHC 35 H (30-34) % Plt Count 133 L (140-440) K/mm3 Lymph % (Auto) 8.8 L (13.4-35.0) % Lymph # 1.1 L (1.2-5.4) K/mm3 Seg Neutrophils % 82.0 H (40.0-70.0) % Seg Neutrophils # 10.4 H (1.8-7.7) K/mm3 Carbon Dioxide 20 L (22-30) mmol/L BUN 34 H (7-17) mg/dL Creatinine 4.6 H (0.7-1.2) mg/dL Calcium 6.7 L (8.4-10.2) mg/dL
[2017-11-13] MEDS: SUBLIMAZE IV PRN ×3 (01:38→07:58)
[2017-11-13] MEDS: NACL 0.9% 1000 ML 1,000 ML IV SCH ×2 (04:58→19:34)
[2017-11-13] MEDS: ZOSYN/NS 2.25 GM/50ML 2.25 GM/50 ML BAG IV SCH (05:37)
[2017-11-13 05:38] LABS: Basophils % (Auto) 0.1 % (0.0-1.8); Eosinophils # (Auto) 0.3 K/mm3 (0.0-0.4); Eosinophils % (Auto) 1.9 % (0.0-4.3); Hematocrit 29.8 % (30.3-42.9); Hemoglobin 10.4 gm/dl (10.1-14.3); Lymphocytes # (Auto) 1.1 K/mm3 (1.2-5.4); Lymphocytes % (Auto) 6.5 % (13.4-35.0); Mean Corpuscular HGB Conc 35 % (30-34); Mean Corpuscular Hemoglobin 32 pg (28-32); Mean Corpuscular Volume 90 fl (79-97); Monocytes # (Auto) 1.1 K/mm3 (0.0-0.8); Monocytes % (Auto) 6.3 % (0.0-7.3); Platelet Count 173 K/mm3 (140-440); Red Cell Distribution Width 14.3 % (13.2-15.2)
[2017-11-13 06:03] LABS: Calcium 6.5 mg/dL (8.4-10.2)
--- NOTE | 2017-11-13 08:05 | Progress Note ---
Assessment and Plan - Patient Problems (1) Acute kidney failure with tubular necrosis Current Visit: Yes Status: Acute Plan to address problem: Ischemic Acute tubular necrosis secondary to hypotension. Improving urine output and kidney indices are not improving. Follow-up 24-hour urine for creatinine clearance. Follow-up electrolytes and renal function. Hopefully continues to improve. Discussed with patient at the bedside (2) Acute blood loss anemia Current Visit: Yes Status: Acute Plan to address problem: Follow-up hemoglobin (3) Acute respiratory failure with hypoxia Current Visit: Yes Status: Acute Plan to address problem: Resolved (4) Hyperkalemia Current Visit: Yes Status: Acute Plan to address problem: Improved (5) Metabolic acidosis Current Visit: Yes Status: Acute Plan to address problem: Improving (6) Hypocalcemia Current Visit: Yes Status: Acute Plan to address problem: Secondary to massive transfusion. Albumin is also low. Follow-up ionized calcium this morning. Subjective Date of service: 11/13/17 Principal diagnosis: Hemrrohagic shock; DIC; post hemorrhage Interval history: Patient seen lying in bed in Mother baby unit. Patient has no complaints. Eating breakfast. No chest pain or shortness of breath. No nausea or vomiting. Objective - Exam Narrative Exam: Young -[place] female lying in bed in no acute distress HEENT: NCAT, pale oral mucous membrane Neck: Supple, no venous distention CVS: S1S2 RRR with no murmur, rub or gallop Chest: Clear to auscultation but breath sounds diminished in lower zones Abdomen: Protuberant, soft, Extremities: Mild edema Skin no rash, warm and dry Neuro: Awake, no focal deficits - Vital Signs Vital signs: Vital Signs - 12hr 11/12/17 11/12/17 11/12/17 20:45 21:15 21:26 Temperature 98.1 F Pulse Rate 91 H Respiratory 16 18 20 Rate Blood Pressure 132/86 [Left] O2 Sat by Pulse 96 Oximetry 11/12/17 11/12/17 11/13/17 22:42 23:12 01:20 Temperature 98.8 F Pulse Rate 85 Respiratory 20 18 20 Rate Blood Pressure 123/81 [Left] O2 Sat by Pulse 99 Oximetry 11/13/17 11/13/17 11/13/17 01:38 02:08 04:02 Temperature Pulse Rate Respiratory 20 18 20 Rate Blood Pressure [Left] O2 Sat by Pulse Oximetry 11/13/17 04:32 Temperature Pulse Rate Respiratory 18 Rate Blood Pressure [Left] O2 Sat by Pulse Oximetry - Lab 11/13/17 04:37 11/13/17 04:37 Most recent lab results Calcium 6.5 mg/dL (8.4-10.2) L 11/13/17 04:37 Phosphorus 5.50 mg/dL (2.5-4.5) H 11/13/17 04:37 Magnesium 1.50 mg/dL (1.7-2.3) L 11/13/17 04:37 Urine Creatinine 29.2 mg/dL (0.1-20.0) H 11/10/17 13:14 Urine Total Protein 10 mg/dL (5-11.8) 11/10/17 13:14
[2017-11-13 08:31] LABS: INR 0.94 (0.87-1.13)
--- NOTE | 2017-11-13 09:06 | Progress Note ---
Assessment and Plan A/P PPD6 POD6 /supracervical hysterectomy with hemorrhage and DIC Post operative hypoxemic resppiratory failure -Hemorrhagic shock -Massive blood transfusion -Metabolic acidosis -Acute kidney failure secondary to ATN -Sepsis -Hyperkalemia P: Continue supportive care Abdominal drain removed today Nephrology consult appreciated- collect 24 hr urine Monitor renal function ID consult for leukocytosis Subjective - Subjective Date of service: 11/13/17 Principal diagnosis: Hemrrohagic shock; DIC; post hemorrhage Interval history: No overnight events reported by nursing staff or patient. Very little drain output. Patient reports: appetite normal, flatus, bowel movement, no voiding normally ( brewer in place ), no ambulating normally (minimally ) [place]: doing well Objective - Vital Signs Latest vital signs: Vital Signs Temp Pulse Resp BP BP Pulse Ox 11/13/17 04:32 18 11/13/17 04:02 20 11/13/17 02:08 18 11/13/17 01:38 20 11/13/17 01:20 98.8 F 85 20 123/81 99 11/12/17 23:12 18 11/12/17 22:42 20 11/12/17 21:26 98.1 F 91 H 20 132/86 96 11/12/17 21:15 18 11/12/17 20:45 16 11/12/17 16:45 98.9 F 89 20 120/84 100 11/12/17 11:27 98.5 F 85 20 126/88 100 Intake and Output 11/12/17 11/13/17 11/13/17 22:59 06:59 14:59 Intake Total 250 900 Output Total 1100 Balance -850 900 Intake: IV 50 900 NaCl 0.9% 1000 ml 1,000 900 ml @ 75 mls/hr IV DIRECT GERRY Rx#:[id number] ZOSYN/NS 2.25 GM/50ML 2. 50 25 gm In 50 ml @ 100 mls/ hr IV Q8HR GERRY Rx#: [id number] Oral 200 Output: Urine 1100 Indwelling Catheter 1100 Other: Total, Intake Amount 200 Total, Output Amount 100 - Exam Breasts: Present: deferred Cardiovascular: Present: Regular rate Lungs: Present: Clear to auscultation Abdomen: Present: soft, other (drain to suction, empty ) Extremities: Present: normal Incision: Present: dressed (serosanguinous drainage; incision intact with italia ) - Labs Labs: Abnormal lab results 11/12/17 11/12/17 11/13/17 Range/Units 09:23 09:28 04:37 WBC 12.8 H 17.6 H (4.5-11.0) K/mm3 RBC 3.39 L 3.30 L (3.65-5.03) M/mm3 Hct 29.8 L (30.3-42.9) % MCHC 35 H 35 H (30-34) % Plt Count 133 L (140-440) K/mm3 Lymph % (Auto) 8.8 L 6.5 L (13.4-35.0) % Lymph # 1.1 L 1.1 L (1.2-5.4) K/mm3 [place] # 1.1 H (0.0-0.8) K/mm3 Seg Neutrophils % 82.0 H 85.2 H (40.0-70.0) % Seg Neutrophils # 10.4 H 15.0 H (1.8-7.7) K/mm3 Chloride (98-107) mmol/L Carbon Dioxide 20 L (22-30) mmol/L BUN 34 H (7-17) mg/dL Creatinine 4.6 H (0.7-1.2) mg/dL Calcium 6.7 L (8.4-10.2) mg/dL Phosphorus (2.5-4.5) mg/dL Magnesium (1.7-2.3) mg/dL 11/13/17 Range/Units 04:37 WBC (4.5-11.0) K/mm3 RBC (3.65-5.03) M/mm3 Hct (30.3-42.9) % MCHC (30-34) % Plt Count (140-440) K/mm3 Lymph % (Auto) (13.4-35.0) % Lymph # (1.2-5.4) K/mm3 [place] # (0.0-0.8) K/mm3 Seg Neutrophils % (40.0-70.0) % Seg Neutrophils # (1.8-7.7) K/mm3 Chloride 108.4 H (98-107) mmol/L Carbon Dioxide 18 L (22-30) mmol/L BUN 30 H (7-17) mg/dL Creatinine 4.0 H (0.7-1.2) mg/dL Calcium 6.5 L (8.4-10.2) mg/dL Phosphorus 5.50 H (2.5-4.5) mg/dL Magnesium 1.50 L (1.7-2.3) mg/dL
--- NOTE | 2017-11-13 09:55 | XRay Report ---
AP CHEST: HISTORY: Followup respiratory failure Bibasilar opacities have nearly resolved since 11/12/17. Minor opacity remaining at the left lung base which probably represents segmental atelectasis. Heart and mediastinal structures are within normal limits. Normal bony thorax. IMPRESSION: Unremarkable AP chest.
[2017-11-13] MEDS: PERCOCET 5/325 PO PRN ×4 (10:29→23:43)
[2017-11-13] MEDS: PEPCID PO SCH (10:30)
[2017-11-13] MEDS: Centrum Liq PO SCH (10:30)
--- NOTE | 2017-11-13 20:16 | Consultation ---
History of Present Illness - Reason for Consult Consult date: 11/13/17 leukocytosis Requesting physician: AMIRA VELASQUEZ - History of Present Illness 26 y/o female without any significant medical history, admitted on 11/06/17 with 40+1 weeks initially to labor and delivery. Initial temp 98.1, HR 103 , R 16, BP 122/66. WBC 7.8. Hg 13.6. Plat 218. WBC 7.8. Hg 13.6. Plt 218. Creat 0.4. Patient had an abnormal vaginal delivery. After delivery course was complicated by heavy, uncontrollable bleeding secondary to cervical laceration, patient underwent emergent hysterectomy/repair of cervical laceration. Course was complicated by hemorrahgic shock, requiring vasopressor, DIC. Patient was intubated, transferred to the ICU. WBC continues to increase. Creat 4. UA neg. CXR neg. CTA abdomen showed small amount of intramuscular hemorrhageat the rectus abdominalis muscle. Poorly defined collection located anterior to pelvic surgical packing material ?pelvic hematoma. Micro: Blood cx 11/10 ngtd Abx: none Past History Past Medical History: No medical history Past Surgical History: No surgical history Social history: no significant social history, single. denies: smoking, alcohol abuse, prescription drug abuse Family history: no significant family history Medications and Allergies Allergies Allergy/AdvReac Type Severity Reaction Status Date / Time No Known Allergies Allergy Unverified 11/06/17 15:33 Home Medications Medication Instructions Recorded Confirmed Last Taken Type Pnv No.95/Ferrous Fum/Folic AC 1 tab PO QDAY 11/06/17 11/06/17 11/05/17 History [ Vitamins Tablet] Active Meds: Active Medications Acetaminophen (Tylenol) 650 mg PO Q4H PRN PRN Reason: Pain MILD(1-3)/Fever >100.5/TANG Acetaminophen/Hydrocodone Bitart ([place] 5/325) 2 each PO Q6H PRN PRN Reason: Pain, Moderate (4-6) Bisacodyl (Dulcolax) 10 mg [place] BID PRN PRN Reason: Constipation Diphenhydramine HCl (Benadryl) 25 mg PO Q6H PRN PRN Reason: Itching Famotidine (Pepcid) 20 mg PO DAILY GERRY Last Admin: 11/13/17 10:30 Dose: 20 mg Fentanyl (Sublimaze) 50 mcg IV Q2H PRN PRN Reason: Pain , Severe (7-10) Last Admin: 11/13/17 07:58 Dose: 50 mcg Hydrophilic Ointment (Vaseline Lip Therapy) 1 applic TP Q2HR PRN PRN Reason: Dry Lips Sodium Chloride (Nacl 0.9% 1000 Ml) 1,000 mls @ 75 mls/hr IV DIRECT GERRY Last Admin: 11/13/17 19:34 Dose: 75 mls/hr Magnesium Hydroxide (Milk Of Magnesia) 30 ml PO HS PRN PRN Reason: Constipation Multi-Ingredient Ointment (Lansinoh) 1 applic TP PRN PRN PRN Reason: Sore Nipples Multivitamins (Centrum Liq) 5 ml PO QDAY [facility] Last Admin: 11/13/17 10:30 Dose: 5 ml Ondansetron HCl (Zofran) 4 mg IV Q8H PRN PRN Reason: Nausea And Vomiting Oxycodone/Acetaminophen (Percocet 5/325) 2 tab PO Q4H PRN PRN Reason: Pain, Moderate (4-6) Last Admin: 11/13/17 18:40 Dose: 2 tab Phenol (Chloraseptic) 1 spray MM PRN PRN PRN Reason: Sore Throat Last Admin: 11/09/17 22:10 Dose: 1 spray Promethazine HCl (Phenergan) 25 mg [place] Q6H PRN PRN Reason: Nausea And Vomiting Promethazine HCl (Phenergan) 25 mg PO Q6H PRN PRN Reason: Nausea And Vomiting Simethicone (Mylicon) 80 mg PO Q6H PRN PRN Reason: Gas pain Last Admin: 11/11/17 16:08 Dose: 80 mg Sodium Chloride (Sodium Chloride Flush Syringe 10 Ml) 10 ml IV PRN [facility] Witch [place]ud[place]/Glycerin (Tucks Pad) 1 each TP PRN PRN PRN Reason: Hemorrhoid/cleansing/soothing Review of Systems All systems: negative (as per HPI rest neg) Physical Examination - Physical Exam Narrative exam: Alert in NAD pleasant NC/AT VIVI clear OP Neck no LNs Lungs CTA preet CV RRR Abdomen soft TTP, surg wound with dressings Genital marked vulvar edema Ext no edema Skin no rash - Constitutional Vitals: Vital Signs Temp Pulse Resp BP Pulse Ox 97.9 F 85 20 127/79 98 11/13/17 18:37 11/13/17 18:37 11/13/17 18:37 11/13/17 18:37 11/13/17 08:45 Temperature -Last 24 Hours Temperature 97.9 F Temperature 99.5 F Temperature 99 F Temperature 98.8 F Temperature 98.1 F Results - Labs CBC & Chem 7: 11/13/17 04:37 11/13/17 04:37 Labs: Abnormal lab results 11/13/17 11/13/17 Range/Units 04:37 04:37 WBC 17.6 H (4.5-11.0) K/mm3 RBC 3.30 L (3.65-5.03) M/mm3 Hct 29.8 L (30.3-42.9) % MCHC 35 H (30-34) % Lymph % (Auto) 6.5 L (13.4-35.0) % Lymph # 1.1 L (1.2-5.4) K/mm3 [place] # 1.1 H (0.0-0.8) K/mm3 Seg Neutrophils % 85.2 H (40.0-70.0) % Seg Neutrophils # 15.0 H (1.8-7.7) K/mm3 Chloride 108.4 H (98-107) mmol/L Carbon Dioxide 18 L (22-30) mmol/L BUN 30 H (7-17) mg/dL Creatinine 4.0 H (0.7-1.2) mg/dL Calcium 6.5 L (8.4-10.2) mg/dL Phosphorus 5.50 H (2.5-4.5) mg/dL Magnesium 1.50 L (1.7-2.3) mg/dL Assessment and Plan Assessment: 1) SIRS: not present on admission, manifested by tachycardia, hypotension and leukocytosis; likely due to hemorrhagic shock +/- pelvic hematoma +/-vulvar edema -blood cx negative -UA neg -CXR neg 2) Hemorrhagic shock post 3) DIC 4) Pelvic hematoma: CTA abdomen shows poorly defined pelvic collection and hemorrhage in rectus abdominus muscle 5) ELÍAS 6) Severe vulvar edema/laceration ? infection Plan: -obtain repeat blood cx, UA -obtain CRP, procalcitonin -start unasyn -monitor leukocytosis, if not better consider repeat CT abdomen Thanks Gardenia Meeks MD
[2017-11-13 21:25] LABS: Creatinine 24 Hour,Urine 1.7 (0.8-2.8); Creatinine,Urine 32.4 mg/dL (0.1-20.0)
[2017-11-13] MEDS: UNASYN/NS 3 GM/100 ML 3 GM/100 ML BAG IV SCH (23:37)
[2017-11-14 04:37] LABS: Bilirubin,Urine NEG (Negative); Blood,Urine MOD (Negative); Color,Urine Straw (Yellow); Protein,Urine <15 mg/dL mg/dL (Negative); RBC,Urine < 1.0 /HPF (0.0-6.0); Urobilinogen,Urine < 2.0 mg/dL (<2.0)
[2017-11-14 05:33] LABS: Basophils % (Auto) 0.2 % (0.0-1.8); Eosinophils # (Auto) 0.5 K/mm3 (0.0-0.4); Hemoglobin 9.6 gm/dl (10.1-14.3); Lymphocytes # (Auto) 1.6 K/mm3 (1.2-5.4); Lymphocytes % (Auto) 9.3 % (13.4-35.0); Mean Corpuscular HGB Conc 34 % (30-34); Mean Corpuscular Hemoglobin 31 pg (28-32); Mean Corpuscular Volume 90 fl (79-97); Monocytes # (Auto) 1.4 K/mm3 (0.0-0.8); Platelet Count 230 K/mm3 (140-440); Red Blood Count 3.12 M/mm3 (3.65-5.03); Red Cell Distribution Width 14.2 % (13.2-15.2)
[2017-11-14] MEDS: NACL 0.9% 1000 ML 1,000 ML IV SCH ×2 (08:15→21:56)
[2017-11-14] MEDS: PERCOCET 5/325 PO PRN ×3 (08:29→18:43)
--- NOTE | 2017-11-14 08:44 | Progress Note ---
Assessment and Plan - Patient Problems (1) Acute blood loss anemia Current Visit: Yes Status: Acute (2) Acute kidney failure with tubular necrosis Current Visit: Yes Status: Acute Plan to address problem: nephrology has been consulted; awaiting clinical recommendation continue current management (3) Hemorrhagic shock Current Visit: Yes Status: Acute Subjective - Subjective Date of service: 11/14/17 Principal diagnosis: Hemrrohagic shock; DIC; post hemorrhage Interval history: Patient demonstrating significant clinical improvement. BUN/Creat remain elevated secondary acute renal shock as a result of the massive blood loss and replacement. Urine output continues to improve with clear kiersten urine. The patient is tolerating a regular diet. Leukocytosis slowly trending downward. Patient is currently afebrile. [place] remains in place. Patient reports: appetite normal, pain well controlled Objective - Vital Signs Latest vital signs: Vital Signs Temp Pulse Resp BP Pulse Ox 11/14/17 08:29 20 11/14/17 04:15 98.2 F 80 20 126/84 11/14/17 00:43 18 11/14/17 00:00 98.2 F 89 20 119/90 11/13/17 23:43 16 11/13/17 20:35 98.5 F 85 20 132/96 11/13/17 19:40 18 11/13/17 18:37 97.9 F 85 20 127/79 11/13/17 11:40 99.5 F 89 20 121/79 11/13/17 08:45 99 F 63 18 142/77 98 Intake and Output 11/13/17 11/14/17 11/14/17 22:59 06:59 14:59 Intake Total 1120 480 951.25 Output Total 300 2200 Balance 820 -1720 951.25 Intake: IV 1000 951.25 NaCl 0.9% 1000 ml 1,000 1000 951.25 ml @ 75 mls/hr IV DIRECT GERRY Rx#:[id number] Oral 120 480 Output: Urine 300 2200 Indwelling Catheter 300 2200 Other: Total, Intake Amount 120 240 Total, Output Amount 300 1000 - Exam Abdomen: Present: normal appearance - Labs Labs: Abnormal lab results 11/12/17 11/13/17 11/14/17 Range/Units 20:24 21:06 05:11 WBC 17.2 H (4.5-11.0) K/mm3 RBC 3.12 L (3.65-5.03) M/mm3 Hgb 9.6 L (10.1-14.3) gm/dl Hct 28.0 L (30.3-42.9) % Lymph % (Auto) 9.3 L (13.4-35.0) % [place] % (Auto) 8.0 H (0.0-7.3) % [place] # 1.4 H (0.0-0.8) K/mm3 Eos # 0.5 H (0.0-0.4) K/mm3 Seg Neutrophils % 79.5 H (40.0-70.0) % Seg Neutrophils # 13.7 H (1.8-7.7) K/mm3 C-Reactive Protein 9.30 H (0.00-1.30) mg/dL Urine Creatinine 32.4 H (0.1-20.0) mg/dL
--- NOTE | 2017-11-14 08:49 | XRay Report ---
AP CHEST: HISTORY: Followup respiratory failure Compared to 11/13/17. AP view of the chest demonstrates a normal mediastinal and cardiac contour with clear lungs and normal bony and soft tissue structures. IMPRESSION: Unremarkable AP chest.
[2017-11-14] MEDS: PEPCID PO SCH (10:44)
[2017-11-14] MEDS: Centrum Liq PO SCH (10:44)
[2017-11-14] MEDS: UNASYN/NS 3 GM/100 ML 3 GM/100 ML BAG IV SCH ×2 (11:41→21:58)
--- NOTE | 2017-11-14 14:22 | Progress Note ---
Assessment and Plan Assessment: 1) SIRS: not present on admission, manifested by tachycardia, hypotension and leukocytosis; likely due to hemorrhagic shock +/- pelvic hematoma +/-vulvar edema -blood cx negative -UA neg -CXR neg -CRP=4-->9 -repeat UA neg 2) Hemorrhagic shock post 3) DIC 4) Pelvic hematoma: CTA abdomen shows poorly defined pelvic collection and hemorrhage in rectus abdominus muscle 5) ELÍAS 6) Severe vulvar edema/laceration ? infection Plan: -f/u repeat blood cx -f/u procalcitonin -continue unasyn -monitor leukocytosis, if not better consider repeat CT abdomen / pelvis Discussed with Dr Mai Thanks Gardenia Meeks MD Subjective Date of service: 11/14/17 Principal diagnosis: Hemrrohagic shock; DIC; post hemorrhage Interval history: Feels better, Still vulvar pain and swelling. No fever. Micro: Blood cx 5/4 ngtd Blood cx 5/7 ngtd Objective - Exam Narrative Exam: Alert in NAD pleasant NC/AT VIVI clear OP Neck no LNs Lungs CTA preet CV RRR Abdomen soft TTP, surg wound with dressings Genital marked vulvar edema Ext no edema Skin no rash - Constitutional Vitals: Vital Signs Temp Pulse Resp BP Pulse Ox 98.5 F 79 18 124/81 97 11/14/17 12:39 11/14/17 12:39 11/14/17 12:39 11/14/17 12:39 11/14/17 12:39 Temperature -Last 24 Hours Temperature 98.5 F Temperature 98.3 F Temperature 98.2 F Temperature 98.2 F Temperature 98.5 F Temperature 97.9 F - Labs CBC & Chem 7: 11/14/17 05:11 11/13/17 04:37 Labs: Abnormal lab results 11/12/17 11/13/17 11/14/17 Range/Units 20:24 21:06 05:11 WBC 17.2 H (4.5-11.0) K/mm3 RBC 3.12 L (3.65-5.03) M/mm3 Hgb 9.6 L (10.1-14.3) gm/dl Hct 28.0 L (30.3-42.9) % Lymph % (Auto) 9.3 L (13.4-35.0) % [place] % (Auto) 8.0 H (0.0-7.3) % [place] # 1.4 H (0.0-0.8) K/mm3 Eos # 0.5 H (0.0-0.4) K/mm3 Seg Neutrophils % 79.5 H (40.0-70.0) % Seg Neutrophils # 13.7 H (1.8-7.7) K/mm3 C-Reactive Protein 9.30 H (0.00-1.30) mg/dL Urine Creatinine 32.4 H (0.1-20.0) mg/dL
[2017-11-14 15:56] LABS: Albumin 2.3 g/dL (3.9-5); Calcium 6.9 mg/dL (8.4-10.2)
[2017-11-14] MEDS: MYLICON PO PRN (21:57)
[2017-11-15] MEDS: PERCOCET 5/325 PO PRN ×3 (00:56→13:53)
[2017-11-15 03:36] LABS: Basophils % (Auto) 0.3 % (0.0-1.8); Eosinophils # (Auto) 0.6 K/mm3 (0.0-0.4); Eosinophils % (Auto) 3.5 % (0.0-4.3); Hematocrit 26.7 % (30.3-42.9); Hemoglobin 9.4 gm/dl (10.1-14.3); Lymphocytes # (Auto) 1.7 K/mm3 (1.2-5.4); Lymphocytes % (Auto) 10.1 % (13.4-35.0); Mean Corpuscular HGB Conc 35 % (30-34); Mean Corpuscular Hemoglobin 31 pg (28-32); Mean Corpuscular Volume 89 fl (79-97); Monocytes # (Auto) 1.3 K/mm3 (0.0-0.8); Monocytes % (Auto) 7.8 % (0.0-7.3); Platelet Count 305 K/mm3 (140-440); Red Blood Count 2.99 M/mm3 (3.65-5.03)
[2017-11-15 08:48] LABS: Basophils % (Auto) 0.2 % (0.0-1.8); Eosinophils # (Auto) 0.6 K/mm3 (0.0-0.4); Eosinophils % (Auto) 3.6 % (0.0-4.3); Hematocrit 27.7 % (30.3-42.9); Hemoglobin 9.5 gm/dl (10.1-14.3); Lymphocytes % (Auto) 6.6 % (13.4-35.0); Mean Corpuscular HGB Conc 34 % (30-34); Mean Corpuscular Hemoglobin 31 pg (28-32); Mean Corpuscular Volume 90 fl (79-97); Monocytes # (Auto) 1.1 K/mm3 (0.0-0.8); Monocytes % (Auto) 7.3 % (0.0-7.3); Platelet Count 355 K/mm3 (140-440); Red Blood Count 3.08 M/mm3 (3.65-5.03); Red Cell Distribution Width 14.1 % (13.2-15.2)
--- NOTE | 2017-11-15 08:55 | Progress Note ---
Assessment and Plan A/P PPD8 POD8 /supracervical hysterectomy with hemorrhage and DIC Post operative hypoxemic resppiratory failure -Hemorrhagic shock -Massive blood transfusion -Metabolic acidosis -Acute kidney failure secondary to ATN -Sepsis -Hyperkalemia P: Continue supportive care Increase frequency of physical therapy Change pain medication to [place] 7. 5 mg Begin discharge planning Subjective - Subjective Date of service: 11/15/17 Principal diagnosis: Hemrrohagic shock; DIC; post hemorrhage Interval history: No overnight events reported by nursing staff or patient. Patient reports: appetite normal, flatus, bowel movement, ambulating normally ( minimally) [place]: doing well Objective - Vital Signs Latest vital signs: Vital Signs Temp Pulse Resp BP BP Pulse Ox 11/15/17 05:52 18 11/15/17 04:25 98.7 F 87 20 129/80 11/15/17 00:59 98.8 F 85 20 119/81 11/15/17 00:56 18 11/14/17 21:57 18 11/14/17 20:20 99.0 F 83 20 123/79 11/14/17 18:43 20 11/14/17 17:12 98.8 F 88 18 139/87 98 11/14/17 14:45 20 11/14/17 12:39 98.5 F 79 18 124/81 97 Intake and Output 11/14/17 11/15/17 11/15/17 22:59 06:59 14:59 Intake Total 1240 360 Output Total 2500 2200 Balance -1260 -1840 Intake: IV 1000 NaCl 0.9% 1000 ml 1,000 1000 ml @ 75 mls/hr IV DIRECT GERRY Rx#:[id number] Oral 240 360 Output: Urine 2500 2200 Indwelling Catheter 2500 2200 Other: Total, Intake Amount 240 120 Total, Output Amount 1000 1000 Weight 64.864 kg - Exam Breasts: Present: deferred Cardiovascular: Present: Regular rate Lungs: Present: Clear to auscultation Abdomen: Present: soft, normal bowel sounds Extremities: Present: edema Incision: Present: intact (with italia), other (drain site ) - Labs Labs: Abnormal lab results 11/13/17 11/14/17 11/15/17 Range/Units 04:37 15:19 03:05 WBC 16.7 H (4.5-11.0) K/mm3 RBC 2.99 L (3.65-5.03) M/mm3 Hgb 9.4 L (10.1-14.3) gm/dl Hct 26.7 L (30.3-42.9) % MCHC 35 H (30-34) % Lymph % (Auto) 10.1 L (13.4-35.0) % [place] % (Auto) 7.8 H (0.0-7.3) % Lymph # (1.2-5.4) K/mm3 [place] # 1.3 H (0.0-0.8) K/mm3 Eos # 0.6 H (0.0-0.4) K/mm3 Seg Neutrophils % 78.3 H (40.0-70.0) % Seg Neutrophils # 13.0 H (1.8-7.7) K/mm3 Carbon Dioxide 19 L (22-30) mmol/L BUN 23 H (7-17) mg/dL Creatinine 2.9 H (0.7-1.2) mg/dL Calcium 6.9 L (8.4-10.2) mg/dL Ionized Calcium 4.1 L (4.8-5.6) mg/dL Total Protein 4.4 L (6.3-8.2) g/dL Albumin 2.3 L (3.9-5) g/dL /03/27 Range/Units 08:17 WBC 15.5 H (4.5-11.0) K/mm3 RBC 3.08 L (3.65-5.03) M/mm3 Hgb 9.5 L (10.1-14.3) gm/dl Hct 27.7 L (30.3-42.9) % MCHC (30-34) % Lymph % (Auto) 6.6 L (13.4-35.0) % [place] % (Auto) (0.0-7.3) % Lymph # 1.0 L (1.2-5.4) K/mm3 [place] # 1.1 H (0.0-0.8) K/mm3 Eos # 0.6 H (0.0-0.4) K/mm3 Seg Neutrophils % 82.3 H (40.0-70.0) % Seg Neutrophils # 12.8 H (1.8-7.7) K/mm3 Carbon Dioxide (22-30) mmol/L BUN (7-17) mg/dL Creatinine (0.7-1.2) mg/dL Calcium (8.4-10.2) mg/dL Ionized Calcium (4.8-5.6) mg/dL Total Protein (6.3-8.2) g/dL Albumin (3.9-5) g/dL
[2017-11-15] MEDS ORDERED: NORCO 7.5/325 PO PRN (10:00)
[2017-11-15] MEDS ORDERED: DULCOLAX PO NR (10:00)
[2017-11-15] MEDS: Centrum Liq PO SCH (11:21)
[2017-11-15] MEDS: PEPCID PO SCH (11:22)
[2017-11-15] MEDS: UNASYN/NS 3 GM/100 ML 3 GM/100 ML BAG IV SCH ×2 (11:23→23:09)
[2017-11-15] MEDS: NEURONTIN PO SCH ×2 (15:23→23:08)
--- NOTE | 2017-11-15 20:34 | Progress Note ---
Assessment and Plan Assessment: 1) SIRS: leukocytosis slightly better, fever resolved; likely due to hemorrhagic shock +/- pelvic hematoma +/-vulvar edema -blood cx negative -UA neg -CXR neg -CRP=4-->9 -repeat UA neg 2) Hemorrhagic shock post 3) DIC 4) Pelvic hematoma: CTA abdomen shows poorly defined pelvic collection and hemorrhage in rectus abdominus muscle 5) ELÍAS 6) Severe vulvar edema/laceration ? infection Plan: -f/u procalcitonin -continue unasyn -monitor leukocytosis -upon discharge will do keflex 500 mg po QID total 7 days until 11/[address] Mai Thanks Gardenia Meeks MD Subjective Date of service: 11/15/17 Principal diagnosis: Hemrrohagic shock; DIC; post hemorrhage Interval history: Feels better, Still vulvar pain and swelling but better. No fever. Micro: Blood cx 5/ ngtd Blood cx 5/7 ngtd Objective - Exam Narrative Exam: Alert in NAD pleasant NC/AT VIVI clear OP Neck no LNs Lungs CTA preet CV RRR Abdomen soft TTP, surg wound with dressings Genital marked vulvar edema Ext no edema Skin no rash - Constitutional Vitals: Vital Signs Temp Pulse Resp BP Pulse Ox 98.7 F 85 18 130/81 100 11/15/17 19:02 11/15/17 19:02 11/15/17 19:02 11/15/17 19:02 11/15/17 19:02 Temperature -Last 24 Hours Temperature 98.7 F Temperature 98.8 F Temperature 98.7 F Temperature 98.8 F - Labs CBC & Chem 7: 11/15/17 08:17 11/15/17 08:17 Labs: Abnormal lab results 11/13/17 11/15/17 11/15/17 Range/Units 04:37 03:05 08:17 WBC 16.7 H 15.5 H (4.5-11.0) K/mm3 RBC 2.99 L 3.08 L (3.65-5.03) M/mm3 Hgb 9.4 L 9.5 L (10.1-14.3) gm/dl Hct 26.7 L 27.7 L (30.3-42.9) % MCHC 35 H (30-34) % Lymph % (Auto) 10.1 L 6.6 L (13.4-35.0) % [place] % (Auto) 7.8 H (0.0-7.3) % Lymph # 1.0 L (1.2-5.4) K/mm3 [place] # 1.3 H 1.1 H (0.0-0.8) K/mm3 Eos # 0.6 H 0.6 H (0.0-0.4) K/mm3 Seg Neutrophils % 78.3 H 82.3 H (40.0-70.0) % Seg Neutrophils # 13.0 H 12.8 H (1.8-7.7) K/mm3 Potassium (3.6-5.0) mmol/L Chloride (98-107) mmol/L Carbon Dioxide (22-30) mmol/L BUN (7-17) mg/dL Creatinine (0.7-1.2) mg/dL Calcium (8.4-10.2) mg/dL Ionized Calcium 4.1 L (4.8-5.6) mg/dL 11/15/17 Range/Units 08:17 WBC (4.5-11.0) K/mm3 RBC (3.65-5.03) M/mm3 Hgb (10.1-14.3) gm/dl Hct (30.3-42.9) % MCHC (30-34) % Lymph % (Auto) (13.4-35.0) % [place] % (Auto) (0.0-7.3) % Lymph # (1.2-5.4) K/mm3 [place] # (0.0-0.8) K/mm3 Eos # (0.0-0.4) K/mm3 Seg Neutrophils % (40.0-70.0) % Seg Neutrophils # (1.8-7.7) K/mm3 Potassium 3.5 L (3.6-5.0) mmol/L Chloride 108.7 H (98-107) mmol/L Carbon Dioxide 19 L (22-30) mmol/L BUN 18 H (7-17) mg/dL Creatinine 2.4 H (0.7-1.2) mg/dL Calcium 7.0 L (8.4-10.2) mg/dL Ionized Calcium (4.8-5.6) mg/dL
[2017-11-16 04:45] LABS: Basophils % (Auto) 0.3 % (0.0-1.8); Eosinophils # (Auto) 0.5 K/mm3 (0.0-0.4); Eosinophils % (Auto) 3.1 % (0.0-4.3); Hematocrit 28.6 % (30.3-42.9); Hemoglobin 9.6 gm/dl (10.1-14.3); Lymphocytes # (Auto) 1.4 K/mm3 (1.2-5.4); Lymphocytes % (Auto) 9.7 % (13.4-35.0); Mean Corpuscular HGB Conc 34 % (30-34); Mean Corpuscular Hemoglobin 30 pg (28-32); Mean Corpuscular Volume 90 fl (79-97); Monocytes % (Auto) 6.7 % (0.0-7.3); Platelet Count 434 K/mm3 (140-440); Red Blood Count 3.19 M/mm3 (3.65-5.03)
--- NOTE | 2017-11-16 09:00 | Progress Note ---
Assessment and Plan Assessment: 1) SIRS: leukocytosis slightly better, low grade fever overnight; likely due to hemorrhagic shock +/- pelvic hematoma +/-vulvar edema -blood cx negative -UA neg -CXR neg -CRP=4-->9 -repeat UA neg 2) Hemorrhagic shock post 3) DIC 4) Pelvic hematoma: CTA abdomen shows poorly defined pelvic collection and hemorrhage in rectus abdominus muscle 5) ELÍAS 6) Severe vulvar edema/laceration ? infection Plan: -recheck CRP -f/u procalcitonin -continue unasyn D4/7 -monitor leukocytosis and fever -upon discharge will do keflex 500 mg po QID total 7 days until 11/19 Thanks Gardenia Meeks MD Subjective Date of service: 11/16/17 Principal diagnosis: Hemrrohagic shock; DIC; post hemorrhage Interval history: Feels better, vulvar pain and swelling better. Had a low grade fever 100.4 Micro: Blood cx 5/4 ngtd Blood cx 5/7 ngtd Objective - Exam Narrative Exam: Alert in NAD pleasant NC/AT VIVI clear OP Neck no LNs Lungs CTA preet CV RRR Abdomen soft TTP, surg wound with dressings Genital marked vulvar edema Ext no edema Skin no rash - Constitutional Vitals: Vital Signs Temp Pulse Resp BP Pulse Ox 99.4 F 77 16 129/73 100 11/16/17 04:00 11/16/17 04:00 11/16/17 04:00 11/16/17 04:00 11/15/17 19:02 Temperature -Last 24 Hours Temperature 99.4 F Temperature 100.4 F Temperature 99.2 F Temperature 98.7 F Temperature 98.8 F - Labs CBC & Chem 7: 11/16/17 04:28 11/15/17 08:17 Labs: Abnormal lab results 11/15/17 11/16/17 Range/Units 08:17 04:28 WBC 15.0 H (4.5-11.0) K/mm3 RBC 3.19 L (3.65-5.03) M/mm3 Hgb 9.6 L (10.1-14.3) gm/dl Hct 28.6 L (30.3-42.9) % Lymph % (Auto) 9.7 L (13.4-35.0) % [place] # 1.0 H (0.0-0.8) K/mm3 Eos # 0.5 H (0.0-0.4) K/mm3 Seg Neutrophils % 80.2 H (40.0-70.0) % Seg Neutrophils # 12.0 H (1.8-7.7) K/mm3 Potassium 3.5 L (3.6-5.0) mmol/L Chloride 108.7 H (98-107) mmol/L Carbon Dioxide 19 L (22-30) mmol/L BUN 18 H (7-17) mg/dL Creatinine 2.4 H (0.7-1.2) mg/dL Calcium 7.0 L (8.4-10.2) mg/dL
[2017-11-16] MEDS: PERCOCET 5/325 PO PRN ×2 (09:36→17:56)
[2017-11-16] MEDS: Centrum Liq PO SCH (10:36)
[2017-11-16] MEDS: NEURONTIN PO SCH ×3 (10:36→22:06)
[2017-11-16] MEDS: UNASYN/NS 3 GM/100 ML 3 GM/100 ML BAG IV SCH ×2 (10:37→22:08)
[2017-11-16] MEDS: PEPCID PO SCH (10:37)
[2017-11-16] MEDS ORDERED: PROCTOFOAM-HC PR PRN (17:18)
[2017-11-16] MEDS ORDERED: XYLOCAINE TOPICAL 5% TP ONE (17:18)
[2017-11-16] MEDS: MYCOLOG TP SCH (22:05)
[2017-11-17 04:36] LABS: Basophils % (Auto) 0.2 % (0.0-1.8); Eosinophils # (Auto) 0.6 K/mm3 (0.0-0.4); Eosinophils % (Auto) 4.2 % (0.0-4.3); Hematocrit 26.6 % (30.3-42.9); Hemoglobin 8.9 gm/dl (10.1-14.3); Lymphocytes # (Auto) 1.7 K/mm3 (1.2-5.4); Mean Corpuscular HGB Conc 34 % (30-34); Mean Corpuscular Hemoglobin 31 pg (28-32); Mean Corpuscular Volume 91 fl (79-97); Monocytes # (Auto) 1.2 K/mm3 (0.0-0.8); Platelet Count 489 K/mm3 (140-440); Red Blood Count 2.93 M/mm3 (3.65-5.03); Red Cell Distribution Width 14.2 % (13.2-15.2)
[2017-11-17 06:18] VITALS: BP 121/76
[2017-11-17] MEDS: PERCOCET 5/325 PO PRN ×2 (06:28→14:01)
--- NOTE | 2017-11-17 09:08 | Progress Note ---
Assessment and Plan A/P PPD10 POD 10 /supracervical hysterectomy Post operative hypoxemic respiratory failure on MVS -Hemorrhagic shock -Massive blood transfusion -Metabolic acidosis -Acute kidney failure secondary to ATN -Sepsis improved continue abx flagyl and zosyn wbc decreased to 13 -post hysterectomy -Post hemorrhage stable H/H -DIC resolving -Hyperkalemia resolved patient improving great uop spoke with dr. govea stat Cr today last trending down to 2.4 d/c brewer h/h stable pain much improved ambulating italia removed will consider to d/c home today or tomorrow Subjective - Subjective Date of service: 11/17/17 Principal diagnosis: Hemrrohagic shock; DIC; post hemorrhage Interval history: This is a 26 yo at 40+1 weeks admitted to labor and delivery with known BP 140-150/90s. patient was sent in by Dr. Lowe. She is late to care with hx of trich treated in this . Patient reports: appetite normal, voiding normally, pain well controlled, flatus , bowel movement, ambulating normally : doing well Objective - Vital Signs Latest vital signs: Vital Signs Temp Pulse Resp BP BP Pulse Ox 11/17/17 04:35 98.2 F 76 18 121/76 11/17/17 00:05 98.9 F 81 18 119/75 11/16/17 20:05 98.2 F 85 18 129/82 11/16/17 17:08 99.5 F 79 18 138/72 99 11/16/17 09:36 20 Intake and Output 11/16/17 11/17/17 11/17/17 23:59 07:59 15:59 Intake Total 600 240 Output Total 2500 1000 Balance -1900 -760 Intake: Intake, Free Water 600 240 Output: Urine 2500 1000 Indwelling Catheter 2500 1000 Other: Total, Output Amount 1000 1000 # Bowel Movements 1 - Exam Breasts: Present: normal Cardiovascular: Present: Regular rate, Normal S1 Lungs: Present: Clear to auscultation, Normal air movement Abdomen: Present: normal appearance, soft, normal bowel sounds. Absent: distention, tenderness, guarding Vulva: both: normal Extremities: Present: normal Deep Tendon Reflex Grade: Normal +2 Incision: Present: normal, dry, intact - Labs Labs: Abnormal lab results 11/14/17 11/16/17 11/17/17 Range/Units 08:19 10:13 04:23 WBC 13.4 H (4.5-11.0) K/mm3 RBC 2.93 L (3.65-5.03) M/mm3 Hgb 8.9 L (10.1-14.3) gm/dl Hct 26.6 L (30.3-42.9) % Plt Count 489 H (140-440) K/mm3 Lymph % (Auto) 13.0 L (13.4-35.0) % [place] % (Auto) 9.0 H (0.0-7.3) % [place] # 1.2 H (0.0-0.8) K/mm3 Eos # 0.6 H (0.0-0.4) K/mm3 Seg Neutrophils % 73.6 H (40.0-70.0) % Seg Neutrophils # 9.9 H (1.8-7.7) K/mm3 C-Reactive Protein 11.80 H (0.00-1.30) mg/dL Miscellaneous Test Flexitest 1 H
--- NOTE | 2017-11-17 11:01 | Progress Note ---
Assessment and Plan Assessment: 1) SIRS: leukocytosis improving, fever resolved; likely due to hemorrhagic shock +/- pelvic hematoma +/-vulvar edema -blood cx negative -UA neg -CXR neg -CRP=4-->9 -->11 -procal=2 -repeat UA neg 2) Hemorrhagic shock post 3) DIC 4) Pelvic hematoma: CTA abdomen shows poorly defined pelvic collection and hemorrhage in rectus abdominus muscle 5) ELÍAS 6) Severe vulvar edema/laceration ? infection Plan: -continue unasyn D5/7 -monitor leukocytosis and fever -upon discharge will do keflex 500 mg po QID total 7 days until 11/19 Ok to d/c home I am signing off Thanks Gardenia Meeks MD Subjective Date of service: 11/17/17 Principal diagnosis: Hemrrohagic shock; DIC; post hemorrhage Interval history: Feels better, vulvar pain and swelling remarkably better. NO fever. Micro: Blood cx 5/4 neg Blood cx 5/7 neg uirne cx 5/7 neg Objective - Exam Narrative Exam: Alert in NAD pleasant NC/AT VIVI clear OP Neck no LNs Lungs CTA preet CV RRR Abdomen soft TTP, surg wound with dressings Genital marked vulvar edema improved Ext no edema Skin no rash - Constitutional Vitals: Vital Signs Temp Pulse Resp BP Pulse Ox 98.2 F 76 18 121/76 99 11/17/17 04:35 11/17/17 04:35 11/17/17 04:35 11/17/17 04:35 11/16/17 17:08 Temperature -Last 24 Hours Temperature 98.2 F Temperature 98.9 F Temperature 98.2 F Temperature 99.5 F - Labs CBC & Chem 7: 11/17/17 04:23 11/15/17 08:17 Labs: Abnormal lab results 11/14/17 11/16/17 11/17/17 Range/Units 08:19 10:13 04:23 WBC 13.4 H (4.5-11.0) K/mm3 RBC 2.93 L (3.65-5.03) M/mm3 Hgb 8.9 L (10.1-14.3) gm/dl Hct 26.6 L (30.3-42.9) % Plt Count 489 H (140-440) K/mm3 Lymph % (Auto) 13.0 L (13.4-35.0) % [place] % (Auto) 9.0 H (0.0-7.3) % [place] # 1.2 H (0.0-0.8) K/mm3 Eos # 0.6 H (0.0-0.4) K/mm3 Seg Neutrophils % 73.6 H (40.0-70.0) % Seg Neutrophils # 9.9 H (1.8-7.7) K/mm3 C-Reactive Protein 11.80 H (0.00-1.30) mg/dL Miscellaneous Test Flexitest 1 H
[2017-11-17] MEDS: Centrum Liq PO SCH (11:03)
[2017-11-17] MEDS: PEPCID PO SCH (11:03)
[2017-11-17] MEDS: MYCOLOG TP SCH (11:04)
[2017-11-17] MEDS: NEURONTIN PO SCH (11:04)
[2017-11-17 11:05] LABS: Albumin 2.4 g/dL (3.9-5); Calcium 7.5 mg/dL (8.4-10.2)
[2017-11-17] MEDS: UNASYN/NS 3 GM/100 ML 3 GM/100 ML BAG IV SCH (11:14)
--- NOTE | 2017-11-17 13:22 | Consultation ---
History of Present Illness - [facility] Consult date: 11/17/17 Consult reason: joint pain History of present illness: 26 y/o female with c/o right groin pain, s/p hysterectomy for atonic uterus post , denies pain elsewhere in LE's....no calf pain .... Past History Past Medical History: No medical history Past Surgical History: No surgical history Social history: no significant social history, single. denies: smoking, alcohol abuse, prescription drug abuse Family history: no significant family history Medications and Allergies Allergies Allergy/AdvReac Type Severity Reaction Status Date / Time No Known Allergies Allergy Unverified 11/06/17 15:33 Home Medications Medication Instructions Recorded Confirmed Last Taken Type Pnv No.95/Ferrous Fum/Folic AC 1 tab PO QDAY 11/06/17 11/06/17 11/05/17 History [ Vitamins Tablet] Cephalexin [Keflex] 500 mg PO Q12HR #14 cap 11/17/17 Unknown Rx Docusate Sodium [Colace] 100 mg PO BID PRN #30 capsule 11/17/17 Unknown Rx Famotidine [Pepcid] 20 mg PO QDAY #30 tablet 11/17/17 Unknown Rx Fluconazole [Diflucan] 150 mg PO ONCE #1 tablet 11/17/17 Unknown Rx Gabapentin [Neurontin] 400 mg PO Q8HR #30 capsule 11/17/17 Unknown Rx oxyCODONE /ACETAMINOPHEN [Percocet 1 tab PO Q6HR PRN #30 tablet 11/17/17 Unknown Rx 5/325] Active Meds: Active Medications Acetaminophen (Tylenol) 650 mg PO Q4H PRN PRN Reason: Pain MILD(1-3)/Fever >100.5/TANG Acetaminophen/Hydrocodone Bitart ([place] 7.5/325) 1 each PO Q4H PRN PRN Reason: Pain, Moderate (4-6) Last Admin: 11/15/17 10:06 Dose: 1 each Bisacodyl (Dulcolax) 10 mg OH BID PRN PRN Reason: Constipation Last Admin: 11/15/17 10:06 Dose: 10 mg Diphenhydramine HCl (Benadryl) 25 mg PO Q6H PRN PRN Reason: Itching Last Admin: 11/15/17 16:24 Dose: 25 mg Famotidine (Pepcid) 20 mg PO DAILY [facility] Last Admin: 11/17/17 11:03 Dose: 20 mg Fentanyl (Sublimaze) 50 mcg IV Q2H PRN PRN Reason: Pain , Severe (7-10) Last Admin: 11/13/17 07:58 Dose: 50 mcg Gabapentin (Neurontin) 400 mg PO TID [facility] Last Admin: 11/17/17 11:04 Dose: 400 mg Hydrocortisone/Pramoxine (Proctofoam-Hc) 1 applic OH Q12H PRN PRN Reason: Hemorrhoids Last Admin: 11/16/17 20:03 Dose: 1 applic Hydrophilic Ointment (Vaseline Lip Therapy) 1 applic TP Q2HR PRN PRN Reason: Dry Lips Sodium Chloride (Nacl 0.9% 1000 Ml) 1,000 mls @ 75 mls/hr IV DIRECT [facility] Last Admin: 11/14/17 21:56 Dose: 75 mls/hr Ampicillin Sodium/Sulbactam Sodium (Unasyn/Ns 3 Gm/100 Ml) 3 gm in 100 mls @ 200 mls/hr IV Q12HR [facility]; Protocol Stop: 11/19/17 23:59 Last Admin: 11/17/17 11:14 Dose: 200 mls/hr Magnesium Hydroxide (Milk Of Magnesia) 30 ml PO HS PRN PRN Reason: Constipation Last Admin: 11/14/17 14:49 Dose: 30 ml Multi-Ingredient Ointment (Lansinoh) 1 applic TP PRN PRN PRN Reason: Sore Nipples Multivitamins (Centrum Liq) 5 ml PO QDAY [facility] Last Admin: 11/17/17 11:03 Dose: 5 ml Nystatin/Triamcinolone Acetonide (Mycolog) 1 applic TP BID [facility] Last Admin: 11/17/17 11:04 Dose: 1 applic Ondansetron HCl (Zofran) 4 mg IV Q8H PRN PRN Reason: Nausea And Vomiting Oxycodone/Acetaminophen (Percocet 5/325) 2 tab PO Q4H PRN PRN Reason: Pain, Moderate (4-6) Last Admin: 11/17/17 06:28 Dose: 2 tab Phenol (Chloraseptic) 1 spray MM PRN PRN PRN Reason: Sore Throat Last Admin: 11/09/17 22:10 Dose: 1 spray Promethazine HCl (Phenergan) 25 mg OH Q6H PRN PRN Reason: Nausea And Vomiting Promethazine HCl (Phenergan) 25 mg PO Q6H PRN PRN Reason: Nausea And Vomiting Simethicone (Mylicon) 80 mg PO Q6H PRN PRN Reason: Gas pain Last Admin: 11/14/17 21:57 Dose: 80 mg Sodium Chloride (Sodium Chloride Flush Syringe 10 Ml) 10 ml IV PRN GERRY Witch Yudelka/Glycerin (Tucks Pad) 1 each TP PRN PRN PRN Reason: Hemorrhoid/cleansing/soothing Last Admin: 11/14/17 22:00 Dose: 1 each Physical Examination - Physical exam Narrative exam: pelvis/LE's - slightly tender at right groin, decreased passive ROM, moderate bilateral edema, nontender at knees/ankles/feet.. Assessment and Plan pain source appear to be soft tissue, most likely from recent pelvic surgery...encouraged patient to continue weight bearing as tolerated....
--- NOTE | 2017-11-17 16:01 | XRay Report ---
Complete pelvis: Recent surgery with inability to walk. AP and oblique views demonstrate normal bony structures. The hips and SI joints are unremarkable and well aligned. No fractures. Well mineralized bones. Increased soft tissue fullness of the pelvis possibly related to recent [employer] or OB surgery. Impression: No bone or joint abnormality identified.
--- NOTE | 2017-11-17 17:45 | Event Note ---
Date: 11/17/17 Patient had xray of hip pelvis and leg. neg result. will discharge to f/u next week
--- NOTE | 2017-11-17 17:48 | Discharge Summary ---
Providers - Providers Date of Admission: 11/06/17 14:40 Date of discharge: 11/17/17 Attending physician: AMIRA VELASQUEZ MD 11/07/17 15:54 Consult to Physician [CONS] Routine Comment: Consulting Provider: BOO MCKEON Physician Instructions: Reason For Exam: Critical Care Admit 11/07/17 18:55 Consult to Dietitian/Nutrition [CONS] Routine Physician Instructions: Reason For Exam: Reason for Consult: Evaluate nutritional intake 11/07/17 19:25 Consult to Dietitian/Nutrition [CONS] Routine Physician Instructions: Reason For Exam: Reason for Consult: Evaluate nutritional intake 11/08/17 08:55 Consult to Physician [CONS] Routine Comment: Consulting Provider: MAIA COOK Physician Instructions: Reason For Exam: acute renal failure, ATN, hyperkalemia 11/09/17 07:47 Consult to Physician [CONS] Routine Comment: Consulting Provider: TRISTON MARKHAM Physician Instructions: Reason For Exam: DIC, s/p hysterectomy 11/10/17 13:05 Physical Therapy Evaluation and Treat [CONS] Urgent Comment: patient needs assistance in getting out of bed Reason For Exam: s/p hypovolemic shock, pp hemorrhage supracervical 11/13/17 08:27 Consult to Physician [CONS] Routine Comment: Consulting Provider: EULA SIMS Physician Instructions: Reason For Exam: elevated wbc 11/15/17 13:38 Consult to Physician [CONS] Routine Comment: Consulting Provider: BRAD BASSETT Physician Instructions: Reason For Exam: difficulty walking after hysterectomy 11/15/17 14:11 Physical Therapy Evaluation and Treat [CONS] Routine Comment: Reason For Exam: Please work with pt twice per day 11/17/17 08:44 Consult to Physician [CONS] Routine Comment: Consulting Provider: MAIA COOK Physician Instructions: Reason For Exam: renal acute Primary care physician: AMIRA VELASQUEZ MD Hospitalization Reason for admission: induction of labor Delivery: Procedure: other (suprascervical hysterectomy ) Episiotomy: none Laceration: none Incision: normal Other procedures: other (hysterectomy secondary to hypovolemia shock , dic, severe anemia and SIRS ) complications: uterine atony, wound infection Discharge diagnosis: IUP at term delivered [place] baby: female Condition at discharge: Good Disposition: DC-01 TO HOME OR SELFCARE Plan - Discharge Medications Prescriptions: Cephalexin [Keflex] 500 mg PO Q12HR #14 cap Docusate Sodium [Colace] 100 mg PO BID PRN #30 capsule PRN Reason: Constipation Famotidine [Pepcid] 20 mg PO QDAY #30 tablet Fluconazole [Diflucan] 150 mg PO ONCE #1 tablet Gabapentin [Neurontin] 400 mg PO Q8HR #30 capsule oxyCODONE /ACETAMINOPHEN [Percocet 5/325] 1 tab PO Q6HR PRN #30 tablet PRN Reason: Pain - Provider Discharge Summary Activity: routine, no sex for 6 weeks, no strenuous exercise Diet: routine Additional instructions: [] Smoking cessation referral if applicable(refer to patient education folder for contact #) [] Refer to [facility]'s [facility] Booklet Call your doctor immediately for: * Fever > 100.5 * Heavy vaginal bleeding ( >1 pad per hour) * Severe persistent headache * Shortness of breath * Reddened, hot, painful area to leg or breast * Drainage or odor from incision. * Keep incision clean and dry at all times and follow doctor's instructions regarding bathing/showering - Follow up plan Follow up: AMIRA VELASQUEZ MD [Primary Care Provider] - 7 Days
--- NOTE | 2017-11-17 19:43 | Progress Note ---
Assessment and Plan - Patient Problems (1) Acute kidney failure with tubular necrosis Current Visit: Yes Status: Acute Plan to address problem: Ischemic Acute tubular necrosis secondary to hypotension. Improving urine output and kidney indices are also much better. Follow-up electrolytes and renal function. Following discharge, will follow up kidney function in 1 week and see her in the office in 2 weeks. Patient will need physical therapy and assistance at home due to the weakness. Discussed with patient (2) Acute blood loss anemia Current Visit: Yes Status: Acute Plan to address problem: Follow-up hemoglobin (3) Acute respiratory failure with hypoxia Current Visit: Yes Status: Acute Plan to address problem: Resolved (4) Hyperkalemia Current Visit: Yes Status: Acute Plan to address problem: Improved (5) Metabolic acidosis Current Visit: Yes Status: Acute Plan to address problem: Improving (6) Hypocalcemia Current Visit: Yes Status: Acute Plan to address problem: Secondary to massive transfusion. Albumin is also low. Follow-up calcium as an outpatient Subjective Date of service: 11/17/17 Principal diagnosis: Hemrrohagic shock; DIC; post hemorrhage Interval history: Patient seen sitting on wheelchair in x-ray. Patient has no complaints. She would like to go home but is very weak and is having difficulty walking. No chest pain or shortness of breath. No nausea or vomiting. Objective - Exam Narrative Exam: Young -[place] female lying in bed in no acute distress HEENT: NCAT, pale oral mucous membrane Neck: Supple, no venous distention CVS: S1S2 RRR with no murmur, rub or gallop Chest: Clear to auscultation but breath sounds diminished in lower zones Abdomen: Protuberant, soft, Extremities: Mild edema Skin no rash, warm and dry Neuro: Awake, Both upper and lower extremity weakness. Patient barely able to sit up so I can examine her lungs due to upper extremity weakness - Vital Signs Vital signs: Vital Signs - 12hr 11/17/17 14:01 Respiratory 20 Rate - Lab 11/17/17 04:23 11/17/17 10:07 Most recent lab results Calcium 7.5 mg/dL (8.4-10.2) L 11/17/17 10:07 Phosphorus 5.50 mg/dL (2.5-4.5) H 11/13/17 04:37 Magnesium 1.50 mg/dL (1.7-2.3) L 11/13/17 04:37 Urine Creatinine 32.4 mg/dL (0.1-20.0) H 11/12/17 20:24 Urine Total Protein 10 mg/dL (5-11.8) 11/10/17 13:14
== END 2017-11-17 19:00 | disposition home or self-care (01) | DRG 987 ==
LOC: LD 14:40 → CC1 11-07 14:54 → OB 11-11 13:23
PROVIDERS: ADMIT Obstetrics & Gynecology; ATTEND Obstetrics & Gynecology
PROC: 06HT33Z Insertion of Infusion Device into Right Foot Vein, Percutaneous Approach (ICD-10-PCS; 2017-11-06)
PROC: 10E0XZZ Delivery of Products of Conception, External Approach (ICD-10-PCS; principal; 2017-11-07)
PROC: 0UT90ZL Resection of Uterus, Supracervical, Open Approach (ICD-10-PCS; 2017-11-07)
PROC: 0UQC0ZZ Repair Cervix, Open Approach (ICD-10-PCS; 2017-11-07)
PROC: 5A1945Z Respiratory Ventilation, 24-96 Consecutive Hours (ICD-10-PCS; 2017-11-07)
PROC: 0BH17EZ Insertion of Endotracheal Airway into Trachea, Via Natural or Artificial Opening (ICD-10-PCS; 2017-11-07)
PROC: 30233K1 Transfusion of Nonautologous Frozen Plasma into Peripheral Vein, Percutaneous Approach (ICD-10-PCS; 2017-11-07)
PROC: 30233L1 Transfusion of Nonautologous Fresh Plasma into Peripheral Vein, Percutaneous Approach (ICD-10-PCS; 2017-11-07)
PROC: 30233M1 Transfusion of Nonautologous Plasma Cryoprecipitate into Peripheral Vein, Percutaneous Approach (ICD-10-PCS; 2017-11-07)
PROC: 30233R1 Transfusion of Nonautologous Platelets into Peripheral Vein, Percutaneous Approach (ICD-10-PCS; 2017-11-09)
PROC: 3E0234Z Introduction of Serum, Toxoid and Vaccine into Muscle, Percutaneous Approach (ICD-10-PCS; 2017-11-12)
DX: O13.4 Gestational [pregnancy-induced] hypertension without significant proteinuria, complicating childbirth (principal); J96.01 Acute respiratory failure with hypoxia; N17.0 Acute kidney failure with tubular necrosis; R65.21 Severe sepsis with septic shock; J69.0 Pneumonitis due to inhalation of food and vomit; D62 Acute posthemorrhagic anemia; L76.32 Postprocedural hematoma of skin and subcutaneous tissue following other procedure; O76 Abnormality in fetal heart rate and rhythm complicating labor and delivery; O75.1 Shock during or following labor and delivery; O72.1 Other immediate postpartum hemorrhage; Z37.0 Single live birth; Z3A.40 40 weeks gestation of pregnancy; O71.3 Obstetric laceration of cervix; O90.4 Postpartum acute kidney failure; O72.3 Postpartum coagulation defects; O90.89 Other complications of the puerperium, not elsewhere classified; E87.5 Hyperkalemia; O85 Puerperal sepsis; Y83.8 Other surgical procedures as the cause of abnormal reaction of the patient, or of later complication, without mention of misadventure at the time of the procedure
CPT/HCPCS: 36415; 70450; 71045; 72190; 74174; 80048; 80053; 81001; 82140; 82330; 82565; 82570; 82803; 83615; 83735; 84100; 84156; 84450; 84460; 84550; 85007; 85014; 85018; 85025; 85027; 85379; 85384; 85610; 85730; 86140; 86592; 86850; 86900; 86901; 86920; 86965; 87040; 87086; 88307; 90707; 90715; 93306; 94002; 94003; 94660; 94760; A4649; A6250; J0295; J0330; J0610; J0690; J1815; J2370; J2405; J2543; J2590; J3010; J7030; J7040; J7070; J7120; P9012; P9016; P9017; P9035; P9045; P9047; Q9967